=== PATIENT | male | born 1960 ===

== ENCOUNTER 2016-09-16 21:33 | Emergency (ER) | payer OTHER ==
[2016-09-16 21:33] VITALS: BMI 25.7
[2016-09-16 21:44] VITALS: BP 120/79; PULSE 74; RESP 20; TEMP 97.9; O2SAT 98
[2016-09-16] MEDS ORDERED: Lidocaine 1% Inj (20ml) INFIL STA (21:52)
[2016-09-16] MEDS ORDERED: Lidocaine 1% Inj (20ml) ONE (21:56)
[2016-09-16] MEDS ORDERED: Bacitracin 500 Units/gm Oint Foilpak UD ONE (21:57)
--- NOTE | 2016-09-16 22:31 | C.PDOC ---
History Of Present Illness 56 year old female presents to ED with complaints of laceration to right forearm when moving large picture frame and the glass cracked and cut his arm. He denies any numbness, weakness, limitation of arm movement and no foreign body sensation. Time Seen by Provider: 09/16/16 21:47 Chief Complaint (Nursing): Abnormal Skin Integrity History Per: Patient History/Exam Limitations: no limitations Onset/Duration Of Symptoms: Sudden Onset Current Symptoms Are (Timing): Still Present Location Of Injury: Right: Arm Past Medical History Reviewed: Historical Data, Nursing Documentation, Vital Signs Vital Signs: Last Vital Signs Temp 97.9 F 09/16/16 21:40 Pulse 74 09/16/16 21:40 Resp 20 09/16/16 21:40 BP 120/79 09/16/16 21:40 Pulse Ox 98 09/16/16 21:40 - Medical History PMH: Asthma, Fractures (right mid clavicle), Chronic Pain (chronic shoulder pain s/p work injury in 2009) Surgical History: Endoscopy, Hernia Repair (inguinal) - [employer] [facility] [employer] Procedures INJECT/INFUSE NEC (02/15/14) Family History: States: Unknown Family Hx - Social History Hx Tobacco Use: No Hx Alcohol Use: No Hx Substance Use: No - Immunization History Hx Tetanus Toxoid Vaccination: No Hx Influenza Vaccination: No Hx Pneumococcal Vaccination: No Review Of Systems Except As Marked, All Systems Reviewed And Found Negative. Skin: Positive for: Other (laceration) Physical Exam - Physical Exam Appears: Non-toxic, No Acute Distress Skin: Warm, Dry, Other (3cm x0.5cm laceration to right dorsal proximal forearm, no active bleeding) Head: Atraumatic, Normacephalic Eye(s): bilateral: Normal Inspection Neck: Normal ROM Extremity: Normal ROM, No Tenderness, Capillary Refill (<2 seconds), No Deformity, No Swelling, Other (laceration right arm) Pulses: Right Radial: Normal Neurological/Psych: Oriented x3, Normal Speech ED Course And Treatment O2 Sat by Pulse Oximetry: 98 Laceration - Laceration Repair right arm Wound Length (In cm): 3 Description Of Wound: Linear, Clean Wound Cleansed With: Betadine, Sterile Saline Anesthesia: Lidocaine 1% Wound Examination: Irrigated With Saline, No FB With Wound Exploration, No Tendon Injury With Wound Exploration Wound Closure: Suture Suture Technique And Material Used: Interrupted (3), Nylon (4-0) Wound Complexity: Simple Medical Decision Making Medical Decision Making: Patient with arm laceration. Laceration repair performed and tolerated well. Bacitracin and dressing applied Disposition Counseled Patient/Family Regarding: Diagnosis, Need For Followup - Disposition Disposition: HOME/ ROUTINE Disposition Time: 22:23 Condition: STABLE Additional Instructions: Keep area clean and dry. May wash gently with soap and water, do not use alcohol or iodine solution. Change dressing 1-2 times daily. Return to ER if fever occurs, redness or swelling around wound, pus in the wound. 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
== END 2016-09-16 22:40 | disposition home or self-care (01) ==
LOC: C.ER 21:33
DX: S41.111A Laceration without foreign body of right upper arm, initial encounter (principal); W25.XXXA Contact with sharp glass, initial encounter; Y93.89 Activity, other specified; Y92.9 Unspecified place or not applicable

== ENCOUNTER 2017-01-26 08:27 | Emergency (ER) | payer MEDICAID, OTHER ==
[2017-01-26 08:36] VITALS: BMI 26.6
[2017-01-26 08:40] VITALS: O2SAT 98
[2017-01-26] MEDS ORDERED: Sodium Chloride 0.9% 1,000 ML IV ONE (09:00)
[2017-01-26] MEDS ORDERED: Sodium Chloride 0.9% 1,000 ML ONE ×2 (09:08→11:03)
--- NOTE | 2017-01-26 09:12 | C.PDOC ---
History Of Present Illness 56 yr old male w/PMHx of colitis, last colonoscopy 1 yr ago- nrmal, hx of alcohol abuse, presents to the ER for evaluation of diffuse lower abdominal pain for the past few weeks associated with bright right blood in stool for the past 3 days. Patient reports noted watery diarrhea# 5-6 episode/daily with some blood since yesterday. Patient reports similar symptoms in past, " when was diagnosed with colitis". Otherwise, Patient denies fever, chills, headache, dizziness, neck pain, dyspnea, chest pain, palpitation, diaphoresis, SOB, nausea, vomiting, denies melena, dysuria, weakness or numbness. Ambulate to ED for evaluation, not in nay apparent distress. Time Seen by Provider: 01/26/17 08:36 Chief Complaint (Nursing): Abdominal Pain History Per: Patient History/Exam Limitations: no limitations Onset/Duration Of Symptoms: Days Past Medical History Reviewed: Historical Data, Nursing Documentation, Vital Signs Vital Signs: Last Vital Signs Temp 98.4 F 01/26/17 13:10 Pulse 77 01/26/17 13:10 Resp 18 01/26/17 13:10 BP 153/103 H 01/26/17 13:10 Pulse Ox 98 01/26/17 13:10 - Medical History PMH: Anxiety, Asthma, Fractures (right mid clavicle), Chronic Pain (chronic shoulder pain s/p work injury in 2009) Surgical History: Endoscopy, Hernia Repair (inguinal) - [facility] Procedures INJECT/INFUSE NEC (02/15/14) Family History: States: No Known Family Hx - Social History Hx Tobacco Use: No Hx Alcohol Use: No Hx Substance Use: No - Immunization History Hx Tetanus Toxoid Vaccination: Yes (up to date as of 6 months) Hx Influenza Vaccination: No Hx Pneumococcal Vaccination: No Review Of Systems Except As Marked, All Systems Reviewed And Found Negative. Constitutional: Negative for: Fever Cardiovascular: Negative for: Chest Pain, Palpitations Respiratory: Negative for: Shortness of Breath Gastrointestinal: Positive for: Abdominal Pain (Lower), Other ((+) Rectal bleeding with bright red blood). Negative for: Nausea, Vomiting Genitourinary: Negative for: Dysuria Neurological: Negative for: Weakness, Numbness Physical Exam - Physical Exam Appears: Non-toxic, No Acute Distress Skin: Warm, Dry, No Rash Head: Normacephalic Eye(s): bilateral: PERRL Nose: No Flaring Oral Mucosa: Moist, No Drooling Throat: No Drooling Neck: Trachea Midline, Supple Cardiovascular: Rhythm Regular, No Murmur Respiratory: No Decreased Breath Sounds, No Accessory Muscle Use, No Rales, No Rhonchi, No Stridor, No Wheezing Gastrointestinal/Abdominal: Soft, Tenderness (Diffuse mild lower abdominal tenderness), No Organomegaly, No Distention, No Guarding, No Rebound Rectal: Rectal Tone (normal), Heme Negative Back: No CVA Tenderness Extremity: Normal ROM, No Pedal Edema, No Swelling Neurological/Psych: Oriented x3, Normal Speech, Normal Motor, Normal Sensation, Normal Reflexes ED Course And Treatment - Laboratory Results Result Diagrams: 01/26/17 09:07 01/26/17 09:07 ECG: Interpreted By Me, Viewed By Me ECG Interpretation: Normal Interpretation Of ECG: SR@71/min, NAD, no acute T wave or ST-T changes. O2 Sat by Pulse Oximetry: 98 (RA) Pulse Ox Interpretation: Normal - Radiology CXR: Viewed By Me, Read By Radiologist CXR Interpretation: Yes: No Acute Disease - CT Scan/US CT - Abd & Pelvis w/ PO Contrast Other Rad Studies (CT/US): Read By Radiologist, Radiology Report Reviewed CT/US Interpretation: PROCEDURE: CT Abdomen and Pelvis without IV contrast. HISTORY: bloody diarrhea. COMPARISON: CT abdomen and pelvis without contrast performed 02/24/12. TECHNIQUE: Contiguous axial images of the abdomen and pelvis. Oral contrast was administered. No IV contrast given. Coronal and Sagittal reformats generated and reviewed. Radiation dose: Total exam DLP = 484.61 mGy-cm. This CT exam was performed using one or more of the following dose reduction techniques: Automated exposure control, adjustment of the mA and/ or kV according to patient size, and/or use of iterative reconstruction technique. FINDINGS: There is limited evaluation of the solid organs without the administration of IV contrast. LOWER THORAX: No visible consolidation, pleural effusion, or pneumothorax. LIVER: Hypoattenuation of the liver compatible with hepatic steatosis. GALLBLADDER AND BILE DUCTS: Unremarkable. PANCREAS: Unremarkable. SPLEEN: Unremarkable. ADRENALS: Unremarkable. KIDNEYS AND URETERS: No hydronephrosis or obstructing renal calculus. BLADDER : The urinary bladder appears unremarkable. REPRODUCTIVE: Unremarkable. APPENDIX: The presumed appendix appears within normal limits of caliber. No secondary signs of acute appendicitis. BOWEL: The stomach is nondistended. The bowel loops appear within normal limits of caliber without evidence of intestinal obstruction. Colonic wall thickening of the mid to distal transverse and left/rectosigmoid colon concerning for colitis (i.e. Infectious, inflammatory, ischemic). PERITONEUM: No significant free fluid. No definite free air. LYMPH NODES: No bulky lymphadenopathy identified. VASCULATURE: No aortic aneurysm. BONES: Degenerative changes. OTHER FINDINGS: None. IMPRESSION: Colonic wall thickening of the mid to distal transverse and left/ rectosigmoid colon concerning for colitis (i.e. Infectious, inflammatory, ischemic). Hypoattenuation of the liver compatible with hepatic steatosis. Progress Note: On re-eval, pt is afebrile, hemodynamicaly stable. NOn-toxic. Tolerate PO well in ED. Neck: SUpple,. Lungs: CTA B/L, BS equal B/L. CVS: (+) S1S2, reg. Abd: Benign, (-) guarding, (-) rebound. Back: (-) CVA tenderness. Blood work review, mild leukocytosis with left shift. CBC, UA- normal study. CT abd/plevis and c/w colitis. Case discussed with ED attending dionne Mitchell with discharge,outpty f/u recommend. results review and discussed with pt. Pt has clinical findings c/w colitis, afebrile, no acute leukocytosis, no anemia. Tolerate Po well. Pt advised, diet restriction. ref. to F/u with PMD, GI in 2- 3 days for re-eavl. return to ED if any worsening ro new changes. Medical Decision Making Medical Decision Making: PLAN: * CT - Abd & Pelvis w/ PO & IV Contrast * CXR * EKG * Troponin * CBC * CMP * Urinalysis * Zofran IVP * Sodium Chloride IV Disposition Counseled Patient/Family Regarding: Studies Performed, Diagnosis, Need For Followup, Rx Given - Disposition Referrals: Jef Manzano MD [Staff Provider] - Disposition: HOME/ ROUTINE Disposition Time: 12:37 Condition: STABLE Additional Instructions: TAKE MEDICATION PRESCRIBED DIET RESTRICTION, AVOID SPICY, GREASY FOOD FOR 2-3 WEEKS FOLLOW UP WITH GI IN 1-2 DAYS FOR RE-EVALUATION. RETURN TO ED IF ANY WORSENING OR NEW CHANGES. 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 - Scribe Statement The provider has reviewed the documentation as recorded by the Scribe Jina Lamb All medical record entries made by the Mariibdebby were at my direction and personally dictated by me. I have reviewed the chart and agree that the record accurately reflects my personal performance of the history, physical exam, medical decision making, and the department course for this patient. I have also personally directed, reviewed, and agree with the discharge instructions and disposition.
[2017-01-26 09:14] LABS: BASO # 0.1 K/uL (0.0-0.2); BASO % 0.7 % (0.0-2.0); EOS # 0.6 K/uL (0.0-0.7); EOS % 5.1 % (0.0-4.0); LYMPH # 1.9 K/uL (1.0-4.3); MEAN CELL VOLUME 90.4 fL (80.0-94.0); MEAN CORPUSCULAR HEMOGLOBIN 31.3 pg (27.0-31.0); MEAN CORPUSCULAR HGB CONC 34.7 g/dL (33.0-37.0); MONO # 1.1 K/uL (0.0-0.8); MONO % 9.3 % (0.0-10.0); NRBC % 0.1 % (0.0-2.0); RED CELL DISTRIBUTION WIDTH 12.6 % (11.5-14.5); WHITE BLOOD COUNT 12.1 K/uL (4.8-10.8)
[2017-01-26 09:19] LABS: RBC URINE 5 /hpf (0-3); URINE BILIRUBIN NEGATIVE (NEGATIVE); URINE BLOOD 1+ (NEGATIVE); URINE COLOR Yellow (YELLOW); URINE GLUCOSE (UA) NORMAL (Normal); URINE KETONE NEGATIVE (NEGATIVE); URINE LEUKOCYTE ESTERASE NEG Leu/uL (Negative); URINE PROTEIN NEGATIVE (NEGATIVE); URINE UROBILINOGEN NORMAL mg/dL (0.2-1.0); WBC URINE 1 /hpf (0-5)
[2017-01-26 09:24] LABS: INR 1.1
[2017-01-26 09:25] LABS: ALB/GLOB RATIO 1.1 (1.0-2.1); ALKALINE PHOSPHATASE 68 U/L (38-126); ALT/SGPT 57 U/L (21-72); AST/SGOT 26 U/L (17-59); BILIRUBIN,TOTAL 0.5 mg/dL (0.2-1.3); BLOOD UREA NITROGEN 10 mg/dL (9-20); CARBON DIOXIDE 30 mmol/L (22-30); CHLORIDE 102 mmol/L (98-107); GFR AFRICAN-AMERICAN > 60; GLUCOSE,RANDOM 129 mg/dL (75-110); SODIUM 137 mmol/L (132-148); TOTAL PROTEIN 7.6 g/dL (6.3-8.3)
[2017-01-26] MEDS ORDERED: Iohexol 240 (50 ml) ONE (09:44)
--- NOTE | 2017-01-26 10:22 | RAD ---
PROCEDURE: CHEST RADIOGRAPH, 1 VIEW HISTORY: Abdominal pain COMPARISON: 04/22/2016 FINDINGS: LUNGS: Biapical pleural thickening. No focal infiltrate or effusion. PLEURA: No pneumothorax or pleural fluid seen. CARDIOVASCULAR: Normal. OSSEOUS STRUCTURES: Chronic deformity the mid right clavicle. VISUALIZED UPPER ABDOMEN: Normal. OTHER FINDINGS: None. IMPRESSION: No active disease.
--- NOTE | 2017-01-26 12:21 | CT ---
PROCEDURE: CT Abdomen and Pelvis without IV contrast. HISTORY: bloody diarrhea COMPARISON: CT abdomen and pelvis without contrast performed 02/24/12 TECHNIQUE: Contiguous axial images of the abdomen and pelvis. Oral contrast was administered. No IV contrast given. Coronal and Sagittal reformats generated and reviewed. Radiation dose: Total exam DLP = 484.61 mGy-cm. This CT exam was performed using one or more of the following dose reduction techniques: Automated exposure control, adjustment of the mA and/or kV according to patient size, and/or use of iterative reconstruction technique. FINDINGS: There is limited evaluation of the solid organs without the administration of IV contrast. LOWER THORAX: No visible consolidation, pleural effusion, or pneumothorax. LIVER: Hypoattenuation of the liver compatible with hepatic steatosis. GALLBLADDER AND BILE DUCTS: Unremarkable. PANCREAS: Unremarkable. SPLEEN: Unremarkable. ADRENALS: Unremarkable. KIDNEYS AND URETERS: No hydronephrosis or obstructing renal calculus. BLADDER: The urinary bladder appears unremarkable. REPRODUCTIVE: Unremarkable. APPENDIX: The presumed appendix appears within normal limits of caliber. No secondary signs of acute appendicitis. BOWEL: The stomach is nondistended. The bowel loops appear within normal limits of caliber without evidence of intestinal obstruction. Colonic wall thickening of the mid to distal transverse and left/rectosigmoid colon concerning for colitis (i.e. Infectious, inflammatory, ischemic). PERITONEUM: No significant free fluid. No definite free air. LYMPH NODES: No bulky lymphadenopathy identified. VASCULATURE: No aortic aneurysm. BONES: Degenerative changes. OTHER FINDINGS: None. IMPRESSION: Colonic wall thickening of the mid to distal transverse and left/rectosigmoid colon concerning for colitis (i.e. Infectious, inflammatory, ischemic). Hypoattenuation of the liver compatible with hepatic steatosis.
[2017-01-26 13:14] VITALS: BP 153/103; PULSE 77; RESP 18; TEMP 98.4
--- NOTE | 2017-01-26 20:53 | CARD ---
APPROVED REPORT EKG Measurement Heart [id number] <Conclusion> Normal sinus rhythm Normal ECG
== END 2017-01-26 13:18 | disposition home or self-care (01) ==
LOC: C.ER 08:27
DX: K52.9 Noninfective gastroenteritis and colitis, unspecified (principal)
CPT/HCPCS: 71010; 74176; 80053; 81001; 83690; 84484; 85025; 85610; 85730; 93005; 96361; 96374; 99285; J2405; J7040

== ENCOUNTER 2017-02-09 15:54 | Emergency (ER) | payer OTHER ==
[2017-02-09 16:03] VITALS: BMI 25.0
[2017-02-09] MEDS ORDERED: Sodium Chloride 0.9% 1,000 ML IV ONE (18:40)
--- NOTE | 2017-02-09 18:46 | C.PDOC ---
History Of Present Illness 56 year old male, with PMHx of ulcerative colitis, presents to ED for evaluation of worsening RLQ abdominal pain associated with n/v/d since this morning. Pt reports having 2 episode of watery diarrhea with blood in the ER. (+ ) sick contact with 4 family members having similar symptoms of vomiting and diarrhea. Pt denies chest pain, shortness of breath, or fever. Time Seen by Provider: 02/09/17 18:15 Chief Complaint (Nursing): GI Problem History Per: Patient History/Exam Limitations: no limitations Onset/Duration Of Symptoms: Days Current Symptoms Are (Timing): Still Present Location Of Pain/Discomfort: RLQ Radiation Of Pain To:: None Quality Of Discomfort: Burning, Gas Associated Symptoms: Chills, Nausea, Vomiting, Diarrhea. denies: Fever, Loss Of Appetite, Back Pain, Chest Pain, Constipation, Urinary Symptoms Exacerbating Factors: None Alleviating Factors: None Recent travel outside of the [place]: No Additional History Per: Patient Past Medical History Reviewed: Historical Data, Nursing Documentation, Vital Signs Vital Signs: Last Vital Signs Temp 97.4 F L 02/09/17 22:23 Pulse 74 02/09/17 22:23 Resp 18 02/09/17 22:23 BP 102/63 02/09/17 22:23 Pulse Ox 100 02/09/17 22:35 - Medical History PMH: Anxiety, Asthma, Fractures (right mid clavicle), Chronic Pain (chronic shoulder pain s/p work injury in 2009) Surgical History: Endoscopy, Hernia Repair (inguinal) - [facility] Procedures INJECT/INFUSE NEC (02/15/14) Family History: States: Unknown Family Hx - Social History Hx Tobacco Use: No Hx Alcohol Use: No Hx Substance Use: No - Immunization History Hx Tetanus Toxoid Vaccination: No Hx Influenza Vaccination: No Hx Pneumococcal Vaccination: No Review Of Systems Except As Marked, All Systems Reviewed And Found Negative. Constitutional: Negative for: Fever, Chills Cardiovascular: Negative for: Chest Pain, Palpitations, Light Headedness Respiratory: Negative for: Cough, Shortness of Breath Gastrointestinal: Positive for: Nausea, Vomiting, Abdominal Pain, Diarrhea, Hematochezia. Negative for: Constipation, Hematemesis Genitourinary: Negative for: Dysuria, Frequency, Hematuria Musculoskeletal: Negative for: Back Pain Neurological: Negative for: Headache, Dizziness Physical Exam - Physical Exam Appears: Non-toxic, Other (in pain, moaning) Skin: Normal Color, Warm, Dry Head: Atraumatic, Normacephalic Eye(s): bilateral: Normal Inspection Oral Mucosa: Moist Neck: Normal ROM, Supple Chest: Symmetrical Cardiovascular: Rhythm Regular, No Murmur Respiratory: Normal Breath Sounds, No Rales, No Rhonchi, No Wheezing Gastrointestinal/Abdominal: Soft, Tenderness (RLQ, LLQ), No Distention, No Guarding, No Rebound, No Other (no fluid wave) Back: No CVA Tenderness Extremity: Normal ROM, No Pedal Edema Neurological/Psych: Oriented x3, Normal Speech ED Course And Treatment - Laboratory Results Result Diagrams: 02/09/17 18:56 02/09/17 18:56 Lab Interpretation: Normal O2 Sat by Pulse Oximetry: 100 (RA) Pulse Ox Interpretation: Normal Reevaluation Time: 22:33 Reassessment Condition: Improved (pain much reduced, pt wants d/c home.) Medical Decision Making Medical Decision Making: Blood work, UA, obstructive series ordered and reviewed. Pt was given Morphine, Pepcid, Zofran, Toradol, and IV fluids. UC with persistent enteritis, mild ilius no AP/Obst Disposition Doctor Will See Patient In The: Office Counseled Patient/Family Regarding: Studies Performed, Diagnosis - Disposition Disposition: HOME/ ROUTINE Disposition Time: 22:35 Condition: GOOD Instructions: Ulcerative Colitis (ED) Forms: [employer] (Occitan) - Clinical Impression Clinical Impression: Ulcerative colitis - Scribe Statement The provider has reviewed the documentation as recorded by the Nelly Jernigan All medical record entries made by the Mariibdebby were at my direction and personally dictated by me. I have reviewed the chart and agree that the record accurately reflects my personal performance of the history, physical exam, medical decision making, and the department course for this patient. I have also personally directed, reviewed, and agree with the discharge instructions and disposition.
[2017-02-09 19:00] LABS: MONO # 0.7 K/uL (0.0-0.8); WHITE BLOOD COUNT 9.1 K/uL (4.8-10.8)
[2017-02-09 19:14] LABS: BASO % 0.5 % (0.0-2.0); EOS % 0.4 % (0.0-4.0); HEMATOCRIT 50.9 % (35.0-51.0); LYMPH # 0.9 K/uL (1.0-4.3); MEAN CELL VOLUME 90.4 fL (80.0-94.0); MEAN CORPUSCULAR HEMOGLOBIN 31.2 pg (27.0-31.0); MEAN CORPUSCULAR HGB CONC 34.5 g/dL (33.0-37.0); MEAN PLATELET VOLUME 7.8 fL (7.2-11.7); MONO % 7.7 % (0.0-10.0); NRBC % 0.2 % (0.0-2.0); RED CELL DISTRIBUTION WIDTH 13.1 % (11.5-14.5)
[2017-02-09 19:24] LABS: ALB/GLOB RATIO 1.2 (1.0-2.1); ALKALINE PHOSPHATASE 65 U/L (38-126); ALT/SGPT 52 U/L (21-72); AST/SGOT 28 U/L (17-59); BILIRUBIN,TOTAL 0.8 mg/dL (0.2-1.3); BLOOD UREA NITROGEN 22 mg/dL (9-20); CALCIUM 8.2 mg/dl (8.6-10.4); CARBON DIOXIDE 28 mmol/L (22-30); CHLORIDE 95 mmol/L (98-107); GFR AFRICAN-AMERICAN > 60; GLUCOSE,RANDOM 120 mg/dL (75-110); POTASSIUM 4.6 mmol/L (3.6-5.2); SODIUM 134 mmol/L (132-148); TOTAL PROTEIN 7.7 g/dL (6.3-8.3)
[2017-02-09] MEDS ORDERED: Sodium Chloride 0.9% 1,000 ML ONE (19:29)
[2017-02-09] MEDS ORDERED: Morphine 4 MG/ML VIAL ONE (19:30)
[2017-02-09] MEDS ORDERED: Iohexol 350mg/ml 100 ML ONE (19:47)
[2017-02-09 20:56] LABS: RBC URINE 1 /hpf (0-3); URINE BACTERIA OCC (<OCC); URINE BILIRUBIN NEGATIVE (NEGATIVE); URINE BLOOD NEGATIVE (NEGATIVE); URINE COLOR Yellow (YELLOW); URINE GLUCOSE (UA) NORMAL (Normal); URINE KETONE NEGATIVE (NEGATIVE); URINE LEUKOCYTE ESTERASE NEG Leu/uL (Negative); URINE PROTEIN 1+ mg/dL (NEGATIVE); URINE UROBILINOGEN NORMAL mg/dL (0.2-1.0); WBC URINE 2 /hpf (0-5)
--- NOTE | 2017-02-09 21:43 | CT ---
EXAM: CT Abdomen and Pelvis Without Intravenous Contrast EXAM DATE/TIME: 02/09/2017 8:41 PM CLINICAL HISTORY: 56 years old, male; Pain; Abdominal pain; Flank; Right lower quadrant (rlq); Patient HX: Ulcer vs colitis; Additional info: New rlq [id number], uc TECHNIQUE: Axial computed tomography images of the abdomen and pelvis without intravenous contrast. All CT scans at this facility use one or more dose reduction techniques, viz.: automated exposure control; ma/kV adjustment per patient size (including targeted exams where dose is matched to indication; i.e. head); or iterative reconstruction technique. Coronal and sagittal reformatted images were created and reviewed. COMPARISON: There are no prior studies for comparison. FINDINGS: Artifacts: Motion artifact degrades image quality. Lower thorax: Heart size is normal. There is a small hiatal hernia. There is minimal atelectasis and scarring at the lung bases. There is a granuloma at the right base ABDOMEN: Liver: There is fatty infiltration of the liver. Gallbladder and bile ducts: unremarkable Pancreas: unremarkable Spleen: unremarkable Adrenals: unremarkable Kidneys and ureters: unremarkable Stomach and bowel: Stomach is incompletely distended. Rotation is normal. There are mildly prominent small bowel loops in the left upper quadrant with wall thickening. Proximal and mid small bowel are distended with fluid. Distal ileum is collapsed. There is no obstruction. Ileocecal region is unremarkable. Appendix and terminal ileum are unremarkable. There are air-fluid levels in the colon. There is mild colonic wall thickening greatest distally. There is no colon obstruction. Appendix: See stomach and bowel PELVIS: Bladder: unremarkable Reproductive: There is a right hydrocele. Seminal vesicles and prostate are unremarkable. ABDOMEN and PELVIS: Intraperitoneal space: There is no free air or free fluid. Bones/joints: There are degenerative changes in the osseus structures. Soft tissues: There is a small fat containing umbilical hernia. There is a fat containing left inguinal hernia. There is a 1.7 x 2.8 x 2.9 cm lobulated nodular opacity in the right inguinal region. Vasculature: There are calcified phleboliths. Vascular structures are unremarkable. Lymph nodes: There is no pathologic adenopathy. IMPRESSION: Ileus with possible enteritis, no small bowel obstruction; no CT findings of appendicitis; mild colonic wall thickening, underdistention versus true thickening; fatty liver; fat-containing left inguinal hernia; small nodular opacity in the right inguinal region fluid versus a node
[2017-02-09 22:26] VITALS: BP 102/63; PULSE 74; RESP 18; TEMP 97.4
[2017-02-09 22:36] VITALS: O2SAT 100
--- NOTE | 2017-02-10 07:04 | RAD ---
PROCEDURE: Radiographs of the chest and abdomen (obstructive series) HISTORY: abd pain COMPARISON: No prior. TECHNIQUE: AP radiograph of the chest, with upright and supine radiographs of the abdomen. FINDINGS: CHEST: Lungs: Clear. Cardiovascular: Normal size heart. No pulmonary vascular congestion. Pleura: No pleural fluid. No pneumothorax. Other findings: None. ABDOMEN AND PELVIS: Bowel: Air-fluid levels are seen in what appear to be large-bowel loops as well as central small bowel loops which may be compatible with diarrhea. Gas seen within within various large and small bowel loops without significant bowel distention of the pattern does not appear to represent one of obstruction at this time. . Free air: None. Bones: Unremarkable. Other findings: None. IMPRESSION: Unremarkable chest radiograph. No definite bowel obstruction identified however the bowel gas pattern may indicate diarrhea as discussed above. Please see separate abdomen and pelvis CT examination without contrast 02/09/2017 which yields additional findings including but not limited to possible ileus pattern.
== END 2017-02-09 22:48 | disposition home or self-care (01) ==
LOC: C.ER 15:54
DX: K51.90 Ulcerative colitis, unspecified, without complications (principal)
CPT/HCPCS: 74022; 74176; 80053; 81001; 83690; 85025; 96361; 96374; 96375; 99285; J1885; J2270; J2405; J7040

== ENCOUNTER 2017-02-15 09:29 | Emergency (ER) | payer OTHER ==
[2017-02-15 09:30] VITALS: BMI 25.0
[2017-02-15 09:36] VITALS: RESP 18
[2017-02-15] MEDS ORDERED: Sodium Chloride 0.9% 1,000 ML IV ONE (10:48)
[2017-02-15] MEDS ORDERED: Sodium Chloride 0.9% 1,000 ML ONE (11:13)
--- NOTE | 2017-02-15 11:16 | C.PDOC ---
History Of Present Illness 56-year-old male, presents to the emergency department with complaints of nausea , that is associated with non-bloody/non-bilious vomiting for the past two days that is associated with body aches and chills. Patient denies diarrhea, or symptoms. Of note, patient has sick contacts at home with similar symptoms. No other complaints at this time. Time Seen by Provider: 02/15/17 09:43 Chief Complaint (Nursing): Flu-like Symptoms History Per: Patient History/Exam Limitations: no limitations Onset/Duration Of Symptoms: Days Current Symptoms Are (Timing): Still Present Past Medical History Reviewed: Historical Data, Nursing Documentation, Vital Signs Vital Signs: Last Vital Signs Temp 98.1 F 02/15/17 09:32 Pulse 106 H 02/15/17 09:32 Resp 18 02/15/17 09:32 BP 137/91 H 02/15/17 09:32 Pulse Ox 100 02/15/17 11:19 - Medical History PMH: Anxiety, Asthma, Fractures (right mid clavicle), Chronic Pain (chronic shoulder pain s/p work injury in 2009) Surgical History: Endoscopy, Hernia Repair (inguinal) - [employer] Procedures INJECT/INFUSE NEC (02/15/14) Family History: States: No Known Family Hx - Social History Hx Tobacco Use: No Hx Alcohol Use: No Hx Substance Use: No - Immunization History Hx Tetanus Toxoid Vaccination: No Hx Influenza Vaccination: No Hx Pneumococcal Vaccination: No Review Of Systems Except As Marked, All Systems Reviewed And Found Negative. Constitutional: Negative for: Fever, Chills Cardiovascular: Negative for: Chest Pain, Palpitations Respiratory: Negative for: Shortness of Breath Gastrointestinal: Positive for: Nausea, Vomiting, Abdominal Pain. Negative for : Diarrhea Musculoskeletal: Negative for: Back Pain Skin: Negative for: Rash Neurological: Negative for: Weakness, Numbness Physical Exam - Physical Exam Appears: Non-toxic, No Acute Distress Skin: Warm, Dry, No Rash Head: Atraumatic, Normacephalic Eye(s): bilateral: Normal Inspection, PERRL Nose: Normal Oral Mucosa: Moist Lips: Normal Appearing Neck: Normal ROM Cardiovascular: Rhythm Regular, No Murmur Respiratory: Normal Breath Sounds, No Accessory Muscle Use Gastrointestinal/Abdominal: Soft, Tenderness, No Guarding, No Rebound Extremity: Normal ROM Neurological/Psych: Oriented x3, Normal Speech ED Course And Treatment - Laboratory Results Result Diagrams: 02/15/17 11:22 02/15/17 11:22 O2 Sat by Pulse Oximetry: 100 Medical Decision Making Medical Decision Making: Plan: * CMP, Lipase * CBC * Chest X-Ray * X-Ray: Abdomen * IVF, Zofran * Reassess and Disposition Disposition - Disposition Referrals: [facility] [Outside] Disposition: HOME/ ROUTINE Disposition Time: 14:18 Condition: GOOD Additional Instructions: Follow up with the medical doctor within 1-2 days. Return if worsened. Prescriptions: Docusate [Colace] 100 mg PO DAILY #30 cap Polyethylene Glycol 3350 [Miralax] 17 gm PO DAILY PRN #100 ml PRN Reason: Constipation Instructions: Viral Syndrome (ED) Forms: [employer] (Divehi) - Clinical Impression Clinical Impression: Viral syndrome - Scribe Statement The provider has reviewed the documentation as recorded by the Scribe (Velasquez Grissom) All medical record entries made by the Scribe were at my direction and personally dictated by me. I have reviewed the chart and agree that the record accurately reflects my personal performance of the history, physical exam, medical decision making, and the department course for this patient. I have also personally directed, reviewed, and agree with the discharge instructions and disposition.
[2017-02-15 11:33] LABS: BASO # 0.1 K/uL (0.0-0.2); BASO % 1.2 % (0.0-2.0); EOS # 0.1 K/uL (0.0-0.7); EOS % 1.3 % (0.0-4.0); HEMOGLOBIN 15.3 g/dL (12.0-18.0); LYMPH % 12.7 % (20.0-40.0); MEAN CORPUSCULAR HEMOGLOBIN 31.7 pg (27.0-31.0); MEAN CORPUSCULAR HGB CONC 35.7 g/dL (33.0-37.0); MEAN PLATELET VOLUME 7.6 fL (7.2-11.7); MONO # 1.5 K/uL (0.0-0.8); MONO % 19.6 % (0.0-10.0); NEUT # 5.1 K/uL (1.8-7.0); NEUT % 65.2 % (50.0-75.0); RBC 4.83 Mil/uL (4.40-5.90); RED CELL DISTRIBUTION WIDTH 12.5 % (11.5-14.5); WHITE BLOOD COUNT 7.8 K/uL (4.8-10.8)
[2017-02-15 11:44] LABS: ALB/GLOB RATIO 1.3 (1.0-2.1); ALBUMIN 4.3 g/dL (3.5-5.0); ALT/SGPT 70 U/L (21-72); AST/SGOT 36 U/L (17-59); BLOOD UREA NITROGEN 7 mg/dL (9-20); CALCIUM 8.5 mg/dl (8.6-10.4); GFR AFRICAN-AMERICAN > 60; GFR NON-AFRICAN AMERICAN > 60; LIPASE 152 U/L (23-300)
[2017-02-15 14:25] VITALS: BP 133/84; PULSE 88; TEMP 98.4; O2SAT 97
== END 2017-02-15 14:28 | disposition home or self-care (01) ==
LOC: C.ER 09:29
DX: B34.9 Viral infection, unspecified (principal)
CPT/HCPCS: 80053; 83690; 85025; 96361; 96374; 96375; 99284; J1885; J2405; J7040

== ENCOUNTER 2017-04-06 07:35 | Emergency (ER) | payer OTHER ==
[2017-04-06 07:44] VITALS: BMI 26.6
[2017-04-06 07:46] VITALS: BP 146/90; PULSE 66; RESP 20; TEMP 98.1; O2SAT 98
--- NOTE | 2017-04-06 08:00 | C.PDOC ---
History Of Present Illness 56 year old male with PMH of asthma presents to ED with complaints of cough and wheezing for 4 days. Patient reports having to use his nebulizer more often. He reports mild sputum production which is clear. Denies fever, chest pain, SOB. Time Seen by Provider: 04/06/17 07:49 Chief Complaint (Nursing): Cough, Cold, Congestion History Per: Patient History/Exam Limitations: no limitations Onset/Duration Of Symptoms: Days Current Symptoms Are (Timing): Still Present Associated Symptoms: Cough, Sputum Past Medical History Reviewed: Historical Data, Nursing Documentation, Vital Signs Vital Signs: Last Vital Signs Temp 98.1 F 04/06/17 07:44 Pulse 66 04/06/17 07:44 Resp 20 04/06/17 07:44 BP 146/90 04/06/17 07:44 Pulse Ox 98 04/06/17 08:06 - Medical History PMH: Anxiety, Asthma, Fractures (right mid clavicle), Chronic Pain (chronic shoulder pain s/p work injury in 2009) Surgical History: Endoscopy, Hernia Repair (inguinal) - [employer] Procedures INJECT/INFUSE NEC (02/15/14) Family History: States: No Known Family Hx - Social History Hx Tobacco Use: No Hx Alcohol Use: No Hx Substance Use: No - Immunization History Hx Tetanus Toxoid Vaccination: No Hx Influenza Vaccination: No Hx Pneumococcal Vaccination: No Review Of Systems Cardiovascular: Negative for: Chest Pain Respiratory: Positive for: Cough, Sputum, Wheezing. Negative for: Shortness of Breath Gastrointestinal: Negative for: Nausea, Vomiting Skin: Negative for: Rash Physical Exam - Physical Exam Appears: Non-toxic, No Acute Distress Skin: Warm, Dry, No Rash Head: Atraumatic, Normacephalic Eye(s): bilateral: Normal Inspection Oral Mucosa: Moist Throat: Normal, No Erythema, No Exudate Neck: Normal ROM, Supple Cardiovascular: Rhythm Regular, No Murmur Respiratory: Normal Breath Sounds, No Rales, No Rhonchi, No Wheezing Gastrointestinal/Abdominal: Soft, No Tenderness, No Guarding, No Rebound Extremity: No Pedal Edema, Capillary Refill (<2 seconds) Neurological/Psych: Oriented x3 ED Course And Treatment O2 Sat by Pulse Oximetry: 98 (RA) Pulse Ox Interpretation: Normal Medical Decision Making Medical Decision Making: Patient without fever and in no respiratory distress. Lungs are clear bilaterally. Patient wants prednisone, and oral prednisone was ordered. Patient stable for discharge. Patient feels comfortable going home and instructed to follow up in the clinic or return to ER if symptoms persist or worsen. Disposition Counseled Patient/Family Regarding: Diagnosis, Need For Followup, Rx Given - Disposition Referrals: Homer Kaufman MD [Medical Doctor] - Disposition: HOME/ ROUTINE Disposition Time: 08:03 Condition: STABLE Additional Instructions: Your prescription was sent to [facility] pharmacy Take prednisone daily Continue using nebulizer as needed Please follow up with your primary doctor Prescriptions: Prednisone 50 mg PO DAILY #4 tablet Instructions: Upper Respiratory Infection (ED) Forms: [employer] (French) - POA Present On Arrival: None - Clinical Impression Clinical Impression: Upper respiratory infection, Asthma exacerbation - PA / EXECUTIVE RECRUITER / Resident Statement MD/DO has reviewed & agrees with the documentation as recorded. - Scribe Statement The provider has reviewed the documentation as recorded by the Scribdebby Hughes All medical record entries made by the Mariibdebby were at my direction and personally dictated by me. I have reviewed the chart and agree that the record accurately reflects my personal performance of the history, physical exam, medical decision making, and the department course for this patient. I have also personally directed, reviewed, and agree with the discharge instructions and disposition.
== END 2017-04-06 08:17 | disposition home or self-care (01) ==
LOC: C.ER 07:35
DX: J45.901 Unspecified asthma with (acute) exacerbation (principal); J06.9 Acute upper respiratory infection, unspecified

== ENCOUNTER 2018-02-25 10:03 | Emergency (ER) | payer OTHER ==
[2018-02-25 10:03] VITALS: BMI 26.6
[2018-02-25 10:09] VITALS: BP 138/88; PULSE 82; RESP 20; TEMP 98; O2SAT 98
--- NOTE | 2018-02-25 10:20 | C.PDOC ---
History Of Present Illness 57 year old male, whose past medical history includes asthma and bronchitis, presents to the ED for evaluation of generalized body aches, non-productive cough and congestion which began two days ago. Patient denies history of smoking. Patient denies chest pain, nausea, vomiting, or recent travel. Time Seen by Provider: 02/25/18 10:11 Chief Complaint (Nursing): Cough, Cold, Congestion History Per: Patient History/Exam Limitations: no limitations Onset/Duration Of Symptoms: Days (2) Current Symptoms Are (Timing): Still Present Associated Symptoms: Fever, Cough, Nasal Congestion. denies: Sputum, Nausea, Vomiting Recent travel outside of the [place]: No Additional History Per: Patient Past Medical History Reviewed: Historical Data, Nursing Documentation, Vital Signs Vital Signs: Last Vital Signs Temp 98 F 02/25/18 10:07 Pulse 82 02/25/18 10:07 Resp 20 02/25/18 10:07 BP 138/88 02/25/18 10:07 Pulse Ox 98 02/25/18 10:07 - Medical History PMH: Anxiety, Asthma, Fractures (right mid clavicle), Chronic Pain (chronic shoulder pain s/p work injury in 2009) Surgical History: Endoscopy, Hernia Repair (inguinal) - [employer] Procedures INJECT/INFUSE NEC (02/15/14) Family History: States: Unknown Family Hx - Social History Hx Tobacco Use: No Hx Alcohol Use: No Hx Substance Use: No - Immunization History Hx Tetanus Toxoid Vaccination: No Hx Influenza Vaccination: No Hx Pneumococcal Vaccination: No Review Of Systems Constitutional: Positive for: Chills Cardiovascular: Negative for: Chest Pain Respiratory: Positive for: Cough. Negative for: Sputum Gastrointestinal: Negative for: Nausea, Vomiting Physical Exam - Physical Exam Appears: Non-toxic, No Acute Distress Skin: Normal Color, Warm, Dry Head: Atraumatic, Normacephalic Eye(s): bilateral: Normal Inspection Ear(s): Bilateral: Normal Nose: Normal, No Discharge Oral Mucosa: Moist Throat: Normal, No Erythema, No Exudate Neck: Supple Chest: Symmetrical, No Deformity, No Tenderness Cardiovascular: Rhythm Regular, No Murmur Respiratory: Normal Breath Sounds, No Rales, No Rhonchi, No Wheezing Extremity: Normal ROM, Capillary Refill (less than 2 seconds ) Neurological/Psych: Oriented x3, Normal Speech, Normal Cognition ED Course And Treatment O2 Sat by Pulse Oximetry: 98 (on RA) Pulse Ox Interpretation: Normal Medical Decision Making Medical Decision Making: Progress: On reassessment, patient is resting comfortably, showing no signs of distress and afebrile in the ED. Patient is stable for discharge and is advised to follow up with PMD within 1-2 days for further evaluation. Disposition Counseled Patient/Family Regarding: Diagnosis, Need For Followup - Disposition Disposition: HOME/ ROUTINE Disposition Time: 10:18 Condition: STABLE Additional Instructions: STEPHANY LEI, thank you for letting us take care of you today. Your provider was Alejandra Hall MD and you were treated for COUGHING/ASTHMA. The emergency medical care you received today was directed at your acute symptoms. If you were prescribed any medication, please fill it and take as directed. It may take several days for your symptoms to resolve. Return to the Emergency Department if your symptoms worsen, do not improve, or if you have any other problems. Please contact your doctor in 1-2 days. Bring any paperwork you were given at discharge with you along with any medications you are taking to your follow up visit. Our treatment cannot replace ongoing medical care by a primary care provider outside of the emergency department. Thank you for allowing the [facility] team to be part of your care today. Prescriptions: Oseltamivir Cap [Tamiflu] 75 mg PO BID #10 cap Instructions: Influenza (ED) Forms: [employer] (Hungarian), General Discharge Instructions - POA Present On Arrival: None - Clinical Impression Clinical Impression: Influenza-like illness - Scribe Statement The provider has reviewed the documentation as recorded by the Scribe (Alicja Jernigan) Provider Attestation: All medical record entries made by the Scribe were at my direction and personally dictated by me. I have reviewed the chart and agree that the record accurately reflects my personal performance of the history, physical exam, medical decision making, and the department course for this patient. I have also personally directed, reviewed, and agree with the discharge instructions and disposition.
== END 2018-02-25 10:34 | disposition home or self-care (01) ==
LOC: C.ER 10:03
DX: J11.1 Influenza due to unidentified influenza virus with other respiratory manifestations (principal)

== ENCOUNTER 2018-03-08 06:56 | Inpatient (IN) | payer OTHER ==
[2018-03-08 06:56] VITALS: BMI 26.6
[2018-03-08] MEDS ORDERED: Albuterol-Ipratrop 3 mg / 0.5 (3 ml) UD INH STA ×3 (07:31→07:32)
[2018-03-08] MEDS ORDERED: MethylPREDNISolone 40 mg Vial IVP STA (07:31)
[2018-03-08 07:49] LABS: BASO # 0.2 K/uL (0.0-0.2); BASO % 2.1 % (0.0-2.0); EOS # 0.2 K/uL (0.0-0.7); EOS % 2.6 % (0.0-4.0); HEMOGLOBIN 15.5 g/dL (12.0-18.0); LYMPH # 2.8 K/uL (1.0-4.3); LYMPH % 30.6 % (20.0-40.0); MEAN CORPUSCULAR HGB CONC 34.6 g/dL (33.0-37.0); MEAN PLATELET VOLUME 7.6 fL (7.2-11.7); MONO # 0.9 K/uL (0.0-0.8); MONO % 10.1 % (0.0-10.0); NEUT % 54.6 % (50.0-75.0); RBC 4.85 Mil/uL (4.40-5.90); RED CELL DISTRIBUTION WIDTH 12.8 % (11.5-14.5); WHITE BLOOD COUNT 9.1 K/uL (4.8-10.8)
[2018-03-08 07:50] LABS: MEAN CELL VOLUME 92.7 fL (80.0-94.0)
[2018-03-08] MEDS ORDERED: Albuterol-Ipratrop 3 mg / 0.5 (3 ml) UD ONE ×2 (07:51→07:57)
[2018-03-08 07:57] LABS: INR 1.1; PROTHROMBIN TIME 11.9 SECONDS (9.7-12.2)
[2018-03-08 08:04] LABS: ALB/GLOB RATIO 1.3 (1.0-2.1); ALBUMIN 4.3 g/dL (3.5-5.0); ALT/SGPT 36 U/L (21-72); AST/SGOT 29 U/L (17-59); BLOOD UREA NITROGEN 25 mg/dL (9-20); GFR NON-AFRICAN AMERICAN > 60
--- NOTE | 2018-03-08 08:07 | C.PDOC ---
History Of Present Illness 57 y/o male,w/PMhx of asthma, presents to the ER complaining of persistent wheezing and coughing which has been present for the past 2 weeks. Patient states that he was evaluated for similar symptoms in [place] ER 2 weeks ago and he was discharged with prescription for Tamiflu. Patient reports that he was also evaluated by his PMD and he was prescribed steroids. However, he reports that he took the medications without relief.Denies having fever, chills, CP, and SOB. Time Seen by Provider: 03/08/18 07:26 Chief Complaint (Nursing): Cough, Cold, Congestion History Per: Patient History/Exam Limitations: no limitations Onset/Duration Of Symptoms: Days Current Symptoms Are (Timing): Still Present Severity: Moderate Past Medical History Reviewed: Historical Data, Nursing Documentation, Vital Signs Vital Signs: Last Vital Signs Temp 97.5 F L 03/08/18 07:03 Pulse 67 03/08/18 07:03 Resp 14 03/08/18 07:03 BP 131/87 03/08/18 07:03 Pulse Ox 98 03/08/18 07:03 - Medical History PMH: Anxiety, Asthma, Fractures (right mid clavicle), Chronic Pain (chronic shoulder pain s/p work injury in 2009) Surgical History: Endoscopy, Hernia Repair (inguinal) - [employer] Procedures INJECT/INFUSE NEC (02/15/14) Family History: States: No Known Family Hx - Social History Hx Tobacco Use: No Hx Alcohol Use: No Hx Substance Use: No - Immunization History Hx Tetanus Toxoid Vaccination: No Hx Influenza Vaccination: No Hx Pneumococcal Vaccination: No Review Of Systems Except As Marked, All Systems Reviewed And Found Negative. Constitutional: Negative for: Fever, Chills Cardiovascular: Negative for: Chest Pain Respiratory: Positive for: Cough, Wheezing. Negative for: Shortness of Breath Gastrointestinal: Negative for: Nausea, Vomiting Physical Exam - Physical Exam Appears: Non-toxic, No Acute Distress Skin: Normal Color, Warm, Dry Head: Atraumatic, Normacephalic Eye(s): bilateral: Normal Inspection Ear(s): Bilateral: Normal Nose: Normal Oral Mucosa: Moist Throat: Normal, No Erythema, No Exudate Neck: Supple Chest: Symmetrical Cardiovascular: Rhythm Regular Respiratory: No Rales, No Rhonchi, Wheezing (diffuse wheezing) Gastrointestinal/Abdominal: Soft, No Tenderness, No Guarding, No Rebound Neurological/Psych: Oriented x3, Normal Speech ED Course And Treatment - Laboratory Results Result Diagrams: 03/08/18 07:46 03/08/18 07:46 Lab Results: PT 11.9 SECONDS (9.7-12.2) 03/08/18 07:46 INR 1.1 03/08/18 07:46 APTT 33 SECONDS (21-34) 03/08/18 07:46 Total Bilirubin 0.4 mg/dL (0.2-1.3) 03/08/18 07:46 AST 29 U/L (17-59) 03/08/18 07:46 ALT 36 U/L (21-72) 03/08/18 07:46 Alkaline Phosphatase 81 U/L (38-126) 03/08/18 07:46 Total Protein 7.6 g/dL (6.3-8.3) 03/08/18 07:46 Albumin 4.3 g/dL (3.5-5.0) 03/08/18 07:46 Globulin 3.3 gm/dL (2.2-3.9) 03/08/18 07:46 Albumin/Globulin Ratio 1.3 (1.0-2.1) 03/08/18 07:46 O2 Sat by Pulse Oximetry: 98 (RA) Pulse Ox Interpretation: Normal - Other Rad CXR X-Ray: Viewed By Me, Read By Radiologist Interpretation: Date of service: 03/08/2018. HISTORY: SOB. COMPARISON: 01/26/2017. TECHNIQUE: Chest PA and lateral. FINDINGS: LUNGS: No active pulmonary disease. PLEURA: No significant pleural effusion identified. No pneumothorax apparent. CARDIOVASCULAR: No aortic atherosclerotic calcification present. Normal cardiac size. No pulmonary vascular congestion. OSSEOUS STRUCTURES: Thoracic spondylosis. Bilateral chromium clavicular joint arthrosis. Stable old right clavicular deformity-inferred old trauma. VISUALIZED UPPER ABDOMEN: Normal. OTHER FINDINGS: None. IMPRESSION: No active disease. Other findings as above. Medical Decision Making Medical Decision Making: asthma r/o pna Plan: --Labs --CXR --Solu-Medrol IV --Albuterol failure of ouptt, iv steriods needed accpeted dr fragoso Disposition - Disposition Disposition: HOSPITALIZED Disposition Time: 14:00 Condition: GOOD - Clinical Impression Clinical Impression: Asthma - Scribe Statement The provider has reviewed the documentation as recorded by the Nelly Henderson Provider Attestation: All medical record entries made by the Nelly were at my direction and personally dictated by me. I have reviewed the chart and agree that the record accurately reflects my personal performance of the history, physical exam, medical decision making, and the department course for this patient. I have also personally directed, reviewed, and agree with the discharge instructions and disposition. Decision To Admit - Pt Status Changed To: Hospital Disposition Of: Inpatient - Admit Certification Admit to Inpatient:: After my assessment, the patient will require hospitalization for at least two midnights. This is because of the severity of symptoms shown, intensity of services needed, and/or the medical risk in this patient being treated as an outpatient. - InPatient: Physician Admission Certification: I certify that this patient requires 2 or more midnights of care for the following reason:: failure of outpt - . Bed Request Type: Regular Admitting Physician: Mario Fragoso Patient Diagnosis: Asthma
--- NOTE | 2018-03-08 08:07 | RAD ---
Date of service: 03/08/2018 HISTORY: SOB COMPARISON: 01/26/2017 TECHNIQUE: Chest PA and lateral FINDINGS: LUNGS: No active pulmonary disease. PLEURA: No significant pleural effusion identified. No pneumothorax apparent. CARDIOVASCULAR: No aortic atherosclerotic calcification present. Normal cardiac size. No pulmonary vascular congestion. OSSEOUS STRUCTURES: Thoracic spondylosis. Bilateral chromium clavicular joint arthrosis. Stable old right clavicular deformity-inferred old trauma VISUALIZED UPPER ABDOMEN: Normal. OTHER FINDINGS: None. IMPRESSION: No active disease. Other findings as above.
[2018-03-08 09:17] VITALS: RESP 20
--- NOTE | 2018-03-08 11:16 | CP.PCM.HP ---
History of Present Illness - History of Present Illness History of Present Illness: Admission History and Physical for Dr. Howard Jernigan CC: cough, wheeze, SOB x 2 weeks 57 y/o male with PMHx of asthma and ulcerative colitis presents with cough, wheeze and SOB x 2 weeks. It has not improved or gotten worse the past 2weeks. Patient went to Dr. Kaufman his PMD a little less than 2 weeks ago due to his sx onset and he was given steroids and levofloxacin. He finished levo 500 mg x 7 days without any relief and also steroids. Patient has not had asthma exacerbation for probably more than 2 years, the last one was worse than this. He was in the ED for asthma exacerbation but didn't stay overnight. Patient takes albuterol and nebulizer at home usually < 1x/wk each. But last 2 weeks has been a few times a day. He knows that those meds are not good for his heart and was waking up in the middle of the night with the sx last night which all prompted him to go to the ED today. The duoneb x 3 and 125 mg solumedrol IV in the ED helped his sx. Now patient denies SOB, cough and wheeze. Patient endorses diffuse myalgias and some chills. Denies nausea, vomiting, diarrhea, sick contacts, fever, diaphoresis, chest pain, palpitations. Peak flow at bedside in the ED was 300. ROS: as per HPI PMHx: asthma and UC. Dx w/ UC 2 yrs ago, was hospitalized. Dr. Manzano is his GI. Saw him last week. Hasn't taken any meds for it for a while. [place] in 2 yrs rec'd. PSHx: inguinal hernia repair FHx: mother of colon CA in her 60s, father in the 80s of unk causes SocHx: Lives with daughter, Iesha, and her children. Former smoker 1/2 ppx in his teens for a few years. Denies EtOH and drug use. Meds: None for UC. albutuerol PRN and nebs PRN. All: seafood Present on Admission - Present on Admission Any Indicators Present on Admission: Yes Past Patient History - Infectious Disease Hx of Infectious Diseases: None - Past Medical History & Family History Past Medical History?: Yes - Past Social History Smoking Status: Never Smoked - CARDIAC Hx Cardiac Disorders: No - PULMONARY Hx Asthma: Yes - MUSCULOSKELETAL/RHEUMATOLOGICAL Hx Fractures: Yes (right mid clavicle) - GASTROINTESTINAL Hx Gastrointestinal Disorders: Yes Hx Colitis: Yes (ulcerative colitis) - GENITOURINARY/GYNECOLOGICAL Hx Genitourinary Disorders: Yes Hx Prostate Problems: Yes - PSYCHIATRIC Hx Anxiety: Yes Hx Substance Use: No - SURGICAL HISTORY Other/Comment: knee surgery - ANESTHESIA Hx Anesthesia: Yes Hx Anesthesia Reactions: No Meds Allergies/Adverse Reactions: Allergies Allergy/AdvReac Type Severity Reaction Status Date / Time shrimp Allergy Intermediate SHORTNESS Verified 03/08/18 07:06 OF BREATH iodine AdvReac RASH Verified 03/08/18 07:06 seafood Allergy SHORTNESS Uncoded 03/08/18 07:06 OF BREATH Physical Exam - Constitutional Appears: Well, Non-toxic - Head Exam Head Exam: ATRAUMATIC, NORMAL INSPECTION, NORMOCEPHALIC - Eye Exam Eye Exam: EOMI, Normal appearance - ENT Exam ENT Exam: Normal Exam - Neck Exam Neck exam: Positive for: Normal Inspection - Respiratory Exam Respiratory Exam: Clear to Auscultation Bilateral, NORMAL BREATHING PATTERN (upper respiratory wheezing, opposed to wheezing from the lungs). absent: Accessory Muscle Use, Decreased Breath Sounds, Respiratory Distress - Cardiovascular Exam Cardiovascular Exam: REGULAR RHYTHM - GI/Abdominal Exam GI & Abdominal Exam: Normal Bowel Sounds, Soft - Extremities Exam Extremities exam: Positive for: normal inspection. Negative for: calf tenderness - Neurological Exam Neurological exam: Alert, Oriented x3 - Psychiatric Exam Psychiatric exam: Normal Affect, Normal Mood - Skin Skin Exam: Dry, Intact, Normal Color, Warm Results - Vital Signs Recent Vital Signs: Last Vital Signs Temp 97.9 F 03/08/18 10:45 Pulse 70 03/08/18 10:45 Resp 20 03/08/18 10:45 BP 115/73 03/08/18 10:45 Pulse Ox 95 03/08/18 10:45 - Labs Result Diagrams: 03/08/18 07:46 03/08/18 07:46 Labs: Laboratory Results - last 24 hr 03/08/18 03/08/18 03/08/18 07:46 07:46 07:46 WBC 9.1 RBC 4.85 Hgb 15.5 Hct 45.0 MCV 92.7 D MCH 32.0 H MCHC 34.6 RDW 12.8 Plt Count 379 MPV 7.6 Neut % (Auto) 54.6 Lymph % (Auto) 30.6 Woods % (Auto) 10.1 H Eos % (Auto) 2.6 Baso % (Auto) 2.1 H Neut # (Auto) 5.0 Lymph # (Auto) 2.8 Woods # (Auto) 0.9 H Eos # (Auto) 0.2 Baso # (Auto) 0.2 PT 11.9 INR 1.1 APTT 33 Sodium 137 Potassium 4.6 Chloride 100 Carbon Dioxide 29 Anion Gap 13 BUN 25 H Creatinine 0.7 L Est GFR ( Amer) > 60 Est GFR (Non-Af Amer) > 60 Random Glucose 99 Calcium 9.0 Total Bilirubin 0.4 AST 29 ALT 36 Alkaline Phosphatase 81 Total Protein 7.6 Albumin 4.3 Globulin 3.3 Albumin/Globulin Ratio 1.3 Influenza Typ A,B (EIA) 03/08/18 07:46 WBC RBC Hgb Hct MCV MCH MCHC RDW Plt Count MPV Neut % (Auto) Lymph % (Auto) Woods % (Auto) Eos % (Auto) Baso % (Auto) Neut # (Auto) Lymph # (Auto) Woods # (Auto) Eos # (Auto) Baso # (Auto) PT INR APTT Sodium Potassium Chloride Carbon Dioxide Anion Gap BUN Creatinine Est GFR ( Amer) Est GFR (Non-Af Amer) Random Glucose Calcium Total Bilirubin AST ALT Alkaline Phosphatase Total Protein Albumin Globulin Albumin/Globulin Ratio Influenza Typ A,B (EIA) Negative for flu a/b Assessment & Plan - Assessment and Plan (Free Text) Assessment: 57 y/o male with PMHx of asthma and ulcerative colitis presents with cough, wheeze and SOB x 2 weeks. asthma exacerbation -peak flow 300 on admission -duonebs 3ml q6h standing -methylprednisone 40 mg IV q8h standing -recheck peak flow after duonebs tx -maintain spo2 > 92%, patient now on RA w/o trouble Ulcerative colitis -controlled, and off meds -f/u with Dr. Manzano outpatient PRN and as recommended DVT ppx: heparin 5000 mg q8h GI ppx: not indicated Code: full case d/w Dr. Howard Ramírez PGY1
[2018-03-08] MEDS ORDERED: Magnesium Sulfate 1 gm in D5W 1 GM/100 ML BAG IVPB ONE (11:30)
[2018-03-08] MEDS: MethylPREDNISolone 40 mg Vial IV SCH ×2 (14:57→21:19)
--- NOTE | 2018-03-08 16:03 | CP.PCM.CON ---
History of Present Illness - History of Present Illness History of Present Illness: Reason for consult: asthma exacerbation HPI: 57 year old male with PMH of asthma and ulcerative colitis presents with worsening SOB and severe persistent dry cough starting 2 weeks ago. 2 weeks ago he was seen in ED for SOB, cough, muscle aches, and chills and was discharged with Rx for Tamiflu which he filled but did not help his symptoms. He then saw his PMD who prescribed steroids and a course of levofloxacin which also did not help his symptoms. Symptoms also not improved with OTC Robitussin. Upon arrival at ED today, he was treated with Duonebs x3 and Solu-Medrol IV to which he responded favorably. His cough is still present but he states symptoms are much improved. Denies fever, chills, myalgias, nausea, vomiting, diarrhea, chest pain, palpitations. Patient states he usually uses his albuterol inhaler 1-3 times per week, but has had to use it multiple times a day since symptoms started. The last time he had an asthma exacerbation this severe was over one year ago. His UC is reportedly in remission, he follows with his own GI doctor. He used to take mesalamine on and off for symptoms. PMH: asthma, ulcerative colitis PSH: right inguinal hernia repair All: shellfish FamH: mother of UC-related colon CA in her 60s, father in his 80s of unknown causes SocH: remote smoker 1/2 ppd in his teens for a couple years. Denies EtOH and illicit drug use ROS: 10 point ROS negative except as mentioned in HPI. Exam: Gen - no acute distress Card - RRR, no murmurs, rubs or gallops Lung - normal breathing pattern interrupted by frequent coughs, scattered wheezes bilaterally, worse on the right GI - abdomen soft, nontender, no rebound, guarding, or rigidity A&P 1. Asthma exacerbation - likely triggered by recent weather/environmental changes - 03/08/18 CXR: no active pulmonary disease - Peak flow at bedside was 300 L/min (vs expected 519 L/min) - symptoms improving - continue Duoneb 3mL RQ6 - continue Solu-Medrol 40mg IVP Q8 Past Patient History - Infectious Disease Hx of Infectious Diseases: None - Past Medical History & Family History Past Medical History?: Yes - Past Social History Smoking Status: Never Smoked - CARDIAC Hx Cardiac Disorders: No - PULMONARY Hx Asthma: Yes - MUSCULOSKELETAL/RHEUMATOLOGICAL Hx Fractures: Yes (right mid clavicle) - GASTROINTESTINAL Hx Gastrointestinal Disorders: Yes Hx Colitis: Yes (ulcerative colitis) - GENITOURINARY/GYNECOLOGICAL Hx Genitourinary Disorders: Yes Hx Prostate Problems: Yes - PSYCHIATRIC Hx Anxiety: Yes Hx Substance Use: No - SURGICAL HISTORY Other/Comment: knee surgery - ANESTHESIA Hx Anesthesia: Yes Hx Anesthesia Reactions: No Meds Allergies/Adverse Reactions: Allergies Allergy/AdvReac Type Severity Reaction Status Date / Time shrimp Allergy Intermediate SHORTNESS Verified 03/08/18 07:06 OF BREATH iodine AdvReac RASH Verified 03/08/18 07:06 seafood Allergy SHORTNESS Uncoded 03/08/18 07:06 OF BREATH - Medications Medications: Current Medications Albuterol/Ipratropium (Duoneb 3 Mg/0.5 Mg (3 Ml) Ud) 3 ml INH RQ6 [facility] Methylprednisolone (Solu-Medrol) 40 mg IV Q8 [facility] Last Admin: 03/08/18 14:57 Dose: 40 mg Results - Vital Signs Recent Vital Signs: Last Vital Signs Temp 97.9 F 03/08/18 10:45 Pulse 70 03/08/18 10:45 Resp 20 03/08/18 10:45 BP 115/73 03/08/18 10:45 Pulse Ox 98 03/08/18 14:38 - Labs Result Diagrams: 03/08/18 07:46 03/08/18 07:46 Labs: Laboratory Results - last 24 hr 03/08/18 03/08/18 03/08/18 07:46 07:46 07:46 WBC 9.1 RBC 4.85 Hgb 15.5 Hct 45.0 MCV 92.7 D MCH 32.0 H MCHC 34.6 RDW 12.8 Plt Count 379 MPV 7.6 Neut % (Auto) 54.6 Lymph % (Auto) 30.6 [place] % (Auto) 10.1 H Eos % (Auto) 2.6 Baso % (Auto) 2.1 H Neut # (Auto) 5.0 Lymph # (Auto) 2.8 [place] # (Auto) 0.9 H Eos # (Auto) 0.2 Baso # (Auto) 0.2 PT 11.9 INR 1.1 APTT 33 Sodium 137 Potassium 4.6 Chloride 100 Carbon Dioxide 29 Anion Gap 13 BUN 25 H Creatinine 0.7 L Est GFR ( Amer) > 60 Est GFR (Non-Af Amer) > 60 Random Glucose 99 Calcium 9.0 Total Bilirubin 0.4 AST 29 ALT 36 Alkaline Phosphatase 81 Total Protein 7.6 Albumin 4.3 Globulin 3.3 Albumin/Globulin Ratio 1.3 Influenza Typ A,B (EIA) 03/08/18 07:46 WBC RBC Hgb Hct MCV MCH MCHC RDW Plt Count MPV Neut % (Auto) Lymph % (Auto) [place] % (Auto) Eos % (Auto) Baso % (Auto) Neut # (Auto) Lymph # (Auto) [place] # (Auto) Eos # (Auto) Baso # (Auto) PT INR APTT Sodium Potassium Chloride Carbon Dioxide Anion Gap BUN Creatinine Est GFR ( Amer) Est GFR (Non-Af Amer) Random Glucose Calcium Total Bilirubin AST ALT Alkaline Phosphatase Total Protein Albumin Globulin Albumin/Globulin Ratio Influenza Typ A,B (EIA) Negative for flu a/b
[2018-03-08] MEDS: Albuterol-Ipratrop 3 mg / 0.5 (3 ml) UD INH SCH (20:06)
[2018-03-08] MEDS: Promethazine 6.25 MG/5 ML CUP PO PRN (21:19)
[2018-03-09] MEDS: MethylPREDNISolone 40 mg Vial IV SCH ×2 (06:27→14:00)
[2018-03-09] MEDS: Promethazine 6.25 MG/5 ML CUP PO PRN (06:27)
[2018-03-09 06:28] LABS: BASO # 0.2 K/uL (0.0-0.2); BASO % 0.9 % (0.0-2.0); HEMOGLOBIN 15.3 g/dL (12.0-18.0); LYMPH # 1.3 K/uL (1.0-4.3); LYMPH % 5.3 % (20.0-40.0); MEAN CELL VOLUME 92.9 fL (80.0-94.0); MEAN CORPUSCULAR HEMOGLOBIN 31.6 pg (27.0-31.0); MONO # 0.8 K/uL (0.0-0.8); MONO % 3.5 % (0.0-10.0); NEUT # 21.2 K/uL (1.8-7.0); NEUT % 90.3 % (50.0-75.0); RBC 4.84 Mil/uL (4.40-5.90)
[2018-03-09 06:39] LABS: PLATELET COUNT 492 K/uL (130-400); WHITE BLOOD COUNT 23.5 K/uL (4.8-10.8)
[2018-03-09 06:46] LABS: BLOOD UREA NITROGEN 22 mg/dL (9-20); CALCIUM 9.2 mg/dl (8.6-10.4); GFR NON-AFRICAN AMERICAN > 60
[2018-03-09 06:47] VITALS: O2SAT 97
[2018-03-09] MEDS: Albuterol-Ipratrop 3 mg / 0.5 (3 ml) UD INH SCH ×2 (07:35→13:20)
[2018-03-09 08:11] VITALS: BP 129/80; PULSE 81; TEMP 97.6
[2018-03-09 10:02] LABS: BANDS 6 % (0-2); LYMPHOCYTE 5 % (20-40); NEUTROPHIL 89 % (50-75); TOTAL CELLS COUNTED 100
[2018-03-09 10:04] LABS: PLATELET ESTIMATE SLIGHTLY INCREASED (NORMAL)
--- NOTE | 2018-03-09 10:23 | CP.PCM.PN ---
Subjective - Date & Time of Evaluation Date of Evaluation: 03/09/18 Time of Evaluation: 10:26 - Subjective Subjective: PGY-[address] Shannon Jernigan Patient seen and examined at bedside. No acute events overnight. Reports significant relief with duoneb treatment. Patient is eager to be discharged - discussed possibility of discharge with PO steroid taper, though patient does remain symptomatic (though improved) and is also afraid of having to return to ER. He complains of cough and (improving) chest tightness, but denies shortness of breath, dyspnea, chest pain. Objective - Vital Signs/Intake and Output Vital Signs (last 24 hours): Temp Pulse Resp BP Pulse Ox 97.6 F 81 20 129/80 97 03/09/18 08:08 03/09/18 08:08 03/09/18 08:08 03/09/18 08:08 03/09/18 08:08 Intake and Output: 03/09/18 03/09/18 06:59 18:59 Intake Total 300 Balance 300 - Medications Medications: Current Medications Albuterol/Ipratropium (Duoneb 3 Mg/0.5 Mg (3 Ml) Ud) 3 ml INH RQ6 [facility] Last Admin: 03/09/18 07:35 Dose: 3 ml Heparin Sodium (Porcine) (Heparin) 5,000 units SC Q8 [facility] Last Admin: 03/09/18 06:27 Dose: Not Given Methylprednisolone (Solu-Medrol) 40 mg IV Q8 [facility] Last Admin: 03/09/18 06:27 Dose: 40 mg Promethazine HCl (Phenergan Syrup) 6.25 mg PO Q6H PRN PRN Reason: Cough Last Admin: 03/09/18 06:27 Dose: 6.25 mg - Labs Labs: 03/09/18 06:20 03/09/18 06:20 PT 11.9 SECONDS (9.7-12.2) 03/08/18 07:46 INR 1.1 03/08/18 07:46 APTT 33 SECONDS (21-34) 03/08/18 07:46 - Head Exam Head Exam: ATRAUMATIC, NORMOCEPHALIC - Eye Exam Eye Exam: EOMI, Normal appearance - ENT Exam ENT Exam: Mucous Membranes Moist - Respiratory Exam Respiratory Exam: Wheezes. absent: Accessory Muscle Use, Chest Wall Tenderness, Rales, Rhonchi Additional comments: Coughing on exam, expiratory wheeze - Cardiovascular Exam Cardiovascular Exam: REGULAR RHYTHM, +S1, +S2 - GI/Abdominal Exam GI & Abdominal Exam: Soft, Normal Bowel Sounds. absent: Tenderness - Extremities Exam Extremities Exam: absent: Pedal Edema, Tenderness - Neurological Exam Neurological Exam: Alert, Awake, CN II-XII Intact, Oriented x3 - Psychiatric Exam Psychiatric exam: Normal Affect, Normal Mood - Skin Skin Exam: Dry, Intact Assessment and Plan - Assessment and Plan (Free Text) Assessment: 57 y/o male with PMHx of asthma and ulcerative colitis presents with cough, wheeze and SOB x 2 weeks - asthma exacerbation likely triggered by winter weather changes. Asthma Exacerbation, improving - 03/08/18 CXR: no active pulmonary disease -peak flow 300 on admission -duonebs 3ml q6h [facility] -methylprednisone 40 mg IV q8h [facility] -recheck peak flow after duonebs tx -maintain spo2 > 92%, patient now on RA breathing comfortably --Condition improving -Pulmonology consult, Dr. Bennett Ulcerative colitis -controlled, and off meds -f/u with Dr. Manzano outpatient DVT ppx: heparin 5000 mg q8h GI ppx: not indicated Code: full case d/w Dr. Howard Johnson, PGY-1
[2018-03-09] MEDS ORDERED: Influenza Vaccine 60 mcg/0.5 mL SYR (4YR UP) IM ONE (15:02)
[2018-03-09] MEDS ORDERED: Pneumococcal 23-Valent Vaccine IM ONE (15:02)
--- NOTE | 2018-03-09 15:26 | CP.PCM.PN ---
Subjective - Date & Time of Evaluation Date of Evaluation: 03/09/18 Time of Evaluation: 11:00 - Subjective Subjective: Patient seen and examined at bedside this AM. He is feeling much better. His dry cough is still present but has improved with nebulizer treatments and Solu- Medrol. He is talkative, in high spirits, and resting comfortably on room air. D enies chills, muscle aches, chest pain, palpitations. Exam: Gen - no acute distress Card - RRR, no murmurs, rubs or gallops Lung - normal breathing pattern, mild scattered wheezes bilaterally GI - abdomen soft, nontender, no rebound, guarding, or rigidity; reducible inguinal hernia noted on left A&P 1. Asthma exacerbation - likely triggered by recent weather/environmental changes - 03/08/18 CXR: no active pulmonary disease - symptoms improving - continue Duoneb 3mL RQ6 - taper steroids to PO Prednisone for discharge - patient stable from pulmonary standpoint Objective - Vital Signs/Intake and Output Vital Signs (last 24 hours): Temp Pulse Resp BP Pulse Ox 97.6 F 81 20 129/80 97 03/09/18 08:08 03/09/18 08:08 03/09/18 08:08 03/09/18 08:08 03/09/18 08:08 Intake and Output: 03/09/18 03/09/18 06:59 18:59 Intake Total 300 Balance 300 - Medications Medications: Current Medications Albuterol/Ipratropium (Duoneb 3 Mg/0.5 Mg (3 Ml) Ud) 3 ml INH RQ6 [facility] Last Admin: 03/09/18 07:35 Dose: 3 ml Heparin Sodium (Porcine) (Heparin) 5,000 units SC Q8 [facility] Last Admin: 03/09/18 13:52 Dose: Not Given Methylprednisolone (Solu-Medrol) 40 mg IV Q8 [facility] Last Admin: 03/09/18 14:00 Dose: 40 mg Promethazine HCl (Phenergan Syrup) 6.25 mg PO Q6H PRN PRN Reason: Cough Last Admin: 03/09/18 06:27 Dose: 6.25 mg - Labs Labs: 03/09/18 06:20 03/09/18 06:20 PT 11.9 SECONDS (9.7-12.2) 03/08/18 07:46 INR 1.1 03/08/18 07:46 APTT 33 SECONDS (21-34) 03/08/18 07:46
--- NOTE | 2018-03-09 16:36 | CP.PCM.DIS ---
Provider - Provider Date of Admission: 03/08/18 08:47 Attending physician: Mario Jernigan MD Consults: 03/08/18 11:07 Pulmonology Consult Routine Comment: Consulting Provider: Jaylen Bennett Consulting Physician: Jaylen Bennett Reason for Consult: asthma exacerbation Time Spent in preparation of Discharge (in minutes): 45 Diagnosis - Discharge Diagnosis (1) Asthma exacerbation Status: Acute Hospital Course - Lab Results Lab Results: Most Recent Lab Values WBC 23.5 K/uL (4.8-10.8) H D 03/09/18 06:20 RBC 4.84 Mil/uL (4.40-5.90) 03/09/18 06:20 Hgb 15.3 g/dL (12.0-18.0) 03/09/18 06:20 Hct 44.9 % (35.0-51.0) 03/09/18 06:20 MCV 92.9 fL (80.0-94.0) 03/09/18 06:20 MCH 31.6 pg (27.0-31.0) H 03/09/18 06:20 MCHC 34.0 g/dL (33.0-37.0) 03/09/18 06:20 RDW 13.0 % (11.5-14.5) 03/09/18 06:20 Plt Count 492 K/uL (130-400) H D 03/09/18 06:20 MPV 8.0 fL (7.2-11.7) 03/09/18 06:20 Neut % (Auto) 90.3 % (50.0-75.0) H 03/09/18 06:20 Lymph % (Auto) 5.3 % (20.0-40.0) L 03/09/18 06:20 [place] % (Auto) 3.5 % (0.0-10.0) 03/09/18 06:20 Eos % (Auto) 0.0 % (0.0-4.0) 03/09/18 06:20 Baso % (Auto) 0.9 % (0.0-2.0) 03/09/18 06:20 Neut # (Auto) 21.2 K/uL (1.8-7.0) H 03/09/18 06:20 Lymph # (Auto) 1.3 K/uL (1.0-4.3) 03/09/18 06:20 [place] # (Auto) 0.8 K/uL (0.0-0.8) 03/09/18 06:20 Eos # (Auto) 0.0 K/uL (0.0-0.7) 03/09/18 06:20 Baso # (Auto) 0.2 K/uL (0.0-0.2) 03/09/18 06:20 Neutrophils % (Manual) 89 % (50-75) H 03/09/18 06:20 Band Neutrophils % 6 % (0-2) H 03/09/18 06:20 Lymphocytes % (Manual) 5 % (20-40) L 03/09/18 06:20 Monocytes % (Manual) TEST NOT PERFORMED 03/09/18 06:20 Platelet Estimate Slightly increased (NORMAL) H 03/09/18 06:20 RBC Morphology Normal 03/09/18 06:20 PT 11.9 SECONDS (9.7-12.2) 03/08/18 07:46 INR 1.1 03/08/18 07:46 APTT 33 SECONDS (21-34) 03/08/18 07:46 Sodium 136 mmol/L (132-148) 03/09/18 06:20 Potassium 4.4 mmol/L (3.6-5.2) 03/09/18 06:20 Chloride 100 mmol/L (98-107) 03/09/18 06:20 Carbon Dioxide 24 mmol/L (22-30) 03/09/18 06:20 Anion Gap 16 (10-20) 03/09/18 06:20 BUN 22 mg/dL (9-20) H 03/09/18 06:20 Creatinine 0.8 mg/dL (0.8-1.5) 03/09/18 06:20 Est GFR ( Amer) > 60 03/09/18 06:20 Est GFR (Non-Af Amer) > 60 03/09/18 06:20 Random Glucose 134 mg/dL (75-110) H D 03/09/18 06:20 Calcium 9.2 mg/dl (8.6-10.4) 03/09/18 06:20 Phosphorus 3.8 mg/dL (2.5-4.5) 03/09/18 06:20 Magnesium 2.2 mg/dL (1.6-2.3) 03/09/18 06:20 Total Bilirubin 0.4 mg/dL (0.2-1.3) 03/08/18 07:46 AST 29 U/L (17-59) 03/08/18 07:46 ALT 36 U/L (21-72) 03/08/18 07:46 Alkaline Phosphatase 81 U/L (38-126) 03/08/18 07:46 Total Protein 7.6 g/dL (6.3-8.3) 03/08/18 07:46 Albumin 4.3 g/dL (3.5-5.0) 03/08/18 07:46 Globulin 3.3 gm/dL (2.2-3.9) 03/08/18 07:46 Albumin/Globulin Ratio 1.3 (1.0-2.1) 03/08/18 07:46 Influenza Typ A,B (EIA) Negative for flu a/b (NEGATIVE) 03/08/18 07:46 - Hospital Course Hospital Course: Initial HPI 57 y/o male with PMHx of asthma and ulcerative colitis presents with cough, wheeze and SOB x 2 weeks. It has not improved or gotten worse the past 2weeks. Patient went to Dr. Kaufman his PMD a little less than 2 weeks ago due to his sx onset and he was given steroids and levofloxacin. He finished levo 500 mg x 7 days without any relief and also steroids. Patient has not had asthma exacerbation for probably more than 2 years, the last one was worse than this. He was in the ED for asthma exacerbation but didn't stay overnight. Patient takes albuterol and nebulizer at home usually < 1x/wk each. But last 2 weeks has been a few times a day. He knows that those meds are not good for his heart and was waking up in the middle of the night with the sx last night which all prompted him to go to the ED today. The duoneb x 3 and 125 mg solumedrol IV in the ED helped his sx. Now patient d enies SOB, cough and wheeze. Patient endorses diffuse myalgias and some chills. Denies nausea, vomiting, diarrhea, sick contacts, fever, diaphoresis, chest pain, palpitations. Peak flow at bedside in the ED was 300. Hospital Course Patient was hospitalized with shortness of breath due to asthma exacerbation, likely brought on by winter weather changes. Patient was started on duonebs, solumedrol, and nasal canula O2. CXR showed no active disease. By hospital day #2, patient's shortness of breath had resolved and he was ready to be discharged. Imaging 03/08/18 CXR: no active pulmonary disease Discharge Exam - Head Exam Head Exam: ATRAUMATIC, NORMOCEPHALIC - Eye Exam Eye Exam: EOMI, Normal appearance - ENT Exam ENT Exam: Mucous Membranes Moist - Respiratory Exam Respiratory Exam: NORMAL BREATHING PATTERN, UNREMARKABLE. absent: Rales, Rhonchi, Wheezes - Cardiovascular Exam Cardiovascular Exam: REGULAR RHYTHM, +S1, +S2 - GI/Abdominal Exam GI & Abdominal Exam: Soft, Unremarkable. absent: Tenderness - Extremities Exam Extremities exam: normal inspection - Neurological Exam Neurological exam: Alert, CN II-XII Intact, Oriented x3 - Psychiatric Exam Psychiatric exam: Normal Affect, Normal Mood - Skin Skin Exam: Dry, Intact Discharge Plan - Discharge Medications Prescriptions: Albuterol HFA [Ventolin HFA 90 mcg/actuation (8 g)] 2 puff IH [id number] #1 puff Albuterol/Ipratropium [Duoneb 3 mg/0.5 mg (3 ml) UD] 3 ml INH RQ6 #50 neb Fluticasone/Vilanterol 100/25 [Breo Ellipta 100-25 MCG INH] 1 puff PO DAILY #1 puff Promethazine [Phenergan Syrup] 6.25 mg PO Q6H PRN #125 ml PRN Reason: Cough - Follow Up Plan Condition: GOOD Disposition: HOME/ ROUTINE Instructions: Asthma, Adult (DC), Albuterol, Promethazine, Fluticasone (Oral Inhalation) Additional Instructions: The following instructions were gone over with the patient and copy should be provided to him upon discharge: 1). Schedule follow up with [facility] Dr. Анна Bennett for further management of your Asthma by calling his office at [phone]. His office is located at [address] [place] [address] in [place], [place]. This appointment should take place in the next 7 to 10 days. 2). The following prescriptions were provided to you and you will need to have them filled at your pharmacy on your way home from the hospital: Promethazine 6.25 mg/5mL, 5 mL by mouth every 6 hours only as needed for severe coughing Albuterol HFA, 2 puffs inhalation by mouth ever 6 hours only as needed for severe shortness of breath/wheezing Breo Ellipta 100-25 mcg, 1 inhalation by mouth 1x/day at 8 AM everyday Albuterol/Ipratropium (3 mg/0.5 mg), 1 respule via home nebulizer machine (that you stated you had) every 6 hours on 03/09/18 and 03/10/18 and then only as needed every 6 hours on 03/11/18 Prednisone 10 m tablets by mouth all at once at 8 AM on 03/10/18 4 tablets by mouth all at once at 8 AM on 03/11/18 3 tablets by mouth all at once at 8 AM on 03/12/18 2 tablets by mouth all at once at 8 AM on 03/13/18 1 tablet by mouth all at once at 8 AM on 03/14/18 3). At the pharmacy purchase Pepcid 20 mg tablets and take 1 tablet by mouth with breakfast starting on 03/10/18 through 03/14/18. You do NOT need a prescription for this drug. The Pepcid will help protect your stomach while you are on the steroid Prednisone. 4). Follow up with GI DR. Manzano as instructed by him for you history of Ulcerative Colitis 5). Follow up with your primary care physician Dr. Kaufman a few days after you have followed up with [facility] Dr. Bennett 6). Please take care, be happy, and be well. Mario Jernigan D.O. Referrals: Jaylen Bennett MD [Staff Provider] -
== END 2018-03-09 15:51 | disposition home or self-care (01) | DRG 97 ==
LOC: C.ER 06:56 → C.3T 08:47
PROVIDERS: ADMIT Family Medicine; ATTEND Family Medicine
DX: J45.901 Unspecified asthma with (acute) exacerbation (principal); F41.9 Anxiety disorder, unspecified; Z87.891 Personal history of nicotine dependence; Z80.0 Family history of malignant neoplasm of digestive organs

== ENCOUNTER 2018-06-27 09:47 | Emergency (ER) | payer OTHER ==
[2018-06-27 09:47] VITALS: BMI 26.6
[2018-06-27] MEDS ORDERED: Sodium Chloride 0.9% 1,000 ML IV ONE (10:33)
[2018-06-27 10:39] LABS: BASO # 0.1 K/uL (0.0-0.2); BASO % 1.2 % (0.0-2.0); EOS # 0.3 K/uL (0.0-0.7); EOS % 3.5 % (0.0-4.0); HEMOGLOBIN 16.1 g/dL (12.0-18.0); LYMPH # 1.6 K/uL (1.0-4.3); LYMPH % 17.4 % (20.0-40.0); MEAN CELL VOLUME 91.9 fL (80.0-94.0); MEAN CORPUSCULAR HEMOGLOBIN 32.3 pg (27.0-31.0); MEAN CORPUSCULAR HGB CONC 35.2 g/dL (33.0-37.0); MEAN PLATELET VOLUME 7.6 fL (7.2-11.7); MONO # 0.9 K/uL (0.0-0.8); MONO % 9.8 % (0.0-10.0); NEUT # 6.3 K/uL (1.8-7.0); NEUT % 68.1 % (50.0-75.0); RBC 4.99 Mil/uL (4.40-5.90); RED CELL DISTRIBUTION WIDTH 12.9 % (11.5-14.5)
[2018-06-27 10:40] LABS: WHITE BLOOD COUNT 9.2 K/uL (4.8-10.8)
[2018-06-27] MEDS ORDERED: Sodium Chloride 0.9% 1,000 ML ONE (10:41)
[2018-06-27 10:47] LABS: INR 1.2; PARTIAL THROMBOPLASTIN TIME 34.4 SECONDS (21-34); PROTHROMBIN TIME 12.7 SECONDS (9.7-12.2)
[2018-06-27 10:53] LABS: ALB/GLOB RATIO 1.3 (1.0-2.1); ALBUMIN 4.1 g/dL (3.5-5.0); ALT/SGPT 36 U/L (21-72); AMYLASE 72 U/L (30-110); AST/SGOT 28 U/L (17-59); BLOOD UREA NITROGEN 14 mg/dL (9-20); CALCIUM 8.8 mg/dl (8.6-10.4); GFR NON-AFRICAN AMERICAN > 60; LIPASE 85 U/L (23-300)
[2018-06-27] MEDS ORDERED: Morphine 4 MG/ML VIAL ONE (11:33)
--- NOTE | 2018-06-27 11:41 | C.PDOC ---
History Of Present Illness 57-year-old male presents to the ED for evaluation of abdominal pain and bloody diarrhea for one month. Patient has a history of ulcerative colitis. He was evaluated by his GI doctor, Dr. Manzano, around one week ago, who prescribed him Prednisone and Mesalamine (oral and rectal). Patient states the medications have not helped him, and he is feeling worse. Patient denies fever, chills, chest pain, shortness of breath, and vomiting. Time Seen by Provider: 06/27/18 10:05 Chief Complaint (Nursing): GI Problem History Per: Patient History/Exam Limitations: no limitations Onset/Duration Of Symptoms: Other (one month ) Current Symptoms Are (Timing): Still Present Radiation Of Pain To:: None Quality Of Discomfort: "Pain" Associated Symptoms: Diarrhea. denies: Fever, Chills, Vomiting, Chest Pain Additional History Per: Patient Past Medical History Reviewed: Historical Data, Nursing Documentation, Vital Signs Vital Signs: Last Vital Signs Temp 97.7 F 06/27/18 09:59 Pulse 67 06/27/18 09:59 Resp 18 06/27/18 09:59 BP 118/79 06/27/18 09:59 Pulse Ox 97 06/27/18 09:59 Primary Care Provider: Homer Kaufman - Medical History PMH: Anxiety, Asthma, Fractures (right mid clavicle), Chronic Pain (chronic shoulder pain s/p work injury in 2009) Surgical History: Endoscopy, Hernia Repair (inguinal) - [facility] Procedures INJECT/INFUSE NEC (02/15/14) Family History: States: Unknown Family Hx - Social History Hx Tobacco Use: No Hx Alcohol Use: No Hx Substance Use: No - Immunization History Hx Tetanus Toxoid Vaccination: No Hx Influenza Vaccination: No Hx Pneumococcal Vaccination: No Review Of Systems Constitutional: Negative for: Fever, Chills Cardiovascular: Negative for: Chest Pain Respiratory: Negative for: Shortness of Breath Gastrointestinal: Positive for: Abdominal Pain, Hematochezia. Negative for: Vomiting Physical Exam - Physical Exam Appears: Non-toxic, Other (appears uncomfortable ) Skin: Normal Color, Warm, Dry, No Pale Head: Atraumatic, Normacephalic Eye(s): bilateral: Normal Inspection Oral Mucosa: Moist Neck: Supple Chest: Symmetrical, No Deformity, No Tenderness Cardiovascular: Rhythm Regular, No Murmur Respiratory: Normal Breath Sounds, No Rales, No Rhonchi, No Wheezing Gastrointestinal/Abdominal: Soft, Tenderness (mild, diffuse tenderness that is greatest in the left lower quadrant ), No Guarding, No Rebound Extremity: Normal ROM, Capillary Refill (less than 2 seconds ) Neurological/Psych: Oriented x3, Normal Speech, Normal Cognition ED Course And Treatment - Laboratory Results Result Diagrams: 06/27/18 10:31 06/27/18 10:31 Lab Results: PT 12.7 SECONDS (9.7-12.2) H 06/27/18 10:31 INR 1.2 06/27/18 10:31 APTT 34.4 SECONDS (21-34) H 06/27/18 10:31 Total Bilirubin 0.4 mg/dL (0.2-1.3) 06/27/18 10:31 AST 28 U/L (17-59) 06/27/18 10:31 ALT 36 U/L (21-72) 06/27/18 10:31 Alkaline Phosphatase 71 U/L (38-126) 06/27/18 10:31 Total Protein 7.1 g/dL (6.3-8.3) 06/27/18 10:31 Albumin 4.1 g/dL (3.5-5.0) 06/27/18 10:31 Globulin 3.1 gm/dL (2.2-3.9) 06/27/18 10:31 Albumin/Globulin Ratio 1.3 (1.0-2.1) 06/27/18 10:31 Amylase 72 U/L (30-110) 06/27/18 10:31 Lipase 85 U/L (23-300) 06/27/18 10:31 O2 Sat by Pulse Oximetry: 97 (on RA) Pulse Ox Interpretation: Normal Progress Note: Bloodwork ordered and reviewed. Will discussed case with GI before ordering a scan. Morphine IVP, Solu-Medrol IVP, and IV Fluids given. - Physician Consult Information Physician Contacted: Morgan Dunbar Outcome Of Conversation: Discussed patient with GI, recommends C diff test, continue prednisone 20mg and folloew up in office. Disposition Counseled Patient/Family Regarding: Studies Performed, Diagnosis, Need For Followup, Rx Given - Disposition Referrals: Jef Manzano MD [Staff Provider] - Disposition: HOME/ ROUTINE Disposition Time: 13:40 Condition: STABLE Additional Instructions: FOLLOW UP WITH YOUR GI PHYSICIAN ON WEDNESDAY USE MEDICATION (PREDNISONE 20MG) DAILY RETURN TO ER IF SYMPTOMS WORSEN Prescriptions: predniSONE [predniSONE Tab] 20 mg PO DAILY #7 tab Instructions: Ulcerative Colitis (DC) Forms: [employer] (Welsh) Print Language: [place] CITIZEN - Clinical Impression Clinical Impression: Ulcerative colitis, acute - Scribe Statement The provider has reviewed the documentation as recorded by the Scribe (Alicja Jernigan) Provider Attestation: All medical record entries made by the Scribe were at my direction and personally dictated by me. I have reviewed the chart and agree that the record accurately reflects my personal performance of the history, physical exam, medic al decision making, and the department course for this patient. I have also personally directed, reviewed, and agree with the discharge instructions and disposition.
[2018-06-27 13:53] VITALS: BP 124/76; PULSE 75; RESP 18; TEMP 97.9; O2SAT 96
== END 2018-06-27 13:53 | disposition home or self-care (01) ==
LOC: C.ER 09:47
DX: K51.90 Ulcerative colitis, unspecified, without complications (principal)
CPT/HCPCS: 80053; 82150; 83690; 85025; 85610; 85730; 96361; 96374; 96375; 99284; J2270; J2930; J7030

== ENCOUNTER 2018-07-01 04:55 | Inpatient (IN) | payer OTHER ==
[2018-07-01 04:55] VITALS: BMI 26.6
--- NOTE | 2018-07-01 05:07 | C.PDOC ---
History Of Present Illness Patient with Hx of ulcerative colitis was seen here a couple of days ago, had normal blood work, started on prednisone and mesalamine which he has been taking with no relief. He comes back today complaining of pain, and bloody diarrhea. Denies fever, chills, nausea, or vomiting. Time Seen by Provider: 07/01/18 05:03 Chief Complaint (Nursing): Abdominal Pain History Per: Patient History/Exam Limitations: no limitations Onset/Duration Of Symptoms: Days Current Symptoms Are (Timing): Still Present Severity: Moderate Pain Scale Rating Of: 4 Location Of Pain/Discomfort: Diffuse Quality Of Discomfort: Unable To Describe Associated Symptoms: denies: Fever, Chills, Nausea, Vomiting Exacerbating Factors: None Alleviating Factors: None Recent travel outside of the [place]: No Past Medical History Reviewed: Historical Data, Nursing Documentation, Vital Signs Vital Signs: Last Vital Signs Temp 97.6 F 07/01/18 05:01 Pulse 82 07/01/18 05:01 Resp 20 07/01/18 05:01 BP 134/85 07/01/18 05:01 Pulse Ox 98 07/01/18 05:01 Primary Care Provider: Homer Kaufman - Medical History PMH: Anxiety, Asthma, Fractures (right mid clavicle), Chronic Pain (chronic shoulder pain s/p work injury in 2009) Surgical History: Endoscopy, Hernia Repair (inguinal) - [facility] INJECT/INFUSE NEC (02/15/14) Family History: States: No Known Family Hx - Social History Hx Tobacco Use: No Hx Alcohol Use: No Hx Substance Use: No - Immunization History Hx Tetanus Toxoid Vaccination: No Hx Influenza Vaccination: No Hx Pneumococcal Vaccination: No Review Of Systems Constitutional: Negative for: Fever, Chills Cardiovascular: Negative for: Chest Pain, Palpitations Respiratory: Negative for: Cough, Shortness of Breath Gastrointestinal: Positive for: Abdominal Pain, Diarrhea, Rectal Pain. Negative for: Nausea, Vomiting Musculoskeletal: Negative for: Back Pain Skin: Negative for: Rash Neurological: Negative for: Weakness, Numbness Psych: Positive for: Anxiety Physical Exam - Physical Exam Appears: Non-toxic Skin: Warm, Dry Head: Normacephalic Oral Mucosa: Moist Chest: Symmetrical, No Tenderness Cardiovascular: Rhythm Regular Respiratory: No Rales, No Rhonchi, No Wheezing Gastrointestinal/Abdominal: Soft, Tenderness (Diffuse), No Guarding, No Rebound Rectal: Other (refused) Back: No CVA Tenderness Neurological/Psych: Oriented x3 ED Course And Treatment - Laboratory Results Result Diagrams: 07/01/18 05:34 07/01/18 05:34 O2 Sat by Pulse Oximetry: 98 (Room air) Pulse Ox Interpretation: Normal Progress Note: Blood work and urinalysis ordered. IV fluids, morphine, protonix, and zofran administered. spoke with dr chang. will come and see the pt. Ok to get ct scan after allergy protocol Disposition Discussed With .: Isabela Jernigan Comment: accepted the pt on his service and took over the care at 7 AM Doctor Will See Patient In The: Hospital Counseled Patient/Family Regarding: Studies Performed, Diagnosis - Disposition Disposition: HOSPITALIZED Disposition Time: 05:07 Condition: GUARDED Forms: [facility] (French) - Clinical Impression Clinical Impression: Abdominal colic, Ulcerative colitis, acute - Scribe Statement The provider has reviewed the documentation as recorded by the Scribdebby Green All medical record entries made by the Mariibdebby were at my direction and personally dictated by me. I have reviewed the chart and agree that the record accurately reflects my personal performance of the history, physical exam, medical decision making, and the department course for this patient. I have also personally directed, reviewed, and agree with the discharge instructions and disposition. Decision To Admit - Pt Status Changed To: Hospital Disposition Of: Inpatient - Admit Certification Admit to Inpatient:: After my assessment, the patient will require hospitalization for at least two midnights. This is because of the severity of symptoms shown, intensity of services needed, and/or the medical risk in this patient being treated as an outpatient. - InPatient: Physician Admission Certification:: After my assessment, the patient will require hospitalization for at least two midnights. This is because of the severity of symptoms shown, intensity of services needed, and/or the medical risk in this patient being treated as an outpatient. - . Bed Request Type: Regular Admitting Physician: Isabela Jernigan Patient Diagnosis: Abdominal colic, Ulcerative colitis, acute
[2018-07-01] MEDS ORDERED: Sodium Chloride 0.9% 1,000 ML IV ONE ×2 (05:09→06:59)
[2018-07-01] MEDS ORDERED: Morphine 4 MG/ML VIAL IV ONE (05:20)
[2018-07-01] MEDS ORDERED: Morphine 4 MG/ML VIAL ONE (05:25)
[2018-07-01 05:39] LABS: BASO # 0.1 K/uL (0.0-0.2); BASO % 0.9 % (0.0-2.0); EOS # 0.5 K/uL (0.0-0.7); EOS % 5.2 % (0.0-4.0); HEMOGLOBIN 15.2 g/dL (12.0-18.0); LYMPH # 1.8 K/uL (1.0-4.3); LYMPH % 17.9 % (20.0-40.0); MEAN CELL VOLUME 90.8 fL (80.0-94.0); MEAN CORPUSCULAR HEMOGLOBIN 31.8 pg (27.0-31.0); MEAN PLATELET VOLUME 7.9 fL (7.2-11.7); MONO % 10.2 % (0.0-10.0); NEUT # 6.6 K/uL (1.8-7.0); NEUT % 65.8 % (50.0-75.0); RBC 4.79 Mil/uL (4.40-5.90); RED CELL DISTRIBUTION WIDTH 12.9 % (11.5-14.5)
[2018-07-01 06:00] LABS: URINE BACTERIA RARE (<OCC); URINE BILIRUBIN NEGATIVE (NEGATIVE); URINE BLOOD 1+ (NEGATIVE); URINE CLARITY Clear (Clear); URINE COLOR Yellow (YELLOW); URINE GLUCOSE (UA) NORMAL (Normal); URINE LEUKOCYTE ESTERASE NEG Leu/uL (Negative); URINE PROTEIN NEGATIVE (NEGATIVE); URINE UROBILINOGEN NORMAL mg/dL (0.2-1.0)
[2018-07-01 06:08] LABS: ALB/GLOB RATIO 1.4 (1.0-2.1); ALT/SGPT 33 U/L (21-72); AST/SGOT 24 U/L (17-59); BLOOD UREA NITROGEN 19 mg/dL (9-20); CALCIUM 8.8 mg/dl (8.6-10.4); GFR NON-AFRICAN AMERICAN > 60; LIPASE 88 U/L (23-300)
[2018-07-01] MEDS ORDERED: Iohexol 240 (50 ml) PO ONE (07:16)
[2018-07-01] MEDS ORDERED: Iohexol 240 (50 ml) ONE (07:27)
[2018-07-01 07:43] LABS: INR 1.2; PARTIAL THROMBOPLASTIN TIME 33.4 SECONDS (21-34); PROTHROMBIN TIME 12.6 SECONDS (9.7-12.2)
--- NOTE | 2018-07-01 07:48 | CP.PCM.CON ---
History of Present Illness - History of Present Illness History of Present Illness: 58 yo male h/o Ulc colitis, now presents with RB, abdom pain, doarrhea. Has had worse symptoms over past month. ABd pain- mid and lower- sharp, rug scratcher,ps- has been worsening, Was recently put on prednisone. Pt has not bee able to get rowasa, and not been able to take 5 ASA meds. is present Review of Systems - Constitutional Constitutional: Anorexia, Fatigue, Weight Loss, Weakness - EENT Eyes: absent: Photophobia Nose/Mouth/Throat: absent: Throat Swelling, Neck Pain - Cardiovascular Cardiovascular: absent: Chest Pain, Dyspnea - Respiratory Respiratory: absent: Dyspnea, Wheezing - Gastrointestinal Gastrointestinal: Abdominal Pain, Bloating, Cramping, Diarrhea, Hematochezia, Nausea, Temesmus, Vomiting. absent: Constipation, Dysphagia, Hematemesis, Melena - Genitourinary Genitourinary: absent: Flank Pain, Hematuria - Musculoskeletal Musculoskeletal: absent: Muscle Cramps - Integumentary Integumentary: absent: Jaundice - Neurological Neurological: absent: Convulsions, Headaches Past Patient History - Infectious Disease Hx of Infectious Diseases: None - Past Medical History & Family History Past Medical History?: Yes - Past Social History Smoking Status: Never Smoked - CARDIAC Hx Cardiac Disorders: No - PULMONARY Hx Asthma: Yes - MUSCULOSKELETAL/RHEUMATOLOGICAL Hx Fractures: Yes (right mid clavicle) - GASTROINTESTINAL Hx Gastrointestinal Disorders: Yes Hx Colitis: Yes (ulcerative colitis) - GENITOURINARY/GYNECOLOGICAL Hx Genitourinary Disorders: Yes Hx Prostate Problems: Yes - PSYCHIATRIC Hx Anxiety: Yes Hx Substance Use: No - SURGICAL HISTORY Hx Musculoskeletal Surgery: Yes Other/Comment: Rt knee surgery when he was 8 yrs old - ANESTHESIA Hx Anesthesia: Yes Hx Anesthesia Reactions: No Meds Allergies/Adverse Reactions: Allergies Allergy/AdvReac Type Severity Reaction Status Date / Time shrimp Allergy Intermediate SHORTNESS Verified 03/08/18 07:06 OF BREATH iodine AdvReac RASH Verified 03/08/18 07:06 seafood Allergy SHORTNESS Uncoded 03/08/18 07:06 OF BREATH - Medications Medications: Current Medications Diphenhydramine HCl (Benadryl) 50 mg IVP STAT ERICKSON Sodium Chloride (Sodium Chloride 0.9%) 1,000 mls @ 150 mls/hr IV .[id number] ONE Stop: 07/01/18 13:38 Last Admin: 07/01/18 07:10 Dose: 150 mls/hr Mesalamine (Rowasa Enema) 4 gm RC ONCE ONE Stop: 07/01/18 08:01 Methylprednisolone (Solu-Medrol) 125 mg IVP STAT ERICKSON Stop: 07/01/18 10:41 Physical Exam - Constitutional Appears: Non-toxic - Eye Exam Eye Exam: EOMI - Respiratory Exam Respiratory Exam: Clear to Auscultation Bilateral - Cardiovascular Exam Cardiovascular Exam: RRR - GI/Abdominal Exam GI & Abdominal Exam: Normal Bowel Sounds, Soft, Tenderness. absent: Distended, Guarding, Mass, Rebound, Rigid - Neurological Exam Neurological exam: Alert, Oriented x3 - Psychiatric Exam Psychiatric exam: Anxious Results - Vital Signs Recent Vital Signs: Last Vital Signs Temp 97.9 F 07/01/18 06:46 Pulse 66 07/01/18 06:46 Resp 18 07/01/18 06:46 BP 117/72 07/01/18 06:46 Pulse Ox 98 07/01/18 06:58 - Labs Result Diagrams: 07/01/18 05:34 07/01/18 05:34 Labs: Laboratory Results - last 24 hr 07/01/18 07/01/18 07/01/18 05:34 05:34 05:55 WBC 10.0 RBC 4.79 Hgb 15.2 Hct 43.5 MCV 90.8 MCH 31.8 H MCHC 35.0 RDW 12.9 Plt Count 298 MPV 7.9 Neut % (Auto) 65.8 Lymph % (Auto) 17.9 L [place] % (Auto) 10.2 H Eos % (Auto) 5.2 H Baso % (Auto) 0.9 Neut # (Auto) 6.6 Lymph # (Auto) 1.8 [place] # (Auto) 1.0 H Eos # (Auto) 0.5 Baso # (Auto) 0.1 PT INR APTT Sodium 139 Potassium 4.0 Chloride 101 Carbon Dioxide 26 Anion Gap 16 BUN 19 Creatinine 1.0 Est GFR ( Amer) > 60 Est GFR (Non-Af Amer) > 60 Random Glucose 128 H D Calcium 8.8 Total Bilirubin 0.4 AST 24 ALT 33 Alkaline Phosphatase 74 Total Protein 6.7 Albumin 4.0 Globulin 2.7 Albumin/Globulin Ratio 1.4 Lipase 88 Urine Color Yellow Urine Clarity Clear Urine pH 6.0 Ur Specific [place] 1.019 Urine Protein Negative Urine Glucose (UA) Normal Urine Ketones Negative Urine Blood 1+ H Urine Nitrate Negative Urine Bilirubin Negative Urine Urobilinogen Normal Ur Leukocyte Esterase Neg Urine WBC (Auto) 2 Urine RBC (Auto) 2 Urine Bacteria Rare 07/01/18 07:23 WBC RBC Hgb Hct MCV MCH MCHC RDW Plt Count MPV Neut % (Auto) Lymph % (Auto) [place] % (Auto) Eos % (Auto) Baso % (Auto) Neut # (Auto) Lymph # (Auto) [place] # (Auto) Eos # (Auto) Baso # (Auto) PT 12.6 H INR 1.2 APTT 33.4 Sodium Potassium Chloride Carbon Dioxide Anion Gap BUN Creatinine Est GFR ( Amer) Est GFR (Non-Af Amer) Random Glucose Calcium Total Bilirubin AST ALT Alkaline Phosphatase Total Protein Albumin Globulin Albumin/Globulin Ratio Lipase Urine Color Urine Clarity Urine pH Ur Specific [place] Urine Protein Urine Glucose (UA) Urine Ketones Urine Blood Urine Nitrate Urine Bilirubin Urine Urobilinogen Ur Leukocyte Esterase Urine WBC (Auto) Urine RBC (Auto) Urine Bacteria Assessment & Plan (1) Abdominal pain Assessment and Plan: [facility] colitis exacerbaton. HAs not been taking/been able to take UC meds.'REc- IV steroids, mesalamine enema, check stool for infections, CT abdom/pelvis Status: Acute (2) Asthma Status: Acute (3) Diarrhea Status: Acute (4) Rectal bleeding Status: Acute (5) Ulcerative colitis Status: Acute
[2018-07-01] MEDS ORDERED: DiphenhydrAMINE 50 mg/ml Inj ONE (10:13)
[2018-07-01] MEDS ORDERED: DiphenhydrAMINE 50 mg/ml Inj IVP ONE (10:15)
[2018-07-01] MEDS ORDERED: Iodixanol 320 MG/ML 100 ML BOTTLE IV ONE (10:56)
--- NOTE | 2018-07-01 12:59 | CT ---
Date of service: 07/01/2018 PROCEDURE: CT Abdomen and Pelvis with contrast HISTORY: UC COMPARISON: 02/09/2017 TECHNIQUE: Contrast dose: 100 mL Visipaque 320 Radiation dose: Total exam DLP = 618.1 mGy-cm. This CT exam was performed using one or more of the following dose reduction techniques: Automated exposure control, adjustment of the mA and/or kV according to patient size, and/or use of iterative reconstruction technique. FINDINGS: LOWER THORAX: Unremarkable. LIVER: Normal size, contour and attenuation. No mass. No biliary dilatation. GALLBLADDER AND BILE DUCTS: Unremarkable. PANCREAS: Unremarkable. No gross lesion or ductal dilatation. SPLEEN: Unremarkable. ADRENALS: Unremarkable. No mass. KIDNEYS AND URETERS: Unremarkable. No hydronephrosis. No solid mass. VASCULATURE: Unremarkable. No aortic aneurysm. No aortic atherosclerotic calcification or mural plaque present. BOWEL: There is circumferential mural thickening of the colon from the splenic flexure to the rectum. There are no other abnormal bowel loops identified. There is no bowel obstruction. Findings are consistent with nonspecific colitis but likely reflect the patient's known ulcerative colitis. APPENDIX: Normal appendix. PERITONEUM: Unremarkable. No free fluid. No free air. LYMPH NODES: Unremarkable. No enlarged lymph nodes. BLADDER: Unremarkable. REPRODUCTIVE: Normal prostate BONES: No acute fracture. OTHER FINDINGS: None. IMPRESSION: Nonspecific colitis involving the splenic flexure to rectum, consistent with known ulcerative colitis. No additional abnormality identified.
[2018-07-01] MEDS ORDERED: Albuterol HFA 90 mcg/actuation (8 g) IH PRN (17:57)
[2018-07-01] MEDS ORDERED: Albuterol 0.083% Inhal Sol (2.5 mg/3 mL) UD IH PRN (17:57)
[2018-07-01] MEDS ORDERED: MESALAMINE PO SCH (18:00)
[2018-07-01] MEDS: Pantoprazole 40 mg EC Tab PO SCH (18:32)
[2018-07-01] MEDS: Dextrose 5%/0.45% NS 1,000 ML IV SCH (18:33)
[2018-07-01] MEDS: Ciprofloxacin 400mg/200ml D5W 400 MG/200 ML BAG IVPB SCH (20:59)
[2018-07-01] MEDS: metroNIDAZOLE IV 500 mg/100 ml 500 MG/100 ML BAG IVPB SCH (21:06)
--- NOTE | 2018-07-01 23:12 | CP.PCM.HP ---
Past Patient History - Infectious Disease Hx of Infectious Diseases: None - Past Medical History & Family History Past Medical History?: Yes - Past Social History Smoking Status: Former Smoker - CARDIAC Hx Cardiac Disorders: No - PULMONARY Hx Respiratory Disorders: Yes Hx Asthma: Yes - NEUROLOGICAL Hx Neurological Disorder: No - HEENT Hx HEENT Problems: No - RENAL Hx Chronic Kidney Disease: No - ENDOCRINE/METABOLIC Hx Endocrine Disorders: No - HEMATOLOGICAL/ONCOLOGICAL Hx Blood Disorders: No - INTEGUMENTARY Hx Dermatological Problems: No - MUSCULOSKELETAL/RHEUMATOLOGICAL Hx Falls: No - GASTROINTESTINAL Hx Gastrointestinal Disorders: Yes Hx Colitis: Yes (ulcerative colitis) - GENITOURINARY/GYNECOLOGICAL Hx Genitourinary Disorders: Yes Hx Prostate Problems: Yes - PSYCHIATRIC Hx Substance Use: No - SURGICAL HISTORY Hx Surgeries: Yes Hx Musculoskeletal Surgery: Yes Other/Comment: Rt knee surgery when he was 8 yrs old. LEFT LOWER LEG CYST 2 WEEKS AGO - ANESTHESIA Hx Anesthesia: Yes Hx Anesthesia Reactions: No Meds Allergies/Adverse Reactions: Allergies Allergy/AdvReac Type Severity Reaction Status Date / Time shrimp Allergy Intermediate SHORTNESS Verified 03/08/18 07:06 OF BREATH iodine AdvReac RASH Verified 03/08/18 07:06 seafood Allergy SHORTNESS Uncoded 03/08/18 07:06 OF BREATH Physical Exam - Constitutional Appears: Well - Head Exam Head Exam: ATRAUMATIC, NORMAL INSPECTION, NORMOCEPHALIC - Eye Exam Eye Exam: EOMI, Normal appearance, PERRL Pupil Exam: NORMAL ACCOMODATION, PERRL - ENT Exam ENT Exam: Mucous Membranes Moist, Normal Exam - Neck Exam Neck exam: Positive for: Normal Inspection - Respiratory Exam Respiratory Exam: Decreased Breath Sounds - Cardiovascular Exam Cardiovascular Exam: REGULAR RHYTHM, +S1, +S2 - GI/Abdominal Exam GI & Abdominal Exam: Diminished Bowel Sounds, Soft - Rectal Exam Rectal Exam: Deferred - Neurological Exam Neurological exam: Oriented x3 Results - Vital Signs Recent Vital Signs: Last Vital Signs Temp 97.7 F 07/01/18 16:53 Pulse 63 07/01/18 16:53 Resp 18 07/01/18 16:53 BP 108/71 07/01/18 16:53 Pulse Ox 95 07/01/18 16:53 - Labs Result Diagrams: 07/01/18 05:34 07/01/18 05:34 Labs: Laboratory Results - last 24 hr 07/01/18 07/01/18 07/01/18 05:34 05:34 05:55 WBC 10.0 RBC 4.79 Hgb 15.2 Hct 43.5 MCV 90.8 MCH 31.8 H MCHC 35.0 RDW 12.9 Plt Count 298 MPV 7.9 Neut % (Auto) 65.8 Lymph % (Auto) 17.9 L [place] % (Auto) 10.2 H Eos % (Auto) 5.2 H Baso % (Auto) 0.9 Neut # (Auto) 6.6 Lymph # (Auto) 1.8 [place] # (Auto) 1.0 H Eos # (Auto) 0.5 Baso # (Auto) 0.1 PT INR APTT Sodium 139 Potassium 4.0 Chloride 101 Carbon Dioxide 26 Anion Gap 16 BUN 19 Creatinine 1.0 Est GFR ( Amer) > 60 Est GFR (Non-Af Amer) > 60 Random Glucose 128 H D Calcium 8.8 Total Bilirubin 0.4 AST 24 ALT 33 Alkaline Phosphatase 74 Total Protein 6.7 Albumin 4.0 Globulin 2.7 Albumin/Globulin Ratio 1.4 Lipase 88 Urine Color Yellow Urine Clarity Clear Urine pH 6.0 Ur Specific [place] 1.019 Urine Protein Negative Urine Glucose (UA) Normal Urine Ketones Negative Urine Blood 1+ H Urine Nitrate Negative Urine Bilirubin Negative Urine Urobilinogen Normal Ur Leukocyte Esterase Neg Urine WBC (Auto) 2 Urine RBC (Auto) 2 Urine Bacteria Rare Blood Type Antibody Screen 07/01/18 07/01/18 07:23 07:23 WBC RBC Hgb Hct MCV MCH MCHC RDW Plt Count MPV Neut % (Auto) Lymph % (Auto) [place] % (Auto) Eos % (Auto) Baso % (Auto) Neut # (Auto) Lymph # (Auto) [place] # (Auto) Eos # (Auto) Baso # (Auto) PT 12.6 H INR 1.2 APTT 33.4 Sodium Potassium Chloride Carbon Dioxide Anion Gap BUN Creatinine Est GFR ( Amer) Est GFR (Non-Af Amer) Random Glucose Calcium Total Bilirubin AST ALT Alkaline Phosphatase Total Protein Albumin Globulin Albumin/Globulin Ratio Lipase Urine Color Urine Clarity Urine pH Ur Specific [place] Urine Protein Urine Glucose (UA) Urine Ketones Urine Blood Urine Nitrate Urine Bilirubin Urine Urobilinogen Ur Leukocyte Esterase Urine WBC (Auto) Urine RBC (Auto) Urine Bacteria Blood Type O NEGATIVE Antibody Screen Negative
[2018-07-02] MEDS: metroNIDAZOLE IV 500 mg/100 ml 500 MG/100 ML BAG IVPB SCH ×3 (05:09→21:08)
[2018-07-02] MEDS: Ciprofloxacin 400mg/200ml D5W 400 MG/200 ML BAG IVPB SCH ×2 (06:22→17:46)
[2018-07-02] MEDS: Dextrose 5%/0.45% NS 1,000 ML IV SCH ×3 (07:20→21:08)
--- NOTE | 2018-07-02 10:56 | CP.PCM.PN ---
Subjective - Date & Time of Evaluation Date of Evaluation: 07/02/18 Time of Evaluation: 10:53 - Subjective Subjective: Patient complains of bilateral lower abdominal pain. He had three loose, bloody bowel movements so far this morning. He denies having nausea and vomiting. Objective - Vital Signs/Intake and Output Vital Signs (last 24 hours): Temp Pulse Resp BP Pulse Ox 98.4 F 75 20 117/67 20 L 07/01/18 23:00 07/01/18 23:00 07/01/18 23:00 07/01/18 23:00 07/01/18 23:00 Intake and Output: 07/02/18 07/02/18 06:59 18:59 Intake Total 1540 Output Total 2 Balance 1538 - Medications Medications: Current Medications Albuterol Sulfate (Albuterol 0.083% Inhal Noemi (2.5 Mg/3 Ml) Ud) 2.5 mg IH RQ6 PRN PRN Reason: Shortness of Breath Dicyclomine HCl (Bentyl) 10 mg PO BID [facility] Last Admin: 07/01/18 22:24 Dose: 10 mg Home Med (Mesalamine [Apriso]) 1 tab PO BID [facility] Dextrose/Sodium Chloride (Dextrose 5%/0.45% Ns 1000 Ml) 1,000 mls @ 75 mls/hr IV .[id number] [facility] Last Admin: 07/01/18 18:33 Dose: 75 mls/hr Ciprofloxacin (Cipro 400mg/200ml Dsw) 400 mg in 200 mls @ 133 mls/hr IVPB Q12H [facility]; Protocol Last Admin: 07/02/18 06:22 Dose: 133 mls/hr Metronidazole (Flagyl) 500 mg in 100 mls @ 100 mls/hr IVPB Q8H [facility]; Protocol Last Admin: 07/02/18 05:09 Dose: 100 mls/hr Pantoprazole Sodium (Protonix Ec Tab) 40 mg PO DAILY [facility] Last Admin: 07/01/18 18:32 Dose: 40 mg Prednisone (Prednisone Tab) 20 mg PO DAILY [facility] - Labs Labs: 07/01/18 05:34 07/01/18 05:34 PT 12.6 SECONDS (9.7-12.2) H 07/01/18 07:23 INR 1.2 07/01/18 07:23 APTT 33.4 SECONDS (21-34) 07/01/18 07:23 - Constitutional Appears: No Acute Distress - Head Exam Head Exam: ATRAUMATIC, NORMOCEPHALIC - Eye Exam Eye Exam: EOMI, PERRL - Neck Exam Neck Exam: absent: Lymphadenopathy, Thyromegaly - Respiratory Exam Respiratory Exam: NORMAL BREATHING PATTERN. absent: Rales, Rhonchi, Wheezes - Cardiovascular Exam Cardiovascular Exam: REGULAR RHYTHM, +S1, +S2. absent: Gallop, Rubs, Murmur - GI/Abdominal Exam GI & Abdominal Exam: Distended, Soft, Normal Bowel Sounds. absent: Tenderness, Mass, Organomegaly - Rectal Exam Rectal Exam: Deferred - Extremities Exam Extremities Exam: absent: Calf Tenderness, Pedal Edema Assessment and Plan (1) Ulcerative colitis, acute Assessment & Plan: Patient continues to complain of abdominal pain and bloody diarrhea. Will daniella nue prednisone and add Rowasa enemas. Check stool cultures. Status: Chronic
[2018-07-02] MEDS: Pantoprazole 40 mg EC Tab PO SCH (11:37)
[2018-07-02 17:35] LABS: C DIFF TOXIN A B NEGATIVE (NEGATIVE)
[2018-07-02 19:35] LABS: FECAL LEUKOCYTES NEGATIVE (NEGATIVE)
--- NOTE | 2018-07-02 23:25 | CP.PCM.PN ---
Subjective - Date & Time of Evaluation Date of Evaluation: 07/02/18 - Subjective Subjective: no c/o vomiting, no diarrhea, no fever Objective - Vital Signs/Intake and Output Vital Signs (last 24 hours): Temp Pulse Resp BP Pulse Ox 97.5 F L 61 20 120/80 96 07/02/18 15:00 07/02/18 15:00 07/02/18 15:00 07/02/18 15:00 07/02/18 15:00 Intake and Output: 07/02/18 07/03/18 18:59 06:59 Intake Total 1000 Balance 1000 - Medications Medications: Current Medications Albuterol Sulfate (Albuterol 0.083% Inhal Noemi (2.5 Mg/3 Ml) Ud) 2.5 mg IH RQ6 PRN PRN Reason: Shortness of Breath Dicyclomine HCl (Bentyl) 10 mg PO BID [facility] Last Admin: 07/02/18 17:46 Dose: 10 mg Home Med (Mesalamine [Apriso]) 1 tab PO BID [facility] Dextrose/Sodium Chloride (Dextrose 5%/0.45% Ns 1000 Ml) 1,000 mls @ 75 mls/hr IV .[id number] [facility] Last Admin: 07/02/18 21:08 Dose: Not Given Ciprofloxacin (Cipro 400mg/200ml Dsw) 400 mg in 200 mls @ 133 mls/hr IVPB Q12H [facility]; Protocol Last Admin: 07/02/18 17:46 Dose: 133 mls/hr Metronidazole (Flagyl) 500 mg in 100 mls @ 100 mls/hr IVPB Q8H [facility]; Protocol Last Admin: 07/02/18 21:08 Dose: 100 mls/hr Mesalamine (Rowasa Enema) 4 gm RC HS [facility] Last Admin: 07/02/18 21:09 Dose: 4 gm Pantoprazole Sodium (Protonix Ec Tab) 40 mg PO DAILY [facility] Last Admin: 07/02/18 11:37 Dose: 40 mg Prednisone (Prednisone Tab) 20 mg PO DAILY [facility] Last Admin: 07/02/18 11:37 Dose: 20 mg - Labs Labs: 07/01/18 05:34 07/01/18 05:34 PT 12.6 SECONDS (9.7-12.2) H 07/01/18 07:23 INR 1.2 07/01/18 07:23 APTT 33.4 SECONDS (21-34) 07/01/18 07:23 - Constitutional Appears: Well - Head Exam Head Exam: ATRAUMATIC, NORMAL INSPECTION, NORMOCEPHALIC - Eye Exam Eye Exam: EOMI, Normal appearance, PERRL Pupil Exam: NORMAL ACCOMODATION, PERRL - ENT Exam ENT Exam: Mucous Membranes Moist, Normal Exam - Neck Exam Neck Exam: Full ROM, Normal Inspection. absent: Lymphadenopathy - Respiratory Exam Respiratory Exam: Decreased Breath Sounds - Cardiovascular Exam Cardiovascular Exam: REGULAR RHYTHM, +S1, +S2 - GI/Abdominal Exam GI & Abdominal Exam: Soft, Diminished Bowel Sounds - Rectal Exam Rectal Exam: Deferred - Neurological Exam Neurological Exam: Oriented x3 Assessment and Plan (1) Abdominal colic Status: Acute (2) Ulcerative colitis, acute Status: Chronic (3) Abdominal pain Status: Acute (4) Agitation requiring sedation protocol Status: Acute (5) Alcohol abuse Status: Acute (6) Alcohol abuse Status: Acute (7) Alcohol abuse with intoxication Status: Acute (8) Alcohol ingestion Status: Acute (9) Alcohol intoxication Status: Acute (10) Arm laceration Status: Acute (11) Asthma Status: Acute (12) Asthma exacerbation Status: Acute (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 (14) Bronchitis Status: Acute (15) Cocaine abuse Status: Acute (16) Cocaine abuse with intoxication Status: Acute (17) Colitis Status: Acute (18) Colitis Status: Acute (19) Colitis, acute Status: Acute (20) Contact dermatitis Status: Acute (21) Dehydration Status: Acute (22) Diarrhea Status: Acute (23) Influenza-like illness Status: Acute (24) Knee injury Status: Acute (25) Muscle strain Status: Acute (26) Poison atif dermatitis Status: Acute (27) Rectal bleeding Status: Acute (28) Removal of suture Status: Acute (29) Shoulder pain Status: Acute (30) Shoulder strain Status: Acute (31) Ulcerative colitis Status: Acute (32) Upper respiratory infection Status: Acute (33) Upper respiratory infection Status: Acute (34) Urinary hesitancy Status: Acute (35) Viral syndrome Status: Acute (36) IBS (irritable bowel syndrome) Status: Chronic - Assessment and Plan (Free Text) Plan: Glucose 128 Albuterol Ventolin Solu-Cortef Cipro Flagyl Rowasa Morphine Protonix Citrate of magnesia Moderate to high complexity of care. Plan of care discussed with patient &/or family & staff. Medications reviewed and reconciled. Labs reviewed. Vitals reviewed.
[2018-07-03] MEDS: Dextrose 5%/0.45% NS 1,000 ML IV SCH ×2 (04:36→09:25)
[2018-07-03] MEDS ORDERED: Morphine 4 MG/ML VIAL IV STA (05:33)
[2018-07-03] MEDS: metroNIDAZOLE IV 500 mg/100 ml 500 MG/100 ML BAG IVPB SCH ×3 (05:47→21:00)
[2018-07-03] MEDS: Ciprofloxacin 400mg/200ml D5W 400 MG/200 ML BAG IVPB SCH ×2 (05:48→17:37)
[2018-07-03] MEDS: Pantoprazole 40 mg EC Tab PO SCH (09:25)
--- NOTE | 2018-07-03 09:52 | CP.PCM.PN ---
Subjective - Date & Time of Evaluation Date of Evaluation: 07/03/18 Time of Evaluation: 09:48 - Subjective Subjective: Patient continues to complain of lower abdominal pain. He states that he had seven bloody bowel movements in the past 12 hours. He denies having nausea and vomiting. CRP was 20.1. C difficile toxin and stoo leukocytes were negative. Objective - Vital Signs/Intake and Output Vital Signs (last 24 hours): Temp Pulse Resp BP Pulse Ox 98.4 F 60 20 119/80 97 07/02/18 23:25 07/03/18 04:33 07/03/18 05:45 07/03/18 05:45 07/02/18 23:25 Intake and Output: 07/03/18 07/03/18 06:59 18:59 Intake Total 1675 Balance 1675 - Medications Medications: Current Medications Albuterol Sulfate (Albuterol 0.083% Inhal Noemi (2.5 Mg/3 Ml) Ud) 2.5 mg IH RQ6 PRN PRN Reason: Shortness of Breath Dicyclomine HCl (Bentyl) 10 mg PO BID [facility] Last Admin: 07/03/18 09:24 Dose: Not Given Home Med (Mesalamine [Apriso]) 1 tab PO BID [facility] Dextrose/Sodium Chloride (Dextrose 5%/0.45% Ns 1000 Ml) 1,000 mls @ 75 mls/hr IV .[id number] [facility] Last Admin: 07/03/18 09:25 Dose: Not Given Ciprofloxacin (Cipro 400mg/200ml Dsw) 400 mg in 200 mls @ 133 mls/hr IVPB Q12H [facility]; Protocol Last Admin: 07/03/18 05:48 Dose: 133 mls/hr Metronidazole (Flagyl) 500 mg in 100 mls @ 100 mls/hr IVPB Q8H [facility]; Protocol Last Admin: 07/03/18 05:47 Dose: 100 mls/hr Mesalamine (Rowasa Enema) 4 gm RC HS [facility] Last Admin: 07/02/18 21:09 Dose: 4 gm Morphine Sulfate (Morphine) 4 mg IV Q4 PRN PRN Reason: Pain, severe (8-10) Pantoprazole Sodium (Protonix Ec Tab) 40 mg PO DAILY [facility] Last Admin: 07/03/18 09:25 Dose: Not Given Prednisone (Prednisone Tab) 20 mg PO DAILY [facility] Last Admin: 07/03/18 09:25 Dose: Not Given - Labs Labs: 07/01/18 05:34 07/01/18 05:34 PT 12.6 SECONDS (9.7-12.2) H 07/01/18 07:23 INR 1.2 07/01/18 07:23 APTT 33.4 SECONDS (21-34) 07/01/18 07:23 - Constitutional Appears: No Acute Distress - Head Exam Head Exam: ATRAUMATIC, NORMOCEPHALIC - Eye Exam Eye Exam: EOMI, PERRL - Neck Exam Neck Exam: absent: Lymphadenopathy, Thyromegaly - Respiratory Exam Respiratory Exam: NORMAL BREATHING PATTERN. absent: Rales, Rhonchi, Wheezes - Cardiovascular Exam Cardiovascular Exam: REGULAR RHYTHM, +S1, +S2. absent: Gallop, Rubs, Murmur - GI/Abdominal Exam GI & Abdominal Exam: Soft, Normal Bowel Sounds. absent: Tenderness, Mass, Organomegaly - Rectal Exam Rectal Exam: Deferred - Extremities Exam Extremities Exam: absent: Calf Tenderness, Pedal Edema Assessment and Plan (1) Ulcerative colitis, acute Assessment & Plan: Patient continues to have frequent, bloody diarrhea. CRP is 20.1. Will plain on flex sig tomorrow. Status: Chronic
--- NOTE | 2018-07-03 11:13 | CP.PCM.PN ---
Subjective - Date & Time of Evaluation Date of Evaluation: 07/03/18 - Subjective Subjective: no c/o vomiting, no diarrhea, no fever Objective - Vital Signs/Intake and Output Vital Signs (last 24 hours): Temp Pulse Resp BP Pulse Ox 98.4 F 60 20 119/80 97 07/02/18 23:25 07/03/18 04:33 07/03/18 05:45 07/03/18 05:45 07/02/18 23:25 Intake and Output: 07/03/18 07/03/18 06:59 18:59 Intake Total 1675 Balance 1675 - Medications Medications: Current Medications Albuterol Sulfate (Albuterol 0.083% Inhal Noemi (2.5 Mg/3 Ml) Ud) 2.5 mg IH RQ6 PRN PRN Reason: Shortness of Breath Dicyclomine HCl (Bentyl) 10 mg PO BID [facility] Last Admin: 07/03/18 09:24 Dose: Not Given Hydrocortisone Sodium Succinate (Solu-Cortef) 100 mg IV Q8H [facility] Dextrose/Sodium Chloride (Dextrose 5%/0.45% Ns 1000 Ml) 1,000 mls @ 75 mls/hr IV .[id number] [facility] Last Admin: 07/03/18 09:25 Dose: Not Given Ciprofloxacin (Cipro 400mg/200ml Dsw) 400 mg in 200 mls @ 133 mls/hr IVPB Q12H [facility]; Protocol Last Admin: 07/03/18 05:48 Dose: 133 mls/hr Metronidazole (Flagyl) 500 mg in 100 mls @ 100 mls/hr IVPB Q8H [facility]; Protocol Last Admin: 07/03/18 05:47 Dose: 100 mls/hr Magnesium Citrate (Citrate Of Mag) 300 ml PO ONCE ONE Stop: 07/04/18 06:01 Mesalamine (Rowasa Enema) 4 gm RC HS [facility] Last Admin: 07/02/18 21:09 Dose: 4 gm Morphine Sulfate (Morphine) 4 mg IV Q4 PRN PRN Reason: Pain, severe (8-10) Pantoprazole Sodium (Protonix Ec Tab) 40 mg PO DAILY [facility] Last Admin: 07/03/18 09:25 Dose: Not Given - Labs Labs: 07/01/18 05:34 07/01/18 05:34 PT 12.6 SECONDS (9.7-12.2) H 07/01/18 07:23 INR 1.2 07/01/18 07:23 APTT 33.4 SECONDS (21-34) 07/01/18 07:23 - Constitutional Appears: Well - Head Exam Head Exam: ATRAUMATIC, NORMAL INSPECTION, NORMOCEPHALIC - Eye Exam Eye Exam: EOMI, Normal appearance, PERRL Pupil Exam: NORMAL ACCOMODATION, PERRL - ENT Exam ENT Exam: Mucous Membranes Moist, Normal Exam - Neck Exam Neck Exam: Full ROM, Normal Inspection. absent: Lymphadenopathy - Respiratory Exam Respiratory Exam: Decreased Breath Sounds - Cardiovascular Exam Cardiovascular Exam: REGULAR RHYTHM, +S1, +S2 - GI/Abdominal Exam GI & Abdominal Exam: Soft, Diminished Bowel Sounds - Rectal Exam Rectal Exam: Deferred - Neurological Exam Neurological Exam: Oriented x3 Assessment and Plan (1) Abdominal colic Status: Acute (2) Ulcerative colitis, acute Status: Chronic (3) Abdominal pain Status: Acute (4) Agitation requiring sedation protocol Status: Acute (5) Alcohol abuse Status: Acute (6) Alcohol abuse Status: Acute (7) Alcohol abuse with intoxication Status: Acute (8) Alcohol ingestion Status: Acute (9) Alcohol intoxication Status: Acute (10) Arm laceration Status: Acute (11) Asthma Status: Acute (12) Asthma exacerbation Status: Acute (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 (14) Bronchitis Status: Acute (15) Cocaine abuse Status: Acute (16) Cocaine abuse with intoxication Status: Acute (17) Colitis Status: Acute (18) Colitis Status: Acute (19) Colitis, acute Status: Acute (20) Contact dermatitis Status: Acute (21) Dehydration Status: Acute (22) Diarrhea Status: Acute (23) Influenza-like illness Status: Acute (24) Knee injury Status: Acute (25) Muscle strain Status: Acute (26) Poison atif dermatitis Status: Acute (27) Rectal bleeding Status: Acute (28) Removal of suture Status: Acute (29) Shoulder pain Status: Acute (30) Shoulder strain Status: Acute (31) Ulcerative colitis Status: Acute (32) Upper respiratory infection Status: Acute (33) Upper respiratory infection Status: Acute (34) Urinary hesitancy Status: Acute (35) Viral syndrome Status: Acute (36) IBS (irritable bowel syndrome) Status: Chronic - Assessment and Plan (Free Text) Plan: Glucose 128 Albuterol Ventolin Solu-Cortef Cipro Flagyl Rowasa Morphine Protonix Citrate of magnesia Moderate to high complexity of care. Plan of care discussed with patient &/or family & staff. Medications reviewed and reconciled. Labs reviewed. Vitals reviewed.
[2018-07-03] MEDS: Omega-3-Acid Ethyl Esters 1 GM Cap PO SCH (17:36)
[2018-07-03] MEDS: Morphine 4 MG/ML VIAL IV PRN (23:40)
[2018-07-04] MEDS: Dextrose 5%/0.45% NS 1,000 ML IV SCH ×2 (00:55→13:43)
[2018-07-04] MEDS: metroNIDAZOLE IV 500 mg/100 ml 500 MG/100 ML BAG IVPB SCH ×2 (05:30→13:43)
[2018-07-04] MEDS ORDERED: Magnesium Citrate Oral SOL (300 ml) PO ONE (06:00)
[2018-07-04] MEDS: Ciprofloxacin 400mg/200ml D5W 400 MG/200 ML BAG IVPB SCH (06:41)
[2018-07-04 07:56] LABS: BASO % 0.2 % (0.0-2.0); EOS % 0.1 % (0.0-4.0); HEMOGLOBIN 16.7 g/dL (12.0-18.0); LYMPH % 10.4 % (20.0-40.0); MEAN CELL VOLUME 90.7 fL (80.0-94.0); MEAN CORPUSCULAR HEMOGLOBIN 32.4 pg (27.0-31.0); MEAN CORPUSCULAR HGB CONC 35.7 g/dL (33.0-37.0); MEAN PLATELET VOLUME 7.9 fL (7.2-11.7); MONO % 9.9 % (0.0-10.0); NEUT # 7.9 K/uL (1.8-7.0); NEUT % 79.4 % (50.0-75.0); NRBC % 0.2 % (0.0-2.0); RBC 5.16 Mil/uL (4.40-5.90); RED CELL DISTRIBUTION WIDTH 13.1 % (11.5-14.5); WHITE BLOOD COUNT 9.9 K/uL (4.8-10.8)
[2018-07-04 08:02] LABS: ALB/GLOB RATIO 1.5 (1.0-2.1); ALBUMIN 4.3 g/dL (3.5-5.0); ALT/SGPT 22 U/L (21-72); AST/SGOT 23 U/L (17-59); BLOOD UREA NITROGEN 8 mg/dL (9-20); CALCIUM 8.9 mg/dl (8.6-10.4); GFR NON-AFRICAN AMERICAN > 60
[2018-07-04] MEDS: Pantoprazole 40 mg EC Tab PO SCH (10:27)
[2018-07-04] MEDS: Omega-3-Acid Ethyl Esters 1 GM Cap PO SCH ×2 (10:27→17:11)
[2018-07-04] MEDS: Morphine 4 MG/ML VIAL IV PRN (11:24)
--- NOTE | 2018-07-04 13:33 | CP.PCM.PN ---
Subjective - Date & Time of Evaluation Date of Evaluation: 07/04/18 Time of Evaluation: 13:31 - Subjective Subjective: PGY-2 Progress Note 58 year old male with a past medical history of ulcerative colitis and asthma presents to the emergency department for abdominal pain and bloody stools for the past month or so. Patient states the pain is located in the lower left and right quadrant of the abdomen with no radiation. Patient rates the pain a 6/10 in severity. Patient states the food hasn't doesn't affect the abdominal pain and comes and goes throughout the day. Patient denies any recent dietary changes or travel. Patient recently went to GI doctor Dr. Manzano who prescribed him prednisone and mesalamine. Patient denies any improvement in symptoms since starting the medicine and stopped taking them as a result. Patient denies any fevers, chills, headaches, chest pain, syncopal episodes, or any other complaints. PMHx: asthma and UC. Dx w/ UC 2 yrs ago, was hospitalized. Dr. Manzano is his GI. Saw him last week. Hasn't taken any meds for it for a while. [place] in 2 yrs rec'd. PSHx: inguinal hernia repair FHx: mother of colon CA in her 60s, father in the 80s of unk causes SocHx: Lives with daughter, Iesha, and her children. Former smoker 1/2 ppx in his teens for a few years. Denies EtOH and drug use. Meds: None for UC. albutuerol PRN and nebs PRN. All: seafood Objective - Vital Signs/Intake and Output Vital Signs (last 24 hours): Temp Pulse Resp BP Pulse Ox 97.5 F L 71 20 133/92 H 96 07/04/18 13:30 07/04/18 13:30 07/04/18 13:30 07/04/18 13:30 07/04/18 13:30 Intake and Output: 07/04/18 07/04/18 06:59 18:59 Intake Total 1000 Balance 1000 - Medications Medications: Current Medications Albuterol Sulfate (Albuterol 0.083% Inhal Noemi (2.5 Mg/3 Ml) Ud) 2.5 mg IH RQ6 PRN PRN Reason: Shortness of Breath Dicyclomine HCl (Bentyl) 10 mg PO BID [facility] Last Admin: 07/04/18 10:27 Dose: Not Given Hydrocortisone Sodium Succinate (Solu-Cortef) 100 mg IV Q8H [facility] Last Admin: 07/04/18 10:24 Dose: 100 mg Dextrose/Sodium Chloride (Dextrose 5%/0.45% Ns 1000 Ml) 1,000 mls @ 75 mls/hr IV .[id number] [facility] Last Admin: 07/04/18 00:55 Dose: 75 mls/hr Ciprofloxacin (Cipro 400mg/200ml Dsw) 400 mg in 200 mls @ 133 mls/hr IVPB Q12H [facility]; Protocol Last Admin: 07/04/18 06:41 Dose: 133 mls/hr Metronidazole (Flagyl) 500 mg in 100 mls @ 100 mls/hr IVPB Q8H [facility]; Protocol Last Admin: 07/04/18 05:30 Dose: 100 mls/hr Mesalamine (Rowasa Enema) 4 gm RC HS [facility] Last Admin: 07/03/18 21:00 Dose: 4 gm Morphine Sulfate (Morphine) 4 mg IV Q4 PRN PRN Reason: Pain, severe (8-10) Last Admin: 07/04/18 11:24 Dose: 4 mg [id number] Ethyl Esters (Lovaza) 1 gm PO BID [facility] Last Admin: 07/04/18 10:27 Dose: Not Given Pantoprazole Sodium (Protonix Ec Tab) 40 mg PO DAILY [facility] Last Admin: 07/04/18 10:27 Dose: Not Given - Labs Labs: 07/04/18 07:39 07/04/18 07:39 PT 12.6 SECONDS (9.7-12.2) H 07/01/18 07:23 INR 1.2 07/01/18 07:23 APTT 33.4 SECONDS (21-34) 07/01/18 07:23 - Head Exam Head Exam: ATRAUMATIC, NORMAL INSPECTION - Eye Exam Eye Exam: EOMI, Normal appearance, PERRL Pupil Exam: NORMAL ACCOMODATION, PERRL. absent: Irregular, Unequal - ENT Exam ENT Exam: Mucous Membranes Moist - Neck Exam Neck Exam: Normal Inspection. absent: Lymphadenopathy, Thyromegaly - Respiratory Exam Respiratory Exam: Clear to Ausculation Bilateral, NORMAL BREATHING PATTERN. absent: Prolonged Expiratory Phase, Respiratory Distress - Cardiovascular Exam Cardiovascular Exam: REGULAR RHYTHM, +S1 - GI/Abdominal Exam GI & Abdominal Exam: Soft, Tenderness (lower left and right quadrant), Normal Bowel Sounds. absent: Rigid, Hyperactive Bowel Sounds - Back Exam Back Exam: NORMAL INSPECTION. absent: CVA tenderness (R), paraspinal tenderness - Neurological Exam Neurological Exam: Alert, Awake, CN II-XII Intact, Oriented x3 - Psychiatric Exam Psychiatric exam: Normal Affect, Normal Mood. absent: Depressed - Skin Skin Exam: Dry, Intact, Normal Color. absent: Diaphoretic, Pallor Assessment and Plan - Assessment and Plan (Free Text) Assessment: 58 year old male with a past medical history of ulcerative colitis and asthma presents to the emergency department for abdominal pain and bloody stools for the past month or so. Plan: 1. Ulceriatve colitis Recent visit to GI Dr. Manzano and prescribed Prenisone and Mesalamine. Patient d/c both since symptoms became worse Abdomen pelvis ct: Nonspecific colitis involving the splenic flexure to rectum, consistent with known ulcerative colitis. No additional abnormality identified. GI Dr. Manzano consulted--> Help appreciated :Flexible sigmoidoscopy tentative today Medications: Mesalamine 4gm RC HS Bentyl 10mg PO BID Ciprofloxacin 400mg IVPB Q12 [facility] Flagyl 500mg IVPB Q8 Hydrocortisone 100mg IV Q8 2. hx of Asthma -Albuterol 2.5mg IH RQ6 PRN PPX -Protonix Dispo: Patient expected to have flexible sigmoidoscopy today. Plan discussed with Attending Dr. Kianna Ji, PGY-2
[2018-07-04] MEDS ORDERED: Lidocaine Hydrochloride 5 ML INJ ONE (14:12)
[2018-07-04] MEDS ORDERED: Propofol 10 mg/ml Inj (20 ML) ONE (14:12)
--- NOTE | 2018-07-04 14:29 | CP.PCM.PN ---
Subjective - Date & Time of Evaluation Date of Evaluation: 07/04/18 Time of Evaluation: 14:27 - Subjective Subjective: Colonoscopy: Moderate Ulcerative Colitis from rectum to Splenic Flexure Rec: Check biopsies, advance diet. Change to oral Prednisone and taper over next 6 weeks as outpatient. start Oral + topical Mesalamine Objective - Vital Signs/Intake and Output Vital Signs (last 24 hours): Temp Pulse Resp BP Pulse Ox 97.5 F L 75 20 142/92 H 100 07/04/18 14:10 07/04/18 14:10 07/04/18 14:10 07/04/18 14:10 07/04/18 14:10 Intake and Output: 07/04/18 07/04/18 06:59 18:59 Intake Total 1000 0 Balance 1000 0 - Medications Medications: Current Medications Albuterol Sulfate (Albuterol 0.083% Inhal Noemi (2.5 Mg/3 Ml) Ud) 2.5 mg IH RQ6 PRN PRN Reason: Shortness of Breath Dicyclomine HCl (Bentyl) 10 mg PO BID [facility] Last Admin: 07/04/18 10:27 Dose: Not Given Hydrocortisone Sodium Succinate (Solu-Cortef) 100 mg IV Q8H [facility] Last Admin: 07/04/18 10:24 Dose: 100 mg Dextrose/Sodium Chloride (Dextrose 5%/0.45% Ns 1000 Ml) 1,000 mls @ 75 mls/hr IV .[id number] [facility] Last Admin: 07/04/18 13:43 Dose: Not Given Ciprofloxacin (Cipro 400mg/200ml Dsw) 400 mg in 200 mls @ 133 mls/hr IVPB Q12H [facility]; Protocol Last Admin: 07/04/18 06:41 Dose: 133 mls/hr Metronidazole (Flagyl) 500 mg in 100 mls @ 100 mls/hr IVPB Q8H [facility]; Protocol Last Admin: 07/04/18 13:43 Dose: Not Given Mesalamine (Rowasa Enema) 4 gm RC HS [facility] Last Admin: 07/03/18 21:00 Dose: 4 gm Morphine Sulfate (Morphine) 4 mg IV Q4 PRN PRN Reason: Pain, severe (8-10) Last Admin: 07/04/18 11:24 Dose: 4 mg Xyiwz-1-Kucc Ethyl Esters (Lovaza) 1 gm PO BID [facility] Last Admin: 07/04/18 10:27 Dose: Not Given Pantoprazole Sodium (Protonix Ec Tab) 40 mg PO DAILY [facility] Last Admin: 07/04/18 10:27 Dose: Not Given - Labs Labs: 07/04/18 07:39 07/04/18 07:39 PT 12.6 SECONDS (9.7-12.2) H 07/01/18 07:23 INR 1.2 07/01/18 07:23 APTT 33.4 SECONDS (21-34) 07/01/18 07:23
--- NOTE | 2018-07-04 20:53 | CP.PCM.PN ---
Subjective - Date & Time of Evaluation Date of Evaluation: 07/04/18 Time of Evaluation: 07:15 - Subjective Subjective: patient examined today c/o nausea no vomiting no dizziness no fever no diarrhea abd pain present no shortness of breath 58 year old male with a past medical history of ulcerative colitis and asthma presents to the emergency department for abdominal pain and bloody stools for the past month or so. Patient states the pain is located in the lower left and right quadrant of the abdomen with no radiation. Patient rates the pain a 6/10 in severity. Patient states the food hasn't doesn't affect the abdominal pain and comes and goes throughout the day. Patient denies any recent dietary changes or travel. Patient recently went to GI doctor Dr. Manzano who prescribed him prednisone and mesalamine. Patient denies any improvement in symptoms since starting the medicine and stopped taking them as a result. Patient denies any fevers, chills, headaches, chest pain, syncopal episodes, or any other complaints. PMHx: asthma and UC. Dx w/ UC 2 yrs ago, was hospitalized. Dr. Manzano is his GI. Saw him last week. Hasn't taken any meds for it for a while. [place] in 2 yrs rec'd. PSHx: inguinal hernia repair FHx: mother of colon CA in her 60s, father in the 80s of unk causes SocHx: Lives with daughter, Iesha, and her children. Former smoker 1/2 ppx in his teens for a few years. Denies EtOH and drug use. Meds: None for UC. albutuerol PRN and nebs PRN. All: seafood Objective - Vital Signs/Intake and Output Vital Signs (last 24 hours): Temp Pulse Resp BP Pulse Ox 98.1 F 67 13 124/82 97 07/04/18 15:00 07/04/18 15:03 07/04/18 15:03 07/04/18 15:03 07/04/18 15:03 Intake and Output: 07/04/18 07/05/18 18:59 06:59 Intake Total 500 Balance 500 - Medications Medications: Current Medications Albuterol Sulfate (Albuterol 0.083% Inhal Noemi (2.5 Mg/3 Ml) Ud) 2.5 mg IH RQ6 PRN PRN Reason: Shortness of Breath Dicyclomine HCl (Bentyl) 10 mg PO BID [facility] Last Admin: 07/04/18 17:11 Dose: Not Given Mesalamine (Rowasa Enema) 4 gm RC HS [facility] Last Admin: 07/03/18 21:00 Dose: 4 gm Mesalamine (Delzicol Dr) 800 mg PO TID [facility] Last Admin: 07/04/18 17:16 Dose: 800 mg Morphine Sulfate (Morphine) 4 mg IV Q4 PRN PRN Reason: Pain, severe (8-10) Last Admin: 07/04/18 11:24 Dose: 4 mg [id number]-7-[id number] Ethyl Esters (Lovaza) 1 gm PO BID [facility] Last Admin: 07/04/18 17:11 Dose: Not Given Pantoprazole Sodium (Protonix Ec Tab) 40 mg PO DAILY [facility] Last Admin: 07/04/18 10:27 Dose: Not Given Prednisone (Prednisone Tab) 40 mg PO DAILY [facility] - Labs Labs: 07/04/18 07:39 07/04/18 07:39 PT 12.6 SECONDS (9.7-12.2) H 07/01/18 07:23 INR 1.2 07/01/18 07:23 APTT 33.4 SECONDS (21-34) 07/01/18 07:23 - Constitutional Appears: Well - Head Exam Head Exam: ATRAUMATIC, NORMAL INSPECTION, NORMOCEPHALIC - Eye Exam Eye Exam: EOMI, Normal appearance, PERRL Pupil Exam: NORMAL ACCOMODATION, PERRL - ENT Exam ENT Exam: Mucous Membranes Moist, Normal Exam - Neck Exam Neck Exam: Full ROM, Normal Inspection. absent: Lymphadenopathy - Respiratory Exam Respiratory Exam: Decreased Breath Sounds - Cardiovascular Exam Cardiovascular Exam: REGULAR RHYTHM, +S1, +S2 - GI/Abdominal Exam GI & Abdominal Exam: Soft, Diminished Bowel Sounds - Rectal Exam Rectal Exam: Deferred - Neurological Exam Neurological Exam: Oriented x3 Assessment and Plan (1) Abdominal colic Status: Acute (2) Ulcerative colitis, acute Status: Chronic (3) Abdominal pain Status: Acute (4) Agitation requiring sedation protocol Status: Acute (5) Alcohol abuse Status: Acute (6) Alcohol abuse Status: Acute (7) Alcohol abuse with intoxication Status: Acute (8) Alcohol ingestion Status: Acute (9) Alcohol intoxication Status: Acute (10) Arm laceration Status: Acute (11) Asthma Status: Acute (12) Asthma exacerbation Status: Acute (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 (14) Bronchitis Status: Acute (15) Cocaine abuse Status: Acute (16) Cocaine abuse with intoxication Status: Acute (17) Colitis Status: Acute (18) Colitis Status: Acute (19) Colitis, acute Status: Acute (20) Contact dermatitis Status: Acute (21) Dehydration Status: Acute (22) Diarrhea Status: Acute (23) Influenza-like illness Status: Acute (24) Knee injury Status: Acute (25) Muscle strain Status: Acute (26) Poison atif dermatitis Status: Acute (27) Rectal bleeding Status: Acute (28) Removal of suture Status: Acute (29) Shoulder pain Status: Acute (30) Shoulder strain Status: Acute (31) Ulcerative colitis Status: Acute (32) Upper respiratory infection Status: Acute (33) Upper respiratory infection Status: Acute (34) Urinary hesitancy Status: Acute (35) Viral syndrome Status: Acute (36) IBS (irritable bowel syndrome) Status: Chronic - Assessment and Plan (Free Text) Plan: medications reviewed labs reviewed vitals reviewed Albuterol Ventolin Solu-Cortef Cipro Flagyl Rowasa Morphine Protonix Citrate of magnesia plan discussed with patient moderate complexity of care 58 year old male with a past medical history of ulcerative colitis and asthma presents to the emergency department for abdominal pain and bloody stools for the past month or so. 1. Ulceriatve colitis Recent visit to GI Dr. Manzano and prescribed Prenisone and Mesalamine. Patient d/c both since symptoms became worse Abdomen pelvis ct: Nonspecific colitis involving the splenic flexure to rectum, consistent with known ulcerative colitis. No additional abnormality identified. GI Dr. Manzano consulted--> Help appreciated :Flexible sigmoidoscopy tentative today Medications: Mesalamine 4gm RC HS Bentyl 10mg PO BID Ciprofloxacin 400mg IVPB Q12 [facility] Flagyl 500mg IVPB Q8 Hydrocortisone 100mg IV Q8 2. hx of Asthma -Albuterol 2.5mg IH RQ6 PRN PPX -Protonix Dispo: Patient expected to have flexible sigmoidoscopy today.
[2018-07-05 07:26] LABS: BASO # 0.1 K/uL (0.0-0.2); BASO % 0.7 % (0.0-2.0); EOS # 0.2 K/uL (0.0-0.7); EOS % 2.5 % (0.0-4.0); HEMOGLOBIN 14.9 g/dL (12.0-18.0); LYMPH # 2.4 K/uL (1.0-4.3); MEAN CELL VOLUME 92.6 fL (80.0-94.0); MEAN CORPUSCULAR HEMOGLOBIN 31.8 pg (27.0-31.0); MEAN CORPUSCULAR HGB CONC 34.4 g/dL (33.0-37.0); MEAN PLATELET VOLUME 7.9 fL (7.2-11.7); MONO # 1.1 K/uL (0.0-0.8); MONO % 13.6 % (0.0-10.0); NEUT # 4.3 K/uL (1.8-7.0); NEUT % 53.2 % (50.0-75.0); RBC 4.69 Mil/uL (4.40-5.90); WHITE BLOOD COUNT 8.1 K/uL (4.8-10.8)
[2018-07-05 07:32] LABS: ALB/GLOB RATIO 1.5 (1.0-2.1); ALBUMIN 3.4 g/dL (3.5-5.0); ALT/SGPT 27 U/L (21-72); AST/SGOT 20 U/L (17-59); BLOOD UREA NITROGEN 12 mg/dL (9-20); CALCIUM 7.9 mg/dl (8.6-10.4); GFR NON-AFRICAN AMERICAN > 60
[2018-07-05] MEDS: Omega-3-Acid Ethyl Esters 1 GM Cap PO SCH ×2 (09:57→18:22)
[2018-07-05] MEDS: Pantoprazole 40 mg EC Tab PO SCH (09:57)
--- NOTE | 2018-07-05 10:52 | CP.PCM.PN ---
Subjective - Date & Time of Evaluation Date of Evaluation: 07/05/18 Time of Evaluation: 10:51 - Subjective Subjective: PGY2 Progress Note Dr. Kianna Jernigan Service Patient seen and examined at bedside. Per nursing no acute events occurred overnight. Patient still reporting lower abdominal pain and some blood in his stool. Patient denies any fevers, chills, headaches, nausea, or any other complaints. Objective - Vital Signs/Intake and Output Vital Signs (last 24 hours): Temp Pulse Resp BP Pulse Ox 97.5 F L 76 20 133/85 97 07/04/18 23:15 07/04/18 23:15 07/04/18 23:15 07/04/18 23:15 07/04/18 23:15 Intake and Output: 07/05/18 07/05/18 06:59 18:59 Intake Total 950 600 Balance 950 600 - Medications Medications: Current Medications Albuterol Sulfate (Albuterol 0.083% Inhal Noemi (2.5 Mg/3 Ml) Ud) 2.5 mg IH RQ6 PRN PRN Reason: Shortness of Breath Dicyclomine HCl (Bentyl) 10 mg PO BID [facility] Last Admin: 07/05/18 09:57 Dose: 10 mg Mesalamine (Rowasa Enema) 4 gm RC HS [facility] Last Admin: 07/04/18 21:01 Dose: 4 gm Mesalamine (Delzicol Dr) 800 mg PO TID [facility] Last Admin: 07/05/18 09:57 Dose: 800 mg Morphine Sulfate (Morphine) 4 mg IV Q4 PRN PRN Reason: Pain, severe (8-10) Last Admin: 07/04/18 11:24 Dose: 4 mg [id number] Ethyl Esters (Lovaza) 1 gm PO BID [facility] Last Admin: 07/05/18 09:57 Dose: 1 gm Pantoprazole Sodium (Protonix Ec Tab) 40 mg PO DAILY [facility] Last Admin: 07/05/18 09:57 Dose: 40 mg Prednisone (Prednisone Tab) 40 mg PO DAILY [facility] Last Admin: 07/05/18 09:57 Dose: 40 mg - Labs Labs: 07/05/18 06:46 07/05/18 06:46 PT 12.6 SECONDS (9.7-12.2) H 07/01/18 07:23 INR 1.2 07/01/18 07:23 APTT 33.4 SECONDS (21-34) 07/01/18 07:23 - Head Exam Head Exam: ATRAUMATIC, NORMAL INSPECTION - Eye Exam Eye Exam: EOMI, Normal appearance, PERRL Pupil Exam: NORMAL ACCOMODATION - ENT Exam ENT Exam: Mucous Membranes Moist, Normal Oropharynx - Respiratory Exam Respiratory Exam: Clear to Ausculation Bilateral, NORMAL BREATHING PATTERN. absent: Prolonged Expiratory Phase, Respiratory Distress - Cardiovascular Exam Cardiovascular Exam: REGULAR RHYTHM, +S1, +S2 - GI/Abdominal Exam GI & Abdominal Exam: Soft, Normal Bowel Sounds. absent: Hyperactive Bowel Sounds - Extremities Exam Extremities Exam: Full ROM, Normal Inspection. absent: Pedal Edema - Back Exam Back Exam: NORMAL INSPECTION. absent: paraspinal tenderness - Neurological Exam Neurological Exam: Awake, CN II-XII Intact, Oriented x3 - Psychiatric Exam Psychiatric exam: Normal Affect, Normal Mood - Skin Skin Exam: Dry, Intact Assessment and Plan - Assessment and Plan (Free Text) Plan: 58 year old male with a past medical history of ulcerative colitis and asthma presents to the emergency department for abdominal pain and bloody stools for the past month or so. Plan: 1. Ulceriatve colitis Recent visit to GI Dr. Manzano and prescribed Prenisone and Mesalamine. Patient d/c both since symptoms became worse Abdomen pelvis ct: Nonspecific colitis involving the splenic flexure to rectum, consistent with known ulcerative colitis. No additional abnormality identified. GI Dr. Manzano consulted--> Help appreciated Flexible sigmoidoscopy :Left sided colitis (See report for full results) Medications: Mesalamine 4gm RC HS Bentyl 10mg PO BID Ciprofloxacin 400mg IVPB Q12 [facility] (Discontinued) Flagyl 500mg IVPB Q8(Discontinued) Hydrocortisone 100mg IV Q8 [place] 800mg PO TIC Prednisone 40mg PO DAILY 2. hx of Asthma -Albuterol 2.5mg IH RQ6 PRN PPX -Protonix Dispo: Likely to be discharged tomorrow, pending clear stools. Plan discussed with Attending Dr. Kianna Ji, PGY-2
--- NOTE | 2018-07-05 16:50 | CP.PCM.PN ---
Subjective - Date & Time of Evaluation Date of Evaluation: 07/05/18 - Subjective Subjective: patient examined today no nausea no vomiting no diarrhea no fever no dizziness no shortness of breath Objective - Vital Signs/Intake and Output Vital Signs (last 24 hours): Temp Pulse Resp BP Pulse Ox 98.1 F 70 18 109/73 97 07/05/18 15:47 07/05/18 15:47 07/05/18 15:47 07/05/18 15:47 07/05/18 15:47 Intake and Output: 07/05/18 07/05/18 06:59 18:59 Intake Total 950 600 Balance 950 600 - Medications Medications: Current Medications Albuterol Sulfate (Albuterol 0.083% Inhal Noemi (2.5 Mg/3 Ml) Ud) 2.5 mg IH RQ6 P RN PRN Reason: Shortness of Breath Dicyclomine HCl (Bentyl) 10 mg PO BID [facility] Last Admin: 07/05/18 09:57 Dose: 10 mg Mesalamine (Rowasa Enema) 4 gm RC HS [facility] Last Admin: 07/04/18 21:01 Dose: 4 gm Mesalamine (Delzicol Dr) 800 mg PO TID [facility] Last Admin: 07/05/18 13:49 Dose: 800 mg Morphine Sulfate (Morphine) 4 mg IV Q4 PRN PRN Reason: Pain, severe (8-10) Last Admin: 07/04/18 11:24 Dose: 4 mg Legtg-6-Rmmp Ethyl Esters (Lovaza) 1 gm PO BID [facility] Last Admin: 07/05/18 09:57 Dose: 1 gm Pantoprazole Sodium (Protonix Ec Tab) 40 mg PO DAILY [facility] Last Admin: 07/05/18 09:57 Dose: 40 mg Prednisone (Prednisone Tab) 40 mg PO DAILY [facility] Last Admin: 07/05/18 09:57 Dose: 40 mg - Labs Labs: 07/05/18 06:46 07/05/18 06:46 PT 12.6 SECONDS (9.7-12.2) H 07/01/18 07:23 INR 1.2 07/01/18 07:23 APTT 33.4 SECONDS (21-34) 07/01/18 07:23 - Constitutional Appears: Well - Head Exam Head Exam: ATRAUMATIC, NORMAL INSPECTION, NORMOCEPHALIC - Eye Exam Eye Exam: EOMI, Normal appearance, PERRL Pupil Exam: NORMAL ACCOMODATION, PERRL - ENT Exam ENT Exam: Mucous Membranes Moist, Normal Exam - Neck Exam Neck Exam: Full ROM, Normal Inspection. absent: Lymphadenopathy - Respiratory Exam Respiratory Exam: Decreased Breath Sounds - Cardiovascular Exam Cardiovascular Exam: REGULAR RHYTHM, +S1, +S2 - GI/Abdominal Exam GI & Abdominal Exam: Soft, Diminished Bowel Sounds - Rectal Exam Rectal Exam: Deferred - Neurological Exam Neurological Exam: Oriented x3 Assessment and Plan (1) Abdominal colic Status: Acute (2) Ulcerative colitis, acute Status: Chronic (3) Abdominal pain Status: Acute (4) Agitation requiring sedation protocol Status: Acute (5) Alcohol abuse Status: Acute (6) Alcohol abuse Status: Acute (7) Alcohol abuse with intoxication Status: Acute (8) Alcohol ingestion Status: Acute (9) Alcohol intoxication Status: Acute (10) Arm laceration Status: Acute (11) Asthma Status: Acute (12) Asthma exacerbation Status: Acute (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 (14) Bronchitis Status: Acute (15) Cocaine abuse Status: Acute (16) Cocaine abuse with intoxication Status: Acute (17) Colitis Status: Acute (18) Colitis Status: Acute (19) Colitis, acute Status: Acute (20) Contact dermatitis Status: Acute (21) Dehydration Status: Acute (22) Diarrhea Status: Acute (23) Influenza-like illness Status: Acute (24) Knee injury Status: Acute (25) Muscle strain Status: Acute (26) Poison atif dermatitis Status: Acute (27) Rectal bleeding Status: Acute (28) Removal of suture Status: Acute (29) Shoulder pain Status: Acute (30) Shoulder strain Status: Acute (31) Ulcerative colitis Status: Acute (32) Upper respiratory infection Status: Acute (33) Upper respiratory infection Status: Acute (34) Urinary hesitancy Status: Acute (35) Viral syndrome Status: Acute (36) IBS (irritable bowel syndrome) Status: Chronic - Assessment and Plan (Free Text) Plan: plan discussed with patient moderate complexity of care albuterol bentyl delzicol dr wolf morphine prednisone tab protonix ec tab rowasa enema medications reviewed labs reviewed vitals reviewed
--- NOTE | 2018-07-05 21:07 | CARD ---
APPROVED REPORT Date of service: 07/04/2018 EKG Measurement Heart [id number] <Conclusion> Normal sinus rhythm Normal ECG
[2018-07-06 02:23] VITALS: PULSE 69; RESP 20; O2SAT 96
[2018-07-06 07:27] LABS: BASO % 0.4 % (0.0-2.0); EOS # 0.2 K/uL (0.0-0.7); EOS % 2.9 % (0.0-4.0); LYMPH # 2.4 K/uL (1.0-4.3); MEAN CELL VOLUME 90.9 fL (80.0-94.0); MEAN CORPUSCULAR HEMOGLOBIN 32.5 pg (27.0-31.0); MEAN CORPUSCULAR HGB CONC 35.7 g/dL (33.0-37.0); MEAN PLATELET VOLUME 7.7 fL (7.2-11.7); MONO # 0.9 K/uL (0.0-0.8); NEUT % 52.7 % (50.0-75.0); NRBC % 0.1 % (0.0-2.0); RBC 4.62 Mil/uL (4.40-5.90); RED CELL DISTRIBUTION WIDTH 12.9 % (11.5-14.5); WHITE BLOOD COUNT 7.5 K/uL (4.8-10.8)
--- NOTE | 2018-07-06 07:31 | CP.PCM.PN ---
Subjective - Date & Time of Evaluation Date of Evaluation: 07/06/18 Time of Evaluation: 08:00 - Subjective Subjective: Medicine Progress Note Dr. Kianna Jernigan Service Patient seen and examined at bedside in the AM. Per nursing no acute events occurred overnight. Patient states his bowel movements have improved with little to no blood in the stool. Patient denies any fevers, chills, headaches, nausea, or any other complaints. Objective - Vital Signs/Intake and Output Vital Signs (last 24 hours): Temp Pulse Resp BP Pulse Ox 98.1 F 69 20 127/83 96 07/05/18 23:20 07/05/18 23:20 07/05/18 23:20 07/05/18 23:20 07/05/18 23:20 - Medications Medications: Current Medications Albuterol Sulfate (Albuterol 0.083% Inhal Noemi (2.5 Mg/3 Ml) Ud) 2.5 mg IH RQ6 PRN PRN Reason: Shortness of Breath Dicyclomine HCl (Bentyl) 10 mg PO BID [facility] Last Admin: 07/05/18 18:22 Dose: 10 mg Mesalamine (Rowasa Enema) 4 gm RC HS [facility] Last Admin: 07/05/18 21:30 Dose: 4 gm Mesalamine (Delzicol Dr) 800 mg PO TID [facility] Last Admin: 07/05/18 18:22 Dose: 800 mg Morphine Sulfate (Morphine) 4 mg IV Q4 PRN PRN Reason: Pain, severe (8-10) Last Admin: 07/04/18 11:24 Dose: 4 mg Hpgqb-3-Zejm Ethyl Esters (Lovaza) 1 gm PO BID [facility] Last Admin: 07/05/18 18:22 Dose: 1 gm Pantoprazole Sodium (Protonix Ec Tab) 40 mg PO DAILY [facility] Last Admin: 07/05/18 09:57 Dose: 40 mg Prednisone (Prednisone Tab) 40 mg PO DAILY [facility] Last Admin: 07/05/18 09:57 Dose: 40 mg - Labs Labs: 07/06/18 07:03 07/05/18 06:46 PT 12.6 SECONDS (9.7-12.2) H 07/01/18 07:23 INR 1.2 07/01/18 07:23 APTT 33.4 SECONDS (21-34) 07/01/18 07:23 - Constitutional Appears: No Acute Distress - Head Exam Head Exam: ATRAUMATIC, NORMAL INSPECTION - Eye Exam Eye Exam: EOMI, Normal appearance - ENT Exam ENT Exam: Mucous Membranes Moist - Respiratory Exam Respiratory Exam: Clear to Ausculation Bilateral, NORMAL BREATHING PATTERN - Cardiovascular Exam Cardiovascular Exam: REGULAR RHYTHM, +S1, +S2 - GI/Abdominal Exam GI & Abdominal Exam: Soft, Normal Bowel Sounds. absent: Tenderness - Extremities Exam Extremities Exam: Normal Inspection - Neurological Exam Neurological Exam: Alert, Awake, Oriented x3 - Psychiatric Exam Psychiatric exam: Normal Affect Assessment and Plan - Assessment and Plan (Free Text) Assessment: 58 year old male with a past medical history of ulcerative colitis and asthma presents to the emergency department for abdominal pain and bloody stools for the past month or so. Plan: Ulcerative colitis Recent visit to GI Dr. Manzano and prescribed Prenisone and Mesalamine. Patient d/c both since symptoms became worse Abdomen pelvis ct: Nonspecific colitis involving the splenic flexure to rectum, consistent with known ulcerative colitis. No additional abnormality identified. GI Dr. Manzano consulted--> Help appreciated Flexible sigmoidoscopy - Left sided colitis (See report for full results) - Medications: * Mesalamine 4gm RC HS * Bentyl 10mg PO BID * Ciprofloxacin 400mg IVPB Q12 ERICKSON (Discontinued) * Flagyl 500mg IVPB Q8(Discontinued) * Hydrocortisone 100mg IV Q8 * Asacol 800mg PO TIC * Prednisone 40mg PO DAILY History of Asthma -Albuterol 2.5mg IH RQ6 PRN Prophylaxis -Protonix Disposition: Per GI patient stable to be discharged home. Patient discharged home. Patient to follow up with Dr. Manzano. Patient to follow up with GI for pathology results. Patient to continue Asacol and RowASA enemas. Start Prednisone Taper: 40mg daily for 4 days; followed by 30mg daily for 4 days; followed by 20mg daily for 4 days; followed by 10mg daily for 4 days Plan discussed with Attending Dr. Kianna Jernigan
[2018-07-06 07:36] LABS: ALB/GLOB RATIO 1.6 (1.0-2.1); ALBUMIN 3.5 g/dL (3.5-5.0); ALT/SGPT 20 U/L (21-72); AST/SGOT 18 U/L (17-59); BLOOD UREA NITROGEN 12 mg/dL (9-20); CALCIUM 8.1 mg/dl (8.6-10.4); GFR NON-AFRICAN AMERICAN > 60
[2018-07-06 07:55] VITALS: BP 137/90; TEMP 98.4
--- NOTE | 2018-07-06 08:39 | CP.PCM.PN ---
Subjective - Date & Time of Evaluation Date of Evaluation: 07/06/18 Time of Evaluation: 08:37 - Subjective Subjective: Feels better, no abdominal pain, tolerating diet, small amount of blood in stool, much improved. Objective - Vital Signs/Intake and Output Vital Signs (last 24 hours): Temp Pulse Resp BP Pulse Ox 98.4 F 69 20 137/90 96 07/06/18 07:00 07/06/18 07:00 07/06/18 07:00 07/06/18 07:00 07/06/18 07:00 - Medications Medications: Current Medications Albuterol Sulfate (Albuterol 0.083% Inhal Noemi (2.5 Mg/3 Ml) Ud) 2.5 mg IH RQ6 PRN PRN Reason: Shortness of Breath Dicyclomine HCl (Bentyl) 10 mg PO BID [facility] Last Admin: 07/05/18 18:22 Dose: 10 mg Mesalamine (Rowasa Enema) 4 gm RC HS [facility] Last Admin: 07/05/18 21:30 Dose: 4 gm Mesalamine (Delzicol Dr) 800 mg PO TID [facility] Last Admin: 07/05/18 18:22 Dose: 800 mg Morphine Sulfate (Morphine) 4 mg IV Q4 PRN PRN Reason: Pain, severe (8-10) Last Admin: 07/04/18 11:24 Dose: 4 mg Zdgbr-6-Qbzb Ethyl Esters (Lovaza) 1 gm PO BID [facility] Last Admin: 07/05/18 18:22 Dose: 1 gm Pantoprazole Sodium (Protonix Ec Tab) 40 mg PO DAILY [facility] Last Admin: 07/05/18 09:57 Dose: 40 mg Prednisone (Prednisone Tab) 40 mg PO DAILY [facility] Last Admin: 07/05/18 09:57 Dose: 40 mg - Labs Labs: 07/06/18 07:03 07/06/18 07:03 PT 12.6 SECONDS (9.7-12.2) H 07/01/18 07:23 INR 1.2 07/01/18 07:23 APTT 33.4 SECONDS (21-34) 07/01/18 07:23 - Constitutional Appears: Well, No Acute Distress - Head Exam Head Exam: NORMOCEPHALIC - Respiratory Exam Respiratory Exam: Clear to Ausculation Bilateral - Cardiovascular Exam Cardiovascular Exam: REGULAR RHYTHM - GI/Abdominal Exam GI & Abdominal Exam: Soft. absent: Tenderness Assessment and Plan (1) Ulcerative colitis, acute Status: Chronic - Assessment and Plan (Free Text) Assessment: Recommend discharging patient on Prednisone 40 mg/day, Asacol and RowASA enemas. Patient to follow up with Dr Manzano in office within 2 weeks
--- NOTE | 2018-07-06 19:55 | CP.PCM.DIS ---
Provider - Provider Date of Admission: 07/01/18 06:50 Attending physician: Oscar Jernigan MD Consults: 07/01/18 06:51 Gastroenterology Consult Stat Comment: UC exacerb Consulting Provider: Jef Manzano Consulting Physician: Jef Manzano Reason for Consult: UC exacerb Diagnosis - Discharge Diagnosis (1) Abdominal colic Status: Acute (2) Ulcerative colitis, acute Status: Chronic (3) Abdominal pain Status: Acute (4) Agitation requiring sedation protocol Status: Acute (5) Alcohol abuse Status: Acute (6) Alcohol abuse Status: Acute (7) Alcohol abuse with intoxication Status: Acute (8) Alcohol ingestion Status: Acute (9) Alcohol intoxication Status: Acute (10) Arm laceration Status: Acute (11) Asthma Status: Acute (12) Asthma exacerbation Status: Acute (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 (14) Bronchitis Status: Acute (15) Cocaine abuse Status: Acute (16) Cocaine abuse with intoxication Status: Acute (17) Colitis Status: Acute (18) Colitis Status: Acute (19) Colitis, acute Status: Acute (20) Contact dermatitis Status: Acute (21) Dehydration Status: Acute (22) Diarrhea Status: Acute (23) Influenza-like illness Status: Acute (24) Knee injury Status: Acute (25) Muscle strain Status: Acute (26) Poison atif dermatitis Status: Acute (27) Rectal bleeding Status: Acute (28) Removal of suture Status: Acute (29) Shoulder pain Status: Acute (30) Shoulder strain Status: Acute (31) Ulcerative colitis Status: Acute (32) Upper respiratory infection Status: Acute (33) Upper respiratory infection Status: Acute (34) Urinary hesitancy Status: Acute (35) Viral syndrome Status: Acute (36) IBS (irritable bowel syndrome) Status: Chronic Hospital Course - Lab Results Lab Results: Micro Results 07/02/18 14:45 Stool Stool Culture - Final NO SALMONELLA, SHIGELLA OR CAMPYLOBACTER ISOLATED. 07/02/18 14:45 Stool Ova and Parasite Concentrate Exam - Final Most Recent Lab Values WBC 7.5 K/uL (4.8-10.8) 07/06/18 07:03 RBC 4.62 Mil/uL (4.40-5.90) 07/06/18 07:03 Hgb 15.0 g/dL (12.0-18.0) 07/06/18 07:03 Hct 42.0 % (35.0-51.0) 07/06/18 07:03 MCV 90.9 fL (80.0-94.0) 07/06/18 07:03 MCH 32.5 pg (27.0-31.0) H 07/06/18 07:03 MCHC 35.7 g/dL (33.0-37.0) 07/06/18 07:03 RDW 12.9 % (11.5-14.5) 07/06/18 07:03 Plt Count 346 K/uL (130-400) 07/06/18 07:03 MPV 7.7 fL (7.2-11.7) 07/06/18 07:03 Neut % (Auto) 52.7 % (50.0-75.0) 07/06/18 07:03 Lymph % (Auto) 32.0 % (20.0-40.0) 07/06/18 07:03 [place] % (Auto) 12.0 % (0.0-10.0) H 07/06/18 07:03 Eos % (Auto) 2.9 % (0.0-4.0) 07/06/18 07:03 Baso % (Auto) 0.4 % (0.0-2.0) 07/06/18 07:03 Neut # (Auto) 4.0 K/uL (1.8-7.0) 07/06/18 07:03 Lymph # (Auto) 2.4 K/uL (1.0-4.3) 07/06/18 07:03 [place] # (Auto) 0.9 K/uL (0.0-0.8) H 07/06/18 07:03 Eos # (Auto) 0.2 K/uL (0.0-0.7) 07/06/18 07:03 Baso # (Auto) 0.0 K/uL (0.0-0.2) 07/06/18 07:03 PT 12.6 SECONDS (9.7-12.2) H 07/01/18 07:23 INR 1.2 07/01/18 07:23 APTT 33.4 SECONDS (21-34) 07/01/18 07:23 Sodium 135 mmol/L (132-148) 07/06/18 07:03 Potassium 3.4 mmol/L (3.6-5.2) L 07/06/18 07:03 Chloride 99 mmol/L (98-107) 07/06/18 07:03 Carbon Dioxide 25 mmol/L (22-30) 07/06/18 07:03 Anion Gap 15 (10-20) 07/06/18 07:03 BUN 12 mg/dL (9-20) 07/06/18 07:03 Creatinine 0.8 mg/dL (0.8-1.5) 07/06/18 07:03 Est GFR ( Amer) > 60 07/06/18 07:03 Est GFR (Non-Af Amer) > 60 07/06/18 07:03 Random Glucose 118 mg/dL (75-110) H D 07/06/18 07:03 Calcium 8.1 mg/dl (8.6-10.4) L 07/06/18 07:03 Phosphorus 2.5 mg/dL (2.5-4.5) 07/05/18 06:46 Magnesium 2.1 mg/dL (1.6-2.3) 07/05/18 06:46 Total Bilirubin 0.2 mg/dL (0.2-1.3) 07/06/18 07:03 AST 18 U/L (17-59) 07/06/18 07:03 ALT 20 U/L (21-72) L D 07/06/18 07:03 Alkaline Phosphatase 66 U/L (38-126) 07/06/18 07:03 C-Reactive Protein 20.10 mg/L (0.0-9.9) H 07/02/18 13:41 Total Protein 5.7 g/dL (6.3-8.3) L 07/06/18 07:03 Albumin 3.5 g/dL (3.5-5.0) 07/06/18 07:03 Globulin 2.2 gm/dL (2.2-3.9) 07/06/18 07:03 Albumin/Globulin Ratio 1.6 (1.0-2.1) 07/06/18 07:03 Lipase 88 U/L (23-300) 07/01/18 05:34 Urine Color Yellow (YELLOW) 07/01/18 05:55 Urine Clarity Clear (Clear) 07/01/18 05:55 Urine pH 6.0 (5.0-8.0) 07/01/18 05:55 Ur Specific Viola 1.019 (1.003-1.030) 07/01/18 05:55 Urine Protein Negative mg/dL (NEGATIVE) 07/01/18 05:55 Urine Glucose (UA) Normal mg/dL (Normal) 07/01/18 05:55 Urine Ketones Negative mg/dL (NEGATIVE) 07/01/18 05:55 Urine Blood 1+ (NEGATIVE) H 07/01/18 05:55 Urine Nitrate Negative (NEGATIVE) 07/01/18 05:55 Urine Bilirubin Negative (NEGATIVE) 07/01/18 05:55 Urine Urobilinogen Normal mg/dL (0.2-1.0) 07/01/18 05:55 Ur Leukocyte Esterase Neg Deedee/uL (Negative) 07/01/18 05:55 Urine WBC (Auto) 2 /hpf (0-5) 07/01/18 05:55 Urine RBC (Auto) 2 /hpf (0-3) 07/01/18 05:55 Urine Bacteria Rare (<OCC) 07/01/18 05:55 Stool Leukocytes, Qual Negative (NEGATIVE) 07/02/18 14:45 C. difficile Ag & Toxin Negative (NEGATIVE) 07/02/18 14:45 Blood Type O NEGATIVE 07/01/18 07:23 Antibody Screen Negative 07/01/18 07:23 Discharge Exam - Head Exam Head Exam: ATRAUMATIC, NORMAL INSPECTION - Eye Exam Eye Exam: EOMI, Normal appearance, PERRL Pupil Exam: NORMAL ACCOMODATION, PERRL - ENT Exam ENT Exam: Normal Exam - Neck Exam Neck exam: Full Rom - Respiratory Exam Respiratory Exam: Decreased Breath Sounds, Rales - Cardiovascular Exam Cardiovascular Exam: REGULAR RHYTHM, +S1, +S2 - GI/Abdominal Exam GI & Abdominal Exam: Diminished Bowel Sounds, Distended, Soft - Neurological Exam Neurological exam: Oriented x3 Discharge Plan - Discharge Medications Prescriptions: Mesalamine [Asacol HD 800mg] 800 mg PO TID 30 Days tcp Prednisone [Deltasone] 20 mg PO DAILY #4 tablet predniSONE [predniSONE Tab] 30 mg PO DAILY #4 tab predniSONE [predniSONE Tab] 10 mg PO DAILY #4 tab predniSONE [predniSONE Tab] 40 mg PO DAILY #4 tab Mesalamine [Rowasa Enema] 4 gm HS #30 nma - Follow Up Plan Condition: GUARDED Disposition: HOME/ ROUTINE Instructions: Ulcerative Colitis (DC), Stomach Ache and Stomach Upset, Prednisone Additional Instructions: Patient to follow up with Dr. Manzano. Patient to continue Asacol and RowASA enemas. Start Prednisone Taper: 40mg daily for 4 days; followed by 30mg daily for 4 days; followed by 20mg daily for 4 days; followed by 10mg daily for 4 days Referrals: Isabela Jernigan MD [Staff Provider] - Jef Manzano MD [Staff Provider] - Morgan Dunbar MD [Staff Provider] -
== END 2018-07-06 12:59 | disposition home or self-care (01) | DRG 179 ==
LOC: C.ER 04:55 → C.9E 06:50 → C.6T 14:15
PROVIDERS: ADMIT Internal Medicine Nephrology; ATTEND Internal Medicine Nephrology
DX: K51.80 Other ulcerative colitis without complications (principal); J45.901 Unspecified asthma with (acute) exacerbation; F14.120 Cocaine abuse with intoxication, uncomplicated; F10.129 Alcohol abuse with intoxication, unspecified; E86.0 Dehydration; Z87.891 Personal history of nicotine dependence; R45.1 Restlessness and agitation; J11.1 Influenza due to unidentified influenza virus with other respiratory manifestations; L23.7 Allergic contact dermatitis due to plants, except food

== ENCOUNTER 2018-07-13 02:18 | Observation (INO) | payer OTHER ==
[2018-07-13 02:18] VITALS: BMI 26.6
[2018-07-13] MEDS ORDERED: Sodium Chloride 0.9% 1,000 ML IV ONE (03:00)
[2018-07-13] MEDS ORDERED: Sodium Chloride 0.9% 1,000 ML ONE (03:19)
[2018-07-13 04:09] LABS: BASO # 0.1 K/uL (0.0-0.2); EOS # 0.4 K/uL (0.0-0.7); EOS % 3.4 % (0.0-4.0); HEMOGLOBIN 14.6 g/dL (12.0-18.0); LYMPH # 2.1 K/uL (1.0-4.3); LYMPH % 18.2 % (20.0-40.0); MEAN CELL VOLUME 91.5 fL (80.0-94.0); MEAN CORPUSCULAR HEMOGLOBIN 31.6 pg (27.0-31.0); MEAN CORPUSCULAR HGB CONC 34.5 g/dL (33.0-37.0); MEAN PLATELET VOLUME 7.7 fL (7.2-11.7); MONO # 1.2 K/uL (0.0-0.8); MONO % 10.8 % (0.0-10.0); NEUT # 7.6 K/uL (1.8-7.0); NEUT % 66.6 % (50.0-75.0); RBC 4.64 Mil/uL (4.40-5.90); RED CELL DISTRIBUTION WIDTH 12.8 % (11.5-14.5); WHITE BLOOD COUNT 11.4 K/uL (4.8-10.8)
[2018-07-13 04:28] LABS: ALB/GLOB RATIO 1.4 (1.0-2.1); ALBUMIN 3.7 g/dL (3.5-5.0); ALT/SGPT 20 U/L (21-72); AST/SGOT 23 U/L (17-59); BLOOD UREA NITROGEN 10 mg/dL (9-20); CALCIUM 8.4 mg/dl (8.6-10.4); GFR NON-AFRICAN AMERICAN > 60; LIPASE 240 U/L (23-300)
--- NOTE | 2018-07-13 05:39 | C.PDOC ---
History Of Present Illness 58 year old male presents with lower abdominal pain and bloody diarrhea for the past 3-4 days. Patient has Hx of ulcerative colitis, just discharged from [facility] on 07/06/18, given mesalamine, bentyl, cipro, flagyl, and prednisone. Patient admits he stopped taking his medication a few days ago. Denies fever, nausea, vomiting, or dysuria. GI: Dr. Dunbar, Dr. Manzano Time Seen by Provider: 07/13/18 02:27 Chief Complaint (Nursing): GI Problem History Per: Patient History/Exam Limitations: no limitations Onset/Duration Of Symptoms: Days (3-4) Current Symptoms Are (Timing): Still Present Location Of Pain/Discomfort: Other (Lower) Associated Symptoms: Diarrhea (Bloody). denies: Fever, Nausea, Vomiting, Other (Dysuria) Exacerbating Factors: None Alleviating Factors: None Recent travel outside of the [place]: No Past Medical History Reviewed: Historical Data, Nursing Documentation, Vital Signs Vital Signs: Last Vital Signs Temp 97.6 F 07/13/18 02:22 Pulse 73 07/13/18 02:22 Resp 18 07/13/18 02:22 BP 117/79 07/13/18 02:22 Pulse Ox 98 07/13/18 02:22 Primary Care Provider: Morgan Dunbar - Medical History PMH: Anxiety, Asthma, Fractures (right mid clavicle), Chronic Pain (chronic shoulder pain s/p work injury in 2009) Denies: Chronic Kidney Disease Surgical History: Endoscopy, Hernia Repair (inguinal) - [facility] Procedures INJECT/INFUSE NEC (02/15/14) Family History: States: Unknown Family Hx - Social History Hx Tobacco Use: No Hx Alcohol Use: Yes (BEER/WHISKEY) Hx Substance Use: No - Immunization History Hx Tetanus Toxoid Vaccination: No Hx Influenza Vaccination: No Hx Pneumococcal Vaccination: No Review Of Systems Except As Marked, All Systems Reviewed And Found Negative. Gastrointestinal: Positive for: Abdominal Pain, Diarrhea (Bloody) Physical Exam - Physical Exam Appears: Non-toxic, Other (In mild pain) Skin: Normal Color, Warm Head: Atraumatic, Normacephalic Eye(s): bilateral: Normal Inspection Oral Mucosa: Moist Chest: Symmetrical, No Tenderness Cardiovascular: Rhythm Regular Respiratory: Normal Breath Sounds, No Rales, No Rhonchi, No Wheezing Gastrointestinal/Abdominal: Soft, Tenderness (Diffuse, greatest at LLQ), No Guarding, No Rebound Back: No CVA Tenderness Neurological/Psych: Oriented x3, Normal Speech ED Course And Treatment - Laboratory Results Result Diagrams: 07/13/18 04:05 07/13/18 04:05 Lab Results: Total Bilirubin 0.4 mg/dL (0.2-1.3) 07/13/18 04:05 AST 23 U/L (17-59) 07/13/18 04:05 ALT 20 U/L (21-72) L 07/13/18 04:05 Alkaline Phosphatase 70 U/L (38-126) 07/13/18 04:05 Total Protein 6.3 g/dL (6.3-8.3) 07/13/18 04:05 Albumin 3.7 g/dL (3.5-5.0) 07/13/18 04:05 Globulin 2.6 gm/dL (2.2-3.9) 07/13/18 04:05 Albumin/Globulin Ratio 1.4 (1.0-2.1) 07/13/18 04:05 Lipase 240 U/L (23-300) 07/13/18 04:05 O2 Sat by Pulse Oximetry: 98 (Room air) Pulse Ox Interpretation: Normal Progress Note: Blood work ordered. Protonix, solumedrol, and IV fluids administered. Disposition - Disposition Forms: [facility] (Kinyarwanda) - Scribe Statement The provider has reviewed the documentation as recorded by the Scribe Nawaf Green All medical record entries made by the Scribe were at my direction and person ally dictated by me. I have reviewed the chart and agree that the record accurately reflects my personal performance of the history, physical exam, medical decision making, and the department course for this patient. I have also personally directed, reviewed, and agree with the discharge instructions and disposition.
--- NOTE | 2018-07-13 09:55 | CP.PCM.CON ---
History of Present Illness - History of Present Illness History of Present Illness: CC: abdominal pain HPI: 58 yo man with left sided UC, on colonoscopy 2 weeks ago, presents to ER with burning abdominal pain from his medications and bloody diarrhea. recently admitted for same, and discharged on Prednisone, Asacol, RowASA enema, however due to burning pain he stopped the PO medications. Known history of medication non-compliance, usually followed by dr Manzano. C Diff was ruled out on recent admission, and Calprotectin was > 2,000, and colon biopsies confirmed UC. Review of Systems - Cardiovascular Cardiovascular: absent: Chest Pain - Respiratory Respiratory: absent: Dyspnea - Gastrointestinal Gastrointestinal: Abdominal Pain, Hematochezia Past Patient History - Infectious Disease Hx of Infectious Diseases: None - Past Medical History & Family History Past Medical History?: Yes - Past Social History Smoking Status: Former Smoker - CARDIAC Hx Cardiac Disorders: No - PULMONARY Hx Asthma: Yes - NEUROLOGICAL Hx Neurological Disorder: No - HEENT Hx HEENT Problems: No - RENAL Hx Chronic Kidney Disease: No - ENDOCRINE/METABOLIC Hx Endocrine Disorders: No - HEMATOLOGICAL/ONCOLOGICAL Hx Blood Disorders: No - INTEGUMENTARY Hx Dermatological Problems: No - MUSCULOSKELETAL/RHEUMATOLOGICAL Hx Fractures: Yes (right mid clavicle) - GASTROINTESTINAL Hx Gastrointestinal Disorders: Yes Hx Colitis: Yes (ulcerative colitis) - GENITOURINARY/GYNECOLOGICAL Hx Genitourinary Disorders: Yes Hx Prostate Problems: Yes - PSYCHIATRIC Hx Anxiety: Yes Hx Substance Use: No - SURGICAL HISTORY Hx Surgeries: Yes Hx Musculoskeletal Surgery: Yes Other/Comment: Rt knee surgery when he was 8 yrs old. LEFT LOWER LEG CYST 2 WEEKS AGO - ANESTHESIA Hx Anesthesia: Yes Hx Anesthesia Reactions: No Meds Allergies/Adverse Reactions: Allergies Allergy/AdvReac Type Severity Reaction Status Date / Time shrimp Allergy Intermediate SHORTNESS Verified 03/08/18 07:06 OF BREATH iodine AdvReac RASH Verified 03/08/18 07:06 seafood Allergy SHORTNESS Uncoded 03/08/18 07:06 OF BREATH - Medications Medications: Current Medications Mesalamine (Delzicol Dr) 800 mg PO TID [facility] Mesalamine (Rowasa Enema) 4 gm RC HS [facility] Morphine Sulfate (Morphine) 2 mg IVP Q4 PRN PRN Reason: Pain, moderate (4-7) Last Admin: 07/13/18 08:32 Dose: 2 mg Prednisone (Prednisone Tab) 20 mg PO BID [facility] Physical Exam - Constitutional Appears: Well, No Acute Distress - Head Exam Head Exam: ATRAUMATIC, NORMOCEPHALIC - Eye Exam Eye Exam: absent: Scleral icterus - Neck Exam Neck exam: Positive for: Normal Inspection - Respiratory Exam Respiratory Exam: Clear to Auscultation Bilateral - Cardiovascular Exam Cardiovascular Exam: REGULAR RHYTHM - GI/Abdominal Exam GI & Abdominal Exam: Soft. absent: Mass, Organomegaly, Rebound, Tenderness - Back Exam Back exam: NORMAL INSPECTION - Neurological Exam Neurological exam: Alert, Oriented x3 - Psychiatric Exam Psychiatric exam: Normal Affect, Normal Mood - Skin Skin Exam: Normal Color Results - Vital Signs Recent Vital Signs: Last Vital Signs Temp 97.6 F 07/13/18 07:40 Pulse 75 07/13/18 07:40 Resp 20 07/13/18 07:40 BP 103/64 07/13/18 07:40 Pulse Ox 97 07/13/18 07:40 - Labs Result Diagrams: 07/13/18 04:05 07/13/18 04:05 Labs: Laboratory Results - last 24 hr 07/13/18 07/13/18 07/13/18 04:05 04:05 09:15 WBC 11.4 H D RBC 4.64 Hgb 14.6 Hct 42.4 MCV 91.5 MCH 31.6 H MCHC 34.5 RDW 12.8 Plt Count 294 MPV 7.7 Neut % (Auto) 66.6 Lymph % (Auto) 18.2 L [place] % (Auto) 10.8 H Eos % (Auto) 3.4 Baso % (Auto) 1.0 Neut # (Auto) 7.6 H Lymph # (Auto) 2.1 [place] # (Auto) 1.2 H Eos # (Auto) 0.4 Baso # (Auto) 0.1 Sodium 137 Potassium 4.1 Chloride 102 Carbon Dioxide 24 Anion Gap 15 BUN 10 Creatinine 0.7 L Est GFR ( Amer) > 60 Est GFR (Non-Af Amer) > 60 Random Glucose 88 D Calcium 8.4 L Total Bilirubin 0.4 AST 23 ALT 20 L Alkaline Phosphatase 70 C-React Prot High Sens > 15.00 H Total Protein 6.3 Albumin 3.7 Globulin 2.6 Albumin/Globulin Ratio 1.4 Lipase 240 Assessment & Plan (1) Ulcerative colitis Assessment and Plan: Left sided colitis with medication noncompliance and abdominal pain Rec: Resume prednisone +oral/topical Mesalamine. Add H2 ricky to alleviate burning abdominal pain side effect of medications. 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
--- NOTE | 2018-07-13 20:10 | CP.PCM.HP ---
Past Patient History - Infectious Disease Hx of Infectious Diseases: None - Past Medical History & Family History Past Medical History?: Yes - Past Social History Smoking Status: Former Smoker - CARDIAC Hx Cardiac Disorders: No - PULMONARY Hx Asthma: Yes - NEUROLOGICAL Hx Neurological Disorder: No - HEENT Hx HEENT Problems: No - RENAL Hx Chronic Kidney Disease: No - ENDOCRINE/METABOLIC Hx Endocrine Disorders: No - HEMATOLOGICAL/ONCOLOGICAL Hx Blood Disorders: No - INTEGUMENTARY Hx Dermatological Problems: No - MUSCULOSKELETAL/RHEUMATOLOGICAL Hx Fractures: Yes (right mid clavicle) - GASTROINTESTINAL Hx Gastrointestinal Disorders: Yes Hx Colitis: Yes (ulcerative colitis) - GENITOURINARY/GYNECOLOGICAL Hx Genitourinary Disorders: Yes Hx Prostate Problems: Yes - PSYCHIATRIC Hx Anxiety: Yes Hx Substance Use: No - SURGICAL HISTORY Hx Surgeries: Yes Hx Musculoskeletal Surgery: Yes Other/Comment: Rt knee surgery when he was 8 yrs old. LEFT LOWER LEG CYST 2 WEEKS AGO - ANESTHESIA Hx Anesthesia: Yes Hx Anesthesia Reactions: No Meds Allergies/Adverse Reactions: Allergies Allergy/AdvReac Type Severity Reaction Status Date / Time shrimp Allergy Intermediate SHORTNESS Verified 03/08/18 07:06 OF BREATH iodine AdvReac RASH Verified 03/08/18 07:06 seafood Allergy SHORTNESS Uncoded 03/08/18 07:06 OF BREATH Physical Exam - Constitutional Appears: Well - Head Exam Head Exam: ATRAUMATIC, NORMAL INSPECTION, NORMOCEPHALIC - Eye Exam Eye Exam: EOMI, Normal appearance, PERRL Pupil Exam: NORMAL ACCOMODATION, PERRL - ENT Exam ENT Exam: Mucous Membranes Moist, Normal Exam - Neck Exam Neck exam: Positive for: Normal Inspection - Respiratory Exam Respiratory Exam: Decreased Breath Sounds - Cardiovascular Exam Cardiovascular Exam: REGULAR RHYTHM, +S1, +S2 - GI/Abdominal Exam GI & Abdominal Exam: Diminished Bowel Sounds, Soft - Rectal Exam Rectal Exam: Deferred - Neurological Exam Neurological exam: Oriented x3 Results - Vital Signs Recent Vital Signs: Last Vital Signs Temp 98.1 F 07/13/18 15:56 Pulse 85 07/13/18 15:56 Resp 20 07/13/18 15:56 BP 117/71 07/13/18 15:56 Pulse Ox 97 07/13/18 19:00 - Labs Result Diagrams: 07/13/18 04:05 07/13/18 04:05 Labs: Laboratory Results - last 24 hr 0507/13/18 07/13/18 04:05 04:05 09:15 WBC 11.4 H D RBC 4.64 Hgb 14.6 Hct 42.4 MCV 91.5 MCH 31.6 H MCHC 34.5 RDW 12.8 Plt Count 294 MPV 7.7 Neut % (Auto) 66.6 Lymph % (Auto) 18.2 L [place] % (Auto) 10.8 H Eos % (Auto) 3.4 Baso % (Auto) 1.0 Neut # (Auto) 7.6 H Lymph # (Auto) 2.1 [place] # (Auto) 1.2 H Eos # (Auto) 0.4 Baso # (Auto) 0.1 Sodium 137 Potassium 4.1 Chloride 102 Carbon Dioxide 24 Anion Gap 15 BUN 10 Creatinine 0.7 L Est GFR ( Amer) > 60 Est GFR (Non-Af Amer) > 60 Random Glucose 88 D Calcium 8.4 L Total Bilirubin 0.4 AST 23 ALT 20 L Alkaline Phosphatase 70 C-React Prot High Sens > 15.00 H Total Protein 6.3 Albumin 3.7 Globulin 2.6 Albumin/Globulin Ratio 1.4 Lipase 240
[2018-07-14] MEDS: MethylPREDNISolone 40 mg Vial IVP SCH ×2 (10:22→17:35)
[2018-07-14] MEDS: Pantoprazole 40 mg EC Tab PO SCH (10:22)
--- NOTE | 2018-07-14 12:39 | CP.PCM.PN ---
Subjective - Date & Time of Evaluation Date of Evaluation: 07/14/18 Time of Evaluation: 12:00 - Subjective Subjective: f/u abd pain, diarrhea. Reports feeling better after steroids changed to IV. Reports epig burning after taking po pred. Reports less diarrhea. Denies fever, chills, SZ, LOC, MAN, cough, MAN, hematuria, hemoptysis Objective - Vital Signs/Intake and Output Vital Signs (last 24 hours): Temp Pulse Resp BP Pulse Ox 97.7 F 66 95 H 125/81 99 07/14/18 07:00 07/14/18 07:00 07/14/18 07:00 07/14/18 07:00 07/14/18 00:49 - Medications Medications: Current Medications Dicyclomine HCl (Bentyl) 10 mg PO QID [facility] Last Admin: 07/14/18 10:22 Dose: 10 mg Mesalamine (Delzicol Dr) 800 mg PO TID [facility] Last Admin: 07/14/18 10:26 Dose: 800 mg Mesalamine (Rowasa Enema) 4 gm RC HS [facility] Last Admin: 07/13/18 21:09 Dose: 4 gm Methylprednisolone (Solu-Medrol) 20 mg IVP BID [facility] Last Admin: 07/14/18 10:22 Dose: 20 mg Morphine Sulfate (Morphine) 2 mg IVP Q4 PRN PRN Reason: Pain, moderate (4-7) Last Admin: 07/14/18 02:26 Dose: 2 mg Pantoprazole Sodium (Protonix Ec Tab) 40 mg PO DAILY [facility] Last Admin: 07/14/18 10:22 Dose: 40 mg - Labs Labs: 07/13/18 04:05 07/13/18 04:05 - Constitutional Appears: Well - Neck Exam Neck Exam: absent: Tenderness - Respiratory Exam Respiratory Exam: Clear to Ausculation Bilateral - Cardiovascular Exam Cardiovascular Exam: RRR - GI/Abdominal Exam GI & Abdominal Exam: Soft, Normal Bowel Sounds. absent: Guarding, Rigid, Mass, Rebound Additional comments: mld LLQ tenderness - Neurological Exam Neurological Exam: Alert, Awake, Oriented x3 - Skin Skin Exam: Intact Assessment and Plan (1) Abdominal pain Assessment & Plan: UC Status: Acute (2) Colitis Assessment & Plan: UC- improving.. Cont 5 ASA, steroids, omeprazole Status: Acute (3) Diarrhea Assessment & Plan: Improving Status: Acute (4) Rectal bleeding Assessment & Plan: less Status: Acute
--- NOTE | 2018-07-14 14:27 | CP.PCM.PN ---
Subjective - Date & Time of Evaluation Date of Evaluation: 07/14/18 - Subjective Subjective: patient seen and examined today no dizziness no diarrhea no fever no nausea no vomiting no shortness of breath Objective - Vital Signs/Intake and Output Vital Signs (last 24 hours): Temp Pulse Resp BP Pulse Ox 97.7 F 66 95 H 125/81 99 07/14/18 07:00 07/14/18 07:00 07/14/18 07:00 07/14/18 07:00 07/14/18 00:49 - Medications Medications: Current Medications Dicyclomine HCl (Bentyl) 10 mg PO QID [facility] Last Admin: 07/14/18 13:39 Dose: 10 mg Mesalamine (Delzicol Dr) 800 mg PO TID [facility] Last Admin: 07/14/18 13:39 Dose: 800 mg Mesalamine (Rowasa Enema) 4 gm RC HS [facility] Last Admin: 07/13/18 21:09 Dose: 4 gm Methylprednisolone (Solu-Medrol) 20 mg IVP BID [facility] Last Admin: 07/14/18 10:22 Dose: 20 mg Morphine Sulfate (Morphine) 2 mg IVP Q4 PRN PRN Reason: Pain, moderate (4-7) Last Admin: 07/14/18 02:26 Dose: 2 mg Pantoprazole Sodium (Protonix Ec Tab) 40 mg PO DAILY [facility] Last Admin: 07/14/18 10:22 Dose: 40 mg - Labs Labs: 07/13/18 04:05 07/13/18 04:05 - Constitutional Appears: Well - Head Exam Head Exam: ATRAUMATIC, NORMAL INSPECTION, NORMOCEPHALIC - Eye Exam Eye Exam: EOMI, Normal appearance, PERRL Pupil Exam: NORMAL ACCOMODATION, PERRL - ENT Exam ENT Exam: Mucous Membranes Moist, Normal Exam - Neck Exam Neck Exam: Full ROM, Normal Inspection. absent: Lymphadenopathy - Respiratory Exam Respiratory Exam: Decreased Breath Sounds - Cardiovascular Exam Cardiovascular Exam: REGULAR RHYTHM, +S1, +S2 - GI/Abdominal Exam GI & Abdominal Exam: Soft, Diminished Bowel Sounds - Rectal Exam Rectal Exam: Deferred - Neurological Exam Neurological Exam: Oriented x3
[2018-07-14 15:37] VITALS: RESP 20
[2018-07-15 07:53] LABS: MEAN CORPUSCULAR HEMOGLOBIN 31.9 pg (27.0-31.0); MEAN CORPUSCULAR HGB CONC 35.8 g/dL (33.0-37.0); MEAN PLATELET VOLUME 7.8 fL (7.2-11.7); RBC 4.39 Mil/uL (4.40-5.90); RED CELL DISTRIBUTION WIDTH 12.8 % (11.5-14.5); WHITE BLOOD COUNT 10.8 K/uL (4.8-10.8)
[2018-07-15 08:08] LABS: ALB/GLOB RATIO 1.3 (1.0-2.1); ALBUMIN 3.5 g/dL (3.5-5.0); ALT/SGPT 22 U/L (21-72); AST/SGOT 17 U/L (17-59); BLOOD UREA NITROGEN 19 mg/dL (9-20); CALCIUM 8.6 mg/dl (8.6-10.4); GFR NON-AFRICAN AMERICAN > 60
[2018-07-15 08:09] LABS: MEAN CELL VOLUME 89.3 fL (80.0-94.0)
[2018-07-15] MEDS: MethylPREDNISolone 40 mg Vial IVP SCH ×2 (09:06→17:11)
[2018-07-15] MEDS: Pantoprazole 40 mg EC Tab PO SCH (09:07)
--- NOTE | 2018-07-15 12:10 | CP.PCM.PN ---
Subjective - Date & Time of Evaluation Date of Evaluation: 07/15/18 Time of Evaluation: 11:40 - Subjective Subjective: f/u colitis. Less abd pain. Less diarrhea. Les RB. Denies CP, SOB, fever, chills, MAN Cp , SOB, melena Objective - Vital Signs/Intake and Output Vital Signs (last 24 hours): Temp Pulse Resp BP Pulse Ox 97.5 F L 70 20 142/92 H 96 07/15/18 07:00 07/15/18 07:00 07/15/18 07:00 07/15/18 07:00 07/15/18 07:00 - Medications Medications: Current Medications Dicyclomine HCl (Bentyl) 10 mg PO QID [facility] Last Admin: 07/15/18 09:07 Dose: 10 mg Mesalamine (Delzicol Dr) 800 mg PO TID [facility] Last Admin: 07/15/18 09:07 Dose: 800 mg Mesalamine (Rowasa Enema) 4 gm RC HS [facility] Last Admin: 07/14/18 21:33 Dose: 4 gm Methylprednisolone (Solu-Medrol) 20 mg IVP BID [facility] Last Admin: 07/15/18 09:06 Dose: 20 mg Morphine Sulfate (Morphine) 2 mg IVP Q4 PRN PRN Reason: Pain, moderate (4-7) Last Admin: 07/15/18 07:59 Dose: 2 mg Pantoprazole Sodium (Protonix Ec Tab) 40 mg PO DAILY [facility] Last Admin: 07/15/18 09:07 Dose: 40 mg - Labs Labs: 07/15/18 07:46 07/15/18 07:46 - Constitutional Appears: Well - Respiratory Exam Respiratory Exam: Clear to Ausculation Bilateral - Cardiovascular Exam Cardiovascular Exam: RRR - GI/Abdominal Exam GI & Abdominal Exam: Soft, Normal Bowel Sounds. absent: Rigid, Tenderness, Mass, Rebound - Neurological Exam Neurological Exam: Alert, Awake, Oriented x3 Assessment and Plan (1) Abdominal pain Status: Acute (2) Colitis Assessment & Plan: improving Rec: IV steroids. Change to po prednisone when able. Cont pantoprazole Status: Acute (3) Diarrhea Status: Acute (4) Rectal bleeding Status: Acute
--- NOTE | 2018-07-15 19:38 | CP.PCM.PN ---
Subjective - Date & Time of Evaluation Date of Evaluation: 07/15/18 Objective - Vital Signs/Intake and Output Vital Signs (last 24 hours): Temp Pulse Resp BP Pulse Ox 97.3 F L 67 20 116/75 97 07/15/18 16:00 07/15/18 16:00 07/15/18 16:00 07/15/18 16:00 07/15/18 16:00 - Medications Medications: Current Medications Dicyclomine HCl (Bentyl) 10 mg PO QID [facility] Last Admin: 07/15/18 17:10 Dose: 10 mg Mesalamine (Delzicol Dr) 800 mg PO TID [facility] Last Admin: 07/15/18 17:10 Dose: 800 mg Mesalamine (Rowasa Enema) 4 gm RC HS [facility] Last Admin: 07/14/18 21:33 Dose: 4 gm Methylprednisolone (Solu-Medrol) 20 mg IVP BID [facility] Last Admin: 07/15/18 17:11 Dose: 20 mg Morphine Sulfate (Morphine) 2 mg IVP Q4 PRN PRN Reason: Pain, moderate (4-7) Last Admin: 07/15/18 07:59 Dose: 2 mg Pantoprazole Sodium (Protonix Ec Tab) 40 mg PO DAILY [facility] Last Admin: 07/15/18 09:07 Dose: 40 mg - Labs Labs: 07/15/18 07:46 07/15/18 07:46
[2018-07-16] MEDS: Pantoprazole 40 mg EC Tab PO SCH (09:25)
[2018-07-16] MEDS: MethylPREDNISolone 40 mg Vial IVP SCH ×2 (09:25→17:02)
--- NOTE | 2018-07-16 10:57 | CP.PCM.PN ---
Subjective - Date & Time of Evaluation Date of Evaluation: 07/16/18 Time of Evaluation: 10:54 - Subjective Subjective: f/u colitis. Reports still episodes of abd pain- moderate. Diarrhea is improving. RB is improving. Denies fever, chills , SZ, LOC, MAN, cough, CP, SOB, hematuria Objective - Vital Signs/Intake and Output Vital Signs (last 24 hours): Temp Pulse Resp BP Pulse Ox 97.8 F 60 20 148/92 H 99 07/16/18 07:00 07/16/18 07:00 07/16/18 07:00 07/16/18 07:00 07/16/18 07:00 Intake and Output: 07/16/18 07/16/18 06:59 18:59 Intake Total 500 Balance 500 - Medications Medications: Current Medications Dicyclomine HCl (Bentyl) 10 mg PO QID [facility] Last Admin: 07/16/18 09:25 Dose: 10 mg Mesalamine (Delzicol Dr) 800 mg PO TID [facility] Last Admin: 07/16/18 09:25 Dose: 800 mg Mesalamine (Rowasa Enema) 4 gm RC HS [facility] Last Admin: 07/15/18 21:04 Dose: Not Given Methylprednisolone (Solu-Medrol) 20 mg IVP BID [facility] Last Admin: 07/16/18 09:25 Dose: 20 mg Morphine Sulfate (Morphine) 2 mg IVP Q4 PRN PRN Reason: Pain, moderate (4-7) Last Admin: 07/16/18 07:27 Dose: 2 mg Pantoprazole Sodium (Protonix Ec Tab) 40 mg PO DAILY [facility] Last Admin: 07/16/18 09:25 Dose: 40 mg - Labs Labs: 07/15/18 07:46 07/15/18 07:46 - Constitutional Appears: Well - Neck Exam Neck Exam: absent: Tenderness - Respiratory Exam Respiratory Exam: Clear to Ausculation Bilateral - Cardiovascular Exam Cardiovascular Exam: RRR - GI/Abdominal Exam GI & Abdominal Exam: Soft, Tenderness, Normal Bowel Sounds. absent: Guarding, Mass, Rebound Additional comments: Mild LLQ tenderness - Extremities Exam Extremities Exam: absent: Pedal Edema - Neurological Exam Neurological Exam: Alert, Awake, Oriented x3 Assessment and Plan (1) Abdominal pain Assessment & Plan: colitis Status: Acute (2) Colitis Assessment & Plan: Overall improving .. Still getting pains. Rec- IV solumedrol, PPI, 5 ASA meds. Status: Acute (3) Diarrhea Assessment & Plan: colitis- improving Status: Acute (4) Rectal bleeding Assessment & Plan: colitis- improving Status: Acute
--- NOTE | 2018-07-16 12:06 | CP.PCM.PN ---
Subjective - Date & Time of Evaluation Date of Evaluation: 07/16/18 Time of Evaluation: 12:03 - Subjective Subjective: CHART REVIEWED. PT SEEN AND EXAMINED., COVERING DR Sabine GUTIERREZ PT ALERT, FEELS BETTER., EATING REG DIET. MIN BLOOD IN STOOL TODAY, LESS ABDOM PAIN. ROS; OTHERWISE NEG. Objective - Vital Signs/Intake and Output Vital Signs (last 24 hours): Temp Pulse Resp BP Pulse Ox 97.8 F 60 20 148/92 H 99 07/16/18 07:00 07/16/18 07:00 07/16/18 07:00 07/16/18 07:00 07/16/18 07:00 Intake and Output: 07/16/18 07/16/18 06:59 18:59 Intake Total 500 Balance 500 - Medications Medications: Current Medications Dicyclomine HCl (Bentyl) 10 mg PO QID [facility] Last Admin: 07/16/18 09:25 Dose: 10 mg Mesalamine (Delzicol Dr) 800 mg PO TID [facility] Last Admin: 07/16/18 09:25 Dose: 800 mg Mesalamine (Rowasa Enema) 4 gm RC HS [facility] Last Admin: 07/15/18 21:04 Dose: Not Given Methylprednisolone (Solu-Medrol) 20 mg IVP BID [facility] Last Admin: 07/16/18 09:25 Dose: 20 mg Morphine Sulfate (Morphine) 2 mg IVP Q4 PRN PRN Reason: Pain, moderate (4-7) Last Admin: 07/16/18 07:27 Dose: 2 mg Pantoprazole Sodium (Protonix Ec Tab) 40 mg PO DAILY [facility] Last Admin: 07/16/18 09:25 Dose: 40 mg - Labs Labs: 07/15/18 07:46 07/15/18 07:46 - Constitutional Appears: No Acute Distress - Head Exam Head Exam: ATRAUMATIC, NORMOCEPHALIC - Eye Exam Eye Exam: EOMI, Normal appearance - ENT Exam ENT Exam: Mucous Membranes Moist - Neck Exam Neck Exam: Normal Inspection - Respiratory Exam Respiratory Exam: absent: Wheezes, Respiratory Distress - Cardiovascular Exam Cardiovascular Exam: RRR, +S1, +S2 - GI/Abdominal Exam GI & Abdominal Exam: Soft - Rectal Exam Rectal Exam: Deferred - Extremities Exam Extremities Exam: absent: Calf Tenderness, Pedal Edema - Back Exam Back Exam: absent: CVA tenderness (L), CVA tenderness (R) - Neurological Exam Neurological Exam: Alert, Awake, CN II-XII Intact, Oriented x3 - Psychiatric Exam Psychiatric exam: Normal Mood - Skin Skin Exam: absent: Rash Assessment and Plan (1) Anxiety Status: Acute (2) Alcohol abuse Status: Acute (3) Asthma Status: Acute (4) Ulcerative colitis, acute Status: Chronic - Assessment and Plan (Free Text) Assessment: RESP STATUS COMFORTABLE AT REST. TOLERATING PO DIET. CONT PER GI. S/P MSO4 THIS AM. MONITOR H/H. XRAYS REVIEWED. DISCUSSED WITH STAFF AT LENGTH. TIME SPENT 40 MIN.
[2018-07-17 00:03] VITALS: O2SAT 97
[2018-07-17] MEDS: Pantoprazole 40 mg EC Tab PO SCH (09:17)
[2018-07-17] MEDS: MethylPREDNISolone 40 mg Vial IVP SCH (09:18)
--- NOTE | 2018-07-17 15:24 | CP.PCM.PN ---
Subjective - Date & Time of Evaluation Date of Evaluation: 07/17/18 Time of Evaluation: 15:00 - Subjective Subjective: f/u colitis. Less abd pain, Rb, diarrhea.. Denies fever, chills, SZ, CP, SOB, MAN, cough, hematuria Objective - Vital Signs/Intake and Output Vital Signs (last 24 hours): Temp Pulse Resp BP Pulse Ox 98.1 F 71 20 109/73 97 07/17/18 07:00 07/17/18 07:00 07/17/18 07:00 07/17/18 07:00 07/17/18 07:00 Intake and Output: 07/17/18 07/17/18 06:59 18:59 Intake Total 480 Balance 480 - Medications Medications: Current Medications Dicyclomine HCl (Bentyl) 10 mg PO QID [facility] Last Admin: 07/17/18 13:32 Dose: 10 mg Mesalamine (Delzicol Dr) 800 mg PO TID [facility] Last Admin: 07/17/18 13:32 Dose: 800 mg Mesalamine (Rowasa Enema) 4 gm RC HS [facility] Last Admin: 07/16/18 21:55 Dose: 4 gm Pantoprazole Sodium (Protonix Ec Tab) 40 mg PO DAILY [facility] Last Admin: 07/17/18 09:17 Dose: 40 mg - Labs Labs: 07/15/18 07:46 07/15/18 07:46 - Constitutional Appears: Well - Respiratory Exam Respiratory Exam: Clear to Ausculation Bilateral - Cardiovascular Exam Cardiovascular Exam: RRR - GI/Abdominal Exam GI & Abdominal Exam: Soft, Normal Bowel Sounds. absent: Guarding, Tenderness, Mass, Rebound - Extremities Exam Extremities Exam: absent: Calf Tenderness - Neurological Exam Neurological Exam: Alert, Oriented x3 Assessment and Plan (1) Abdominal pain Status: Acute (2) Colitis Assessment & Plan: Improving Rec- CAn discharge if does well on po prednisone. Change to po prednisone, continue PPI, 5- ASA Status: Acute (3) Diarrhea Status: Acute (4) Rectal bleeding Status: Acute
--- NOTE | 2018-07-17 18:51 | CP.PCM.PN ---
Subjective - Date & Time of Evaluation Date of Evaluation: 07/17/18 - Subjective Subjective: patient seen and examined today no nausea no vomiting no fever no dizziness no diarrhea no shortness of breath Objective - Vital Signs/Intake and Output Vital Signs (last 24 hours): Temp Pulse Resp BP Pulse Ox 98.0 F 65 20 114/78 97 07/17/18 15:00 07/17/18 15:00 07/17/18 15:00 07/17/18 15:00 07/17/18 15:00 Intake and Output: 07/17/18 07/17/18 06:59 18:59 Intake Total 480 Balance 480 - Medications Medications: Current Medications Dicyclomine HCl (Bentyl) 10 mg PO QID [facility] Last Admin: 07/17/18 17:26 Dose: 10 mg Mesalamine (Delzicol Dr) 800 mg PO TID [facility] Last Admin: 07/17/18 17:26 Dose: 800 mg Mesalamine (Rowasa Enema) 4 gm RC HS [facility] Last Admin: 07/16/18 21:55 Dose: 4 gm Pantoprazole Sodium (Protonix Ec Tab) 40 mg PO DAILY [facility] Last Admin: 07/17/18 09:17 Dose: 40 mg Prednisone (Prednisone Tab) 20 mg PO DAILY [facility] - Labs Labs: 07/15/18 07:46 07/15/18 07:46 - Constitutional Appears: Well - Head Exam Head Exam: ATRAUMATIC, NORMAL INSPECTION, NORMOCEPHALIC - Eye Exam Eye Exam: EOMI, Normal appearance, PERRL Pupil Exam: NORMAL ACCOMODATION, PERRL - ENT Exam ENT Exam: Mucous Membranes Moist, Normal Exam - Neck Exam Neck Exam: Full ROM, Normal Inspection. absent: Lymphadenopathy - Respiratory Exam Respiratory Exam: Decreased Breath Sounds - Cardiovascular Exam Cardiovascular Exam: REGULAR RHYTHM, +S1, +S2 - GI/Abdominal Exam GI & Abdominal Exam: Soft, Diminished Bowel Sounds - Rectal Exam Rectal Exam: Deferred - Neurological Exam Neurological Exam: Oriented x3 Assessment and Plan - Assessment and Plan (Free Text) Plan: plan discussed with patient moderate complexity of care bentyl delzicol dr prednisone tab protonix ec tab rowasa enema medications reviewed labs and vitals reviewed
[2018-07-18 08:39] VITALS: BP 121/84; PULSE 69; TEMP 97.8
[2018-07-18] MEDS: Pantoprazole 40 mg EC Tab PO SCH (10:12)
--- NOTE | 2018-07-18 13:26 | CP.PCM.PN ---
Subjective - Date & Time of Evaluation Date of Evaluation: 07/18/18 Time of Evaluation: 13:25 - Subjective Subjective: PATIENT SEEN AND EXAMINED AT THE BEDSIDE Objective - Vital Signs/Intake and Output Vital Signs (last 24 hours): Temp Pulse Resp BP Pulse Ox 97.8 F 69 20 121/84 97 07/18/18 07:25 07/18/18 07:25 07/18/18 07:25 07/18/18 07:25 07/18/18 07:25 Intake and Output: 07/18/18 07/18/18 06:59 18:59 Intake Total 300 Balance 300 - Medications Medications: Current Medications Dicyclomine HCl (Bentyl) 10 mg PO QID [facility] Last Admin: 07/18/18 10:12 Dose: 10 mg Mesalamine (Delzicol Dr) 800 mg PO TID [facility] Last Admin: 07/18/18 10:12 Dose: 800 mg Mesalamine (Rowasa Enema) 4 gm RC HS [facility] Last Admin: 07/17/18 21:03 Dose: Not Given Morphine Sulfate (Morphine) 2 mg IVP Q4 PRN PRN Reason: Pain, moderate (4-7) Last Admin: 07/17/18 21:54 Dose: 2 mg Pantoprazole Sodium (Protonix Ec Tab) 40 mg PO DAILY [facility] Last Admin: 07/18/18 10:12 Dose: 40 mg Prednisone (Prednisone Tab) 20 mg PO DAILY [facility] Last Admin: 07/18/18 10:12 Dose: 20 mg - Labs Labs: 07/15/18 07:46 07/15/18 07:46 Assessment and Plan - Assessment and Plan (Free Text) Assessment: FOLLOW UP WITH DR Sabine GUTIERREZ IN HIS OFFICE FOLLOW UP WITH DR THOMPSON IN HIS OFFICE IN 2 WEEKS CONTINUE HOME MEDICATION NEW PRESCRIPTION GIVEN MESALAMINE 800 MG PO TID [facility] 10 MG PO QID PROTONIX 40 MG PO DAILY PREDNISONE 20 MG PO DAILY [facility]IV[facility] TOLERATED CALL DR Sabine GUTIERREZ OR GO TO THE EMERGENCY ROOM IF SYMPTOM RETURN OR WORSENING
== END 2018-07-18 13:39 | disposition home or self-care (01) ==
LOC: C.ER 02:18 → C.9E 05:39 → C.5S 05:58
PROVIDERS: ADMIT Internal Medicine Nephrology; ATTEND Internal Medicine Nephrology
DX: K51.50 Left sided colitis without complications (principal); F10.10 Alcohol abuse, uncomplicated; F41.9 Anxiety disorder, unspecified; J45.909 Unspecified asthma, uncomplicated; Z87.891 Personal history of nicotine dependence; Z91.14 Patient's other noncompliance with medication regimen
CPT/HCPCS: 36415; 80053; 83690; 85025; 85027; 86140; 96361; 96374; 96375; 96376; 99285; C9113; G0378; J2270; J2920; J2930; J7030